=== PATIENT | male | born 1975 | race Caucasian/White ===

== ENCOUNTER → 2019-01-30 12:39 | Outpatient (CLI) | payer MEDICAID, SELFPAY ==
[2019-01-30 13:42] LABS: Add Manual Diff / Slide Review NO; Basophils Absolute Auto 100 /uL (0-100); Basophils Percent Auto 1.2 % (0-2); Eosinophils Absolute Auto 100 /uL (0-450); Eosinophils Percent Auto 1.9 % (2-4); Hematocrit 47.4 % (41-53); Hemoglobin 17.2 g/dL (13.5-17.5); Lymphocytes Absolute Auto 2000 /uL (1100-4500); Lymphocytes Percent Auto 41.3 % (25-40); Mean Corpuscular HGB Conc 36.4 % (30-36); Mean Corpuscular Hemoglobin 32.1 PG (26-34); Mean Corpuscular Volume 88.3 fL (80-100); Monocytes Absolute Auto 400 /uL (0-900); Monocytes Percent Auto 9.2 % (3-14); Neutrophils Absolute Auto 2300 /uL (1500-7000); Neutrophils Percent Auto 46.4 % (50-75); Platelet Count 233 X10^3/uL (150-400); Red Blood Cell Count 5.36 X10^6/uL (4.5-5.9); Red Cell Distribution Width 16.5 % (11.6-14.8); White Blood Cell Count 4.9 X10^3/uL (4.5-11.0)
[2019-01-30 13:43] LABS: Alanine Aminotransferase 10 IU/L (21-72); Albumin 4.7 g/dL (3.5-5.0); Albumin Globulin Ratio 1.5 (1.0-2.8); Alkaline Phosphatase 135 U/L (38-126); Aspartate Aminotransferase 16 IU/L (17-59); BUN Creatinine Ratio 21.4 (6-22); Bilirubin Total 1.4 mg/dL (0.2-1.3); Blood Urea Nitrogen 15 mg/dL (9-20); Calcium 9.3 mg/dL (8.4-10.2); Carbon Dioxide 11 mmol/L (22-32); Chloride 99 mmol/L (98-107); Estimated Glomerular Filt Rate > 60.0 mL/min (>60); Globulin 3.1 g/dL (1.7-4.1); Glucose 304 mg/dL (70-100); HDL Cholesterol 27 mg/dL (40-60); Potassium 4.8 mmol/L (3.4-5.1); Sodium 135 mmol/L (137-145); Total Protein 7.8 g/dL (6.3-8.2)
[2019-01-30 13:53] LABS: Hemoglobin A1C% w Est Avg Glu 13.2 % (4.0-6.0)
[2019-01-30 14:16] LABS: Cholesterol 502 mg/dL (140-199); HEMOLYSIS 185 (0-50); Triglycerides 3689 mg/dL (35-150)
== END ==
PROVIDERS: PCP Nurse Practitioner; Visit Provider Nurse Practitioner
DX: E11.9 Type 2 diabetes mellitus without complications (principal); E78.00 Pure hypercholesterolemia, unspecified; Z79.4 Long term (current) use of insulin; Z13.29 Encounter for screening for other suspected endocrine disorder
CPT/HCPCS: 36415; 80053; 80061; 83036; 84443; 85025

== ENCOUNTER 2019-09-04 12:24 | Inpatient (IN) | payer SELFPAY ==
[2019-09-04] VITALS (7 sets, daily range): BP systolic 95–128; BP diastolic 58–71; PULSE 89–112; RESP 14–24; TEMP 35.9–36.8; O2SAT 60–100; BMI 24.2
[2019-09-04] MEDS: MORPHINE 4 MG/ML INJ IV (12:43)
--- NOTE | 2019-09-04 12:43 | ED.ABDPAIN ---
HPI - Abdominal Pain <JEFFRY Hampton - Last Filed: 09/04/19 18:53> General Chief Complaint: Abdominal Pain Stated Complaint: LEFT SIDE LOWER PAIN NAUSEA Time Seen by Provider: 09/04/19 12:25 Source: patient Mode of arrival: Ambulatory Limitations: no limitations History of Present Illness HPI narrative: The patient is a 43-year-old male nonsmoker with history of type 2 diabetes and hypercholesterolemia who presents with a chief complaint of right lower quadrant pain for the past hour. He states it is getting worse. A few days ago on Tuesday he had some nausea and vomiting but states that he has improved since. States he felt completely better. States his last bowel movement was this morning. Denies any history of abdominal surgeries or kidney stones. Complains of nausea, no vomiting. Denies any chest pain. Complains of shortness of breath, but only associated with the pain. Has not taken anything to feel better. Denies any dysuria urgency or frequency. The patient does not recall the last time he checked his blood sugar, states he has been using only half of his insulin because he cannot afford more. States he has not checked his blood sugar in several days. No precipitating factors to the onset of abdominal pain 1 hour ago. Last solid food was midnight, last water intake approximately 12:15 p.m. Related Data Home Medications Medication Instructions Recorded Confirmed insulin aspart U-100 [Novolog 5 - 10 unit SUBCUT TID 09/04/19 09/04/19 U-100 Insulin aspart] Previous Rx's Medication Instructions Recorded metformin 500 mg tablet 500 mg PO BID #180 tab 01/30/19 simvastatin 10 mg tablet 10 mg PO BEDTIME #30 tab 02/13/19 insulin glargine 100 unit/mL (3 30 unit SUBCUT DAILY #15 ml 05/30/19 mL) subcutaneous pen Allergies Allergy/AdvReac Type Severity Reaction Status Date / Time No Known Drug Allergies Allergy Verified 09/04/19 12:46 Review of Systems <JEFFRY Hampton - Last Filed: 09/04/19 18:53> Review of Systems Narrative: GENERAL: Denies chills, fatigue, malaise, fever, sweats. HEENT: Denies sinus pain, ear pain, sore throat, difficulty swallowing, dizziness. RESPIRATORY: Denies dyspnea, cough, wheezing, hemoptysis, sputum. CARDIOVASCULAR: Denies chest pain, palpitations, orthopnea, edema, GASTROINTESTINAL: See HPI : Denies dysuria, frequency, incontinence, hematuria, urinary retention. MUSCULOSKELETAL: denies weakness, joint pain, or bony pain SKIN: Denies rash, skin lesions, or other NEUROLOGIC: Denies weakness, headache, numbness, change in speech, confusion, seizures, incoordination. PSYCHIATRIC: No concerning psychosocial issues. 12 point review of systems is negative except for those stated above Patient History <DARIANA HamptonMARY [facility] - Last Filed: 09/04/19 18:53> Medical History Diabetes insipidus (Chronic ~2000) Social History household members: family Smoking Status: Never smoker Smoking Status: Never smoker Exam <DARIANA Hampton- - Last Filed: 09/04/19 18:53> Narrative Exam Narrative: GENERAL: This is a well-nourished, well-developed patient, appears uncomfortable HEAD: Atraumatic. Normocephalic. No temporal or scalp tenderness. EYES: Pupils equal round and reactive. Extraocular motions intact. No scleral icterus. No injection or drainage. ENT: Nose without bleeding, purulent drainage or septal hematoma. Throat without erythema, tonsillar hypertrophy or exudate. Uvula midline. Airway patent. Dry mucous membranes. NECK: Trachea midline. No JVD or lymphadenopathy. Supple, nontender, no meningeal signs. CARDIOVASCULAR: Regular rate and rhythm without murmurs, gallops, or rubs. RESPIRATORY: Clear to auscultation. Breath sounds equal bilaterally. No wheezes, rales, or rhonchi. No cough. No increased respiratory effort. No accessory muscle use. GASTROINTESTINAL: Abdomen soft, tender to right lower quadrant palpation. Active bowel sounds all 4 quadrants. EXTREMITIES: No clubbing, cyanosis, or edema. No joint tenderness, effusion, or edema noted. BACK: Nontender without deformity or crepitance. No flank tenderness. NEURO: AOx3. SKIN: No rash or erythema on visible skin Initial Vital Signs Initial Vital Signs: Vital Signs Temperature 96.7 F L 09/04/19 12:25 Pulse Rate 112 H 09/04/19 12:25 Respiratory Rate 24 09/04/19 12:25 Blood Pressure 114/71 09/04/19 12:25 Pulse Oximetry 100 09/04/19 12:25 <Giulia Araujo DO - Last Filed: 09/04/19 19:33> Initial Vital Signs Initial Vital Signs: Vital Signs Temperature 96.7 F L 09/04/19 12:25 Pulse Rate 112 H 09/04/19 12:25 Respiratory Rate 24 09/04/19 12:25 Blood Pressure 114/71 09/04/19 12:25 Pulse Oximetry 100 09/04/19 12:25 Course <DARIANA Hampton- - Last Filed: 09/04/19 18:53> Orders Ordered: ED Orders 09/04/19 12:41 Venous Blood Gas Stat 09/04/19 12:56 Amylase Stat Complete Blood Count AUTO DIFF Stat Comprehensive Metabolic Panel Stat Ketones (Beta-Hydroxybutyrate) Stat Lactate (Lactic Acid) Stat Lipase Stat Procalcitonin Stat 09/04/19 13:26 CT abdomen pelvis w con Stat 09/04/19 14:41 Consult to [facility] [place] Stat 09/04/19 15:01 Basic Metabolic Panel Stat Lactate (Lactic Acid) Stat 09/04/19 15:14 Consult to General Surgery Stat Dextrose (D50w) 25 gm IV PRN PRN PRN Reason: Hypoglycemia Piperacillin/Tazobactam/Dextrose (Zosyn) 3.375 gm in 50 mls @ 100 mls/hr IV Q6H [facility] Sodium Chloride (Normal Saline 0.9%) 1,000 mls @ 100 mls/hr IV CONT [facility] Last Admin: 09/04/19 18:43 Dose: 100 mls/hr Documented by: NIC Insulin Aspart (Novolog Flexpen) 0 unit SUBCUT Q6H [facility]; Protocol Last Admin: 09/04/19 18:43 Dose: 5 unit Documented by: NIC Cosigned by: NOREEN Insulin Human NPH (Humulin N) 5 unit SUBCUT 0800 [facility] Insulin Human NPH (Humulin N) 10 unit SUBCUT 1600 [facility] Insulin Human NPH (Humulin N) 5 unit SUBCUT 0000 [facility] Morphine Sulfate (Morphine) 2 mg IV Q4HR PRN PRN Reason: Pain, Moderate (4-6) Ondansetron HCl (Zofran) 4 mg IV Q6HR PRN PRN Reason: Nausea And Vomiting Simvastatin (Zocor) 10 mg PO BEDTIME [facility] Discontinued Medications Hydromorphone HCl (Dilaudid) 1 mg IV NOW ONE Stop: 09/04/19 12:55 Last Admin: 09/04/19 12:59 Dose: 1 mg Documented by: LADI Sodium Chloride (Normal Saline 0.9%) 1,000 mls @ 1,000 mls/hr IV BOLUS ONE Stop: 09/04/19 13:32 Last Infusion: 09/04/19 13:45 Dose: 0 mls/hr Documented by: Admin: 09/04/19 12:44 Dose: 1,000 mls/hr Documented by: JUN Sodium Chloride (Normal Saline 0.9%) 1,000 mls @ 1,000 mls/hr IV BOLUS ONE Stop: 09/04/19 13:46 Last Infusion: 09/04/19 14:04 Dose: 0 mls/hr Documented by: Admin: 09/04/19 12:59 Dose: 1,000 mls/hr Documented by: LADI Piperacillin/Tazobactam/Dextrose (Zosyn) 3.375 gm in 50 mls @ 100 mls/hr IV NOW ONE Stop: 09/04/19 15:15 Last Infusion: 09/04/19 15:38 Dose: 0 mls/hr Documented by: Admin: 09/04/19 15:08 Dose: 100 mls/hr Documented by: LADI Piperacillin/Tazobactam/Dextrose (Zosyn) 3.375 gm in 50 mls @ 100 mls/hr IV Q6H [facility] Last Admin: 09/04/19 16:39 Dose: Not Given Documented by: SILVIA Insulin Human NPH (Humulin N) 10 unit SUBCUT NOW ONE Stop: 09/04/19 15:38 Last Admin: 09/04/19 15:45 Dose: 10 unit Documented by: LADI Cosigned by: BAKARI Insulin Human NPH (Humulin N) 10 unit SUBCUT 0000 [facility] Morphine Sulfate (Morphine) 4 mg IV NOW ONE Stop: 09/04/19 12:34 Last Admin: 09/04/19 12:43 Dose: 4 mg Documented by: JUN Morphine Sulfate (Morphine) 2 mg IV Q4HR PRN PRN Reason: Pain, Moderate (4-6) Ondansetron HCl (Zofran) 4 mg IV NOW ONE Stop: 09/04/19 12:34 Last Admin: 09/04/19 12:44 Dose: 4 mg Documented by: JUN Ondansetron HCl (Zofran) 4 mg IV Q6HR PRN PRN Reason: Nausea And Vomiting Reevaluation(s) Reevaluation #1: Patient's pain is much improved Time: 13:30 Reevaluation #2: Discussed CT results of acute appendicitis with patient. Patient's last solid intake was midnight. Last fluid intake just afternoon today. This was water. Discussed plan to speak with surgery. Time: 14:10 Consultations Consultation #1: Spoke with Dr. Mendiola from surgery, who states the patient will not get surgery today due to his uncontrolled blood sugars. Encourage medicine admit given patient's comorbidities as well as early DKA. Zosyn started per surgery. Time: 14:15 Consultation #2: Spoke with Dr. Peraza, hospitalist regarding patient's admission. At this point patient's lactate has normalized, his gap is closed from 22-16. Patient was likely in acidosis related to early DKA, however has normalized with 2 L of IV fluid. 10 units of NPH given per hospitalist. Dr. Peraza kindly admits the patient to inpatient status with surgery consult and plan for appendectomy tomorrow Time: 15:20 Vital Signs Vital signs: Vital Signs - 8 hr 09/04/19 12:25 09/04/19 13:02 09/04/19 13:08 Temperature 96.7 F L Pulse Rate 112 H Respiratory Rate 24 Blood Pressure 114/71 Blood Pressure [Right Arm] Pulse Oximetry 100 60 L 100 09/04/19 14:35 Temperature Pulse Rate 101 H Respiratory Rate 14 Blood Pressure Blood Pressure [Right Arm] 113/58 L Pulse Oximetry 93 <Giulia Araujo, DO - Last Filed: 09/04/19 19:33> Orders Ordered: ED Orders 09/04/19 12:41 Venous Blood Gas Stat 09/04/19 12:56 Amylase Stat Complete Blood Count AUTO DIFF Stat Comprehensive Metabolic Panel Stat Ketones (Beta-Hydroxybutyrate) Stat Lactate (Lactic Acid) Stat Lipase Stat Procalcitonin Stat 09/04/19 13:26 CT abdomen pelvis w con Stat 09/04/19 14:41 [place] to [facility] [place] [facility] Stat 09/04/19 15:01 Basic Metabolic Panel Stat Lactate (Lactic Acid) Stat 09/04/19 15:14 Consult to General Surgery Stat Dextrose (D50w) 25 gm IV PRN PRN PRN Reason: Hypoglycemia Piperacillin/Tazobactam/Dextrose (Zosyn) 3.375 gm in 50 mls @ 100 mls/hr IV Q6H [facility] Sodium Chloride (Normal Saline 0.9%) 1,000 mls @ 100 mls/hr IV CONT [facility] Last Admin: 09/04/19 18:43 Dose: 100 mls/hr Documented by: NIC Insulin Aspart (Novolog Flexpen) 0 unit SUBCUT Q6H [facility]; Protocol Last Admin: 09/04/19 18:43 Dose: 5 unit Documented by: NIC Cosigned by: NOREEN Insulin Human NPH (Humulin N) 5 unit SUBCUT 0800 [facility] Insulin Human NPH (Humulin N) 10 unit SUBCUT 1600 [facility] Insulin Human NPH (Humulin N) 5 unit SUBCUT 0000 [facility] Morphine Sulfate (Morphine) 2 mg IV Q4HR PRN PRN Reason: Pain, Moderate (4-6) Ondansetron HCl (Zofran) 4 mg IV Q6HR PRN PRN Reason: Nausea And Vomiting Simvastatin (Zocor) 10 mg PO BEDTIME [facility] Discontinued Medications Hydromorphone HCl (Dilaudid) 1 mg IV NOW ONE Stop: 09/04/19 12:55 Last Admin: 09/04/19 12:59 Dose: 1 mg Documented by: LADI Sodium Chloride (Normal Saline 0.9%) 1,000 mls @ 1,000 mls/hr IV BOLUS ONE Stop: 09/04/19 13:32 Last Infusion: 09/04/19 13:45 Dose: 0 mls/hr Documented by: Admin: 09/04/19 12:44 Dose: 1,000 mls/hr Documented by: JUN Sodium Chloride (Normal Saline 0.9%) 1,000 mls @ 1,000 mls/hr IV BOLUS ONE Stop: 09/04/19 13:46 Last Infusion: 09/04/19 14:04 Dose: 0 mls/hr Documented by: Admin: 09/04/19 12:59 Dose: 1,000 mls/hr Documented by: SCANAPO Piperacillin/Tazobactam/Dextrose (Zosyn) 3.375 gm in 50 mls @ 100 mls/hr IV NOW ONE Stop: 09/04/19 15:15 Last Infusion: 09/04/19 15:38 Dose: 0 mls/hr Documented by: Admin: 09/04/19 15:08 Dose: 100 mls/hr Documented by: LADI Piperacillin/Tazobactam/Dextrose (Zosyn) 3.375 gm in 50 mls @ 100 mls/hr IV Q6H [facility] Last Admin: 09/04/19 16:39 Dose: Not Given Documented by: SILVIA Insulin Human NPH (Humulin N) 10 unit SUBCUT NOW ONE Stop: 09/04/19 15:38 Last Admin: 09/04/19 15:45 Dose: 10 unit Documented by: LADI Cosigned by: BAKARI Insulin Human NPH (Humulin N) 10 unit SUBCUT 0000 [facility] Morphine Sulfate (Morphine) 4 mg IV NOW ONE Stop: 09/04/19 12:34 Last Admin: 09/04/19 12:43 Dose: 4 mg Documented by: JUN Morphine Sulfate (Morphine) 2 mg IV Q4HR PRN PRN Reason: Pain, Moderate (4-6) Ondansetron HCl (Zofran) 4 mg IV NOW ONE Stop: 09/04/19 12:34 Last Admin: 09/04/19 12:44 Dose: 4 mg Documented by: JUN Ondansetron HCl (Zofran) 4 mg IV Q6HR PRN PRN Reason: Nausea And Vomiting Vital Signs Vital signs: Vital Signs - 8 hr 09/04/19 12:25 09/04/19 13:02 09/04/19 13:08 Temperature 96.7 F L Pulse Rate 112 H Respiratory Rate 24 Blood Pressure 114/71 Blood Pressure [Right Arm] Pulse Oximetry 100 60 L 100 09/04/19 14:35 Temperature Pulse Rate 101 H Respiratory Rate 14 Blood Pressure Blood Pressure [Right Arm] 113/58 L Pulse Oximetry 93 MDM - Abdominal Pain <JEFFRY Hampton - Last Filed: 09/04/19 18:53> Lab Data Result diagrams: 09/04/19 12:56 09/04/19 18:25 Labs: Lab Results 09/04/19 09/04/19 09/04/19 Range/Units 12:41 12:56 12:56 WBC 4.6 (4.5-11.0) X10^3/uL RBC 5.25 (4.5-5.9) X10^6/uL Hgb 16.2 (13.5-17.5) g/dL Hct 46.2 (41-53) % MCV 88.0 (80-100) fL MCH 30.9 (26-34) PG MCHC 35.0 (30-36) % RDW 14.7 (11.6-14.8) % Plt Count 154 (150-400) X10^3/uL Neut % (Auto) 77.5 H (50-75) % Lymph % (Auto) 19.4 L (25-40) % [place] % (Auto) 1.8 L (3-14) % Eos % (Auto) 0.7 L (2-4) % Baso % (Auto) 0.6 (0-2) % Neut # (Auto) 3600 (7128-8884) /uL Lymph # (Auto) 900 L (5975-5952) /uL [place] # (Auto) 100 (0-900) /uL Eos # (Auto) 0 (0-450) /uL Baso # (Auto) 0 (0-100) /uL VBG pH 7.41 (7.33-7.43) VBG pCO2 27.7 L (45-50) mmHg VBG pO2 20 L (35-45) mmHg VBG HCO3 17 L (23-28) mmol/L VBG Total CO2 18 L (24-29) mmol/L VBG O2 Saturation 32 L (70-75) % VBG Base Excess -7.0 L (0-4) mmol/L Sodium (137-145) mmol/L Potassium (3.4-5.1) mmol/L Chloride (98-107) mmol/L Carbon Dioxide (22-32) mmol/L BUN (9-20) mg/dL Creatinine (0.66-1.25) mg/dL Estimated GFR (>60) mL/min BUN/Creatinine Ratio (6-22) Glucose (70-100) mg/dL Lactate (0.7-2.1) mmol/L Calcium (8.4-10.2) mg/dL Total Bilirubin (0.2-1.3) mg/dL AST (17-59) IU/L ALT (<50) IU/L Alkaline Phosphatase (38-126) U/L Total Protein (6.3-8.2) g/dL Albumin (3.5-5.0) g/dL Globulin (1.7-4.1) g/dL Albumin/Globulin Ratio (1.0-2.8) Amylase (30-110) U/L Lipase (23-300) U/L Procalcitonin < 0.05 (<0.5) ng/mL Ketones (<0.27) mmol/L 09/04/19 09/04/19 09/04/19 Range/Units 12:56 12:56 12:56 WBC (4.5-11.0) X10^3/uL RBC (4.5-5.9) X10^6/uL Hgb (13.5-17.5) g/dL Hct (41-53) % MCV (80-100) fL MCH (26-34) PG MCHC (30-36) % RDW (11.6-14.8) % Plt Count (150-400) X10^3/uL Neut % (Auto) (50-75) % Lymph % (Auto) (25-40) % [place] % (Auto) (3-14) % Eos % (Auto) (2-4) % Baso % (Auto) (0-2) % Neut # (Auto) (4219-9261) /uL Lymph # (Auto) (4100-9931) /uL [place] # (Auto) (0-900) /uL Eos # (Auto) (0-450) /uL Baso # (Auto) (0-100) /uL VBG pH (7.33-7.43) VBG pCO2 (45-50) mmHg VBG pO2 (35-45) mmHg VBG HCO3 (23-28) mmol/L VBG Total CO2 (24-29) mmol/L VBG O2 Saturation (70-75) % VBG Base Excess (0-4) mmol/L Sodium 136 L (137-145) mmol/L Potassium 3.7 (3.4-5.1) mmol/L Chloride 97 L (98-107) mmol/L Carbon Dioxide 17 L (22-32) mmol/L BUN 13 (9-20) mg/dL Creatinine 0.70 (0.66-1.25) mg/dL Estimated GFR > 60.0 (>60) mL/min BUN/Creatinine Ratio 18.6 (6-22) Glucose 414 H (70-100) mg/dL Lactate 4.3 H* (0.7-2.1) mmol/L Calcium 8.9 (8.4-10.2) mg/dL Total Bilirubin 1.3 (0.2-1.3) mg/dL AST 17 (17-59) IU/L ALT 11 (<50) IU/L Alkaline Phosphatase 79 (38-126) U/L Total Protein 6.7 (6.3-8.2) g/dL Albumin 4.4 (3.5-5.0) g/dL Globulin 2.3 (1.7-4.1) g/dL Albumin/Globulin Ratio 1.9 (1.0-2.8) Amylase 48 (30-110) U/L Lipase 64 (23-300) U/L Procalcitonin (<0.5) ng/mL Ketones 6.07 H (<0.27) mmol/L 09/04/19 09/04/19 Range/Units 15:01 15:01 WBC (4.5-11.0) X10^3/uL RBC (4.5-5.9) X10^6/uL Hgb (13.5-17.5) g/dL Hct (41-53) % MCV (80-100) fL MCH (26-34) PG MCHC (30-36) % RDW (11.6-14.8) % Plt Count (150-400) X10^3/uL Neut % (Auto) (50-75) % Lymph % (Auto) (25-40) % [place] % (Auto) (3-14) % Eos % (Auto) (2-4) % Baso % (Auto) (0-2) % Neut # (Auto) (4824-1395) /uL Lymph # (Auto) (1954-3034) /uL [place] # (Auto) (0-900) /uL Eos # (Auto) (0-450) /uL Baso # (Auto) (0-100) /uL VBG pH (7.33-7.43) VBG pCO2 (45-50) mmHg VBG pO2 (35-45) mmHg VBG HCO3 (23-28) mmol/L VBG Total CO2 (24-29) mmol/L VBG O2 Saturation (70-75) % VBG Base Excess (0-4) mmol/L Sodium 137 (137-145) mmol/L Potassium 4.3 (3.4-5.1) mmol/L Chloride 102 (98-107) mmol/L Carbon Dioxide 19 L (22-32) mmol/L BUN 12 (9-20) mg/dL Creatinine 0.60 L (0.66-1.25) mg/dL Estimated GFR > 60.0 (>60) mL/min BUN/Creatinine Ratio 20.0 (6-22) Glucose 333 H (70-100) mg/dL Lactate 1.0 (0.7-2.1) mmol/L Calcium 8.1 L (8.4-10.2) mg/dL Total Bilirubin (0.2-1.3) mg/dL AST (17-59) IU/L ALT (<50) IU/L Alkaline Phosphatase (38-126) U/L Total Protein (6.3-8.2) g/dL Albumin (3.5-5.0) g/dL Globulin (1.7-4.1) g/dL Albumin/Globulin Ratio (1.0-2.8) Amylase (30-110) U/L Lipase (23-300) U/L Procalcitonin (<0.5) ng/mL Ketones (<0.27) mmol/L Point of care testing: Point of Care Testing Glucose POC [address] scan - abdomen: Radiologist's impression: Sanjiv Torres 43 M [address] [address] [address] Scan Report Signed Patient: Sanjiv Torres [facility]#: [id number] : 1975Acct:[id number] Age/Sex: 43 / MDate of Service: 09/04/19 Loc: ED Accession Number: [id number] Procedure: CT abdomen pelvis w con Ordering Provider: Alessia,Rebekah RELAY MAN-BC PROCEDURE: CT ABDOMEN PELVIS W CON INDICATIONS: right flank pain x 24 hours with nausea TECHNIQUE: After the administration of intravenous contrast, 5 mm thick sections acquired from the diaphragm to the symphysis. 5 mm coronal and sagittal reformats were acquired. For radiation dose reduction, the following was used: automated exposure control, adjustment of mA and/or kV according to patient size. COMPARISON: None. FINDINGS: Image quality: Excellent. ABDOMEN: Lung bases: Lung bases are clear. Heart size is normal. Solid organs: Liver is normal in size and enhancement. Mild hepatic steatosis is seen. Gallbladder is within normal limits. Biliary system is non dilated. Pancreas enhances normally. Spleen is normal in size and enhancement. No adrenal nodules. Kidneys demonstrate normal size and enhancement, without hydronephrosis. Peritoneum and bowel: There is no evidence of bowel obstruction. Appendix is visualized in right lower quadrant and is enlarged with extensive appendiceal wall thickening and periappendiceal fat stranding. Small amount of free fluid in the right lower quadrant abdomen extending to right paracolic gutter is seen. No abscess collection. No peritoneal free air. No other area of abnormal bowel wall thickening. Nodes and vessels: No retroperitoneal or mesenteric adenopathy by size criteria. Aorta and inferior vena cava are normal in size. Miscellaneous: No ventral hernias. PELVIS: Genitourinary: Bladder wall thickness is normal. Miscellaneous: No inguinal hernias or adenopathy. Bones: No suspicious bony lesions. No vertebral body compression fractures. IMPRESSION: 1. Finding is consistent with acute appendicitis. No evidence of periappendiceal abscess. No signs of perforation. No peritoneal free air. 2. No renal stone or hydronephrosis. Dictated by: Joby Farrar M.D. on 09/04/2019 at 13:49 Approved by: Joby Farrar M.D. on 09/04/2019 at 13:53 [facility] Narrative Medical decision making narrative: The patient is a 43-year-old male who presents with a chief complaint of right lower quadrant pain. His pain was much improved with the above-stated medications and therapies. He is a type 2 diabetic, noncompliant due to insurance changes. He presents to the emergency department early DKA, acidotic with a lactate of 4. The initial anion gap was 22, but this normalized to 16 after 2 L of IV fluids. Given patient history an dpresentation, Dr Araujo consulted regarding patients labs and admission plan. His blood sugars improved from the 400s to the high 200s. Patient was found to have acute appendicitis on CT, I contacted the surgery for consult however the patient was admitted to Medicine given his medical complexity and uncontrolled diabetes. Plan is to have surgery in the morning. Patient was admitted to Dr. Peraza with Dr. Mendiola surgery consulting. Patient states understanding and has no questions or concerns. <Giulia Araujo, DO - Last Filed: 09/04/19 19:33> Lab Data Attestation: I reviewed the patient's lab results. Labs: Lab Results 09/04/19 09/04/19 09/04/19 Range/Units 12:41 12:56 12:56 WBC 4.6 (4.5-11.0) X10^3/uL RBC 5.25 (4.5-5.9) X10^6/uL Hgb 16.2 (13.5-17.5) g/dL Hct 46.2 (41-53) % MCV 88.0 (80-100) fL MCH 30.9 (26-34) PG MCHC 35.0 (30-36) % RDW 14.7 (11.6-14.8) % Plt Count 154 (150-400) X10^3/uL Neut % (Auto) 77.5 H (50-75) % Lymph % (Auto) 19.4 L (25-40) % [place] % (Auto) 1.8 L (3-14) % Eos % (Auto) 0.7 L (2-4) % Baso % (Auto) 0.6 (0-2) % Neut # (Auto) 3600 (3524-7518) /uL Lymph # (Auto) 900 L (8735-8327) /uL [place] # (Auto) 100 (0-900) /uL Eos # (Auto) 0 (0-450) /uL Baso # (Auto) 0 (0-100) /uL VBG pH 7.41 (7.33-7.43) VBG pCO2 27.7 L (45-50) mmHg VBG pO2 20 L (35-45) mmHg VBG HCO3 17 L (23-28) mmol/L VBG Total CO2 18 L (24-29) mmol/L VBG O2 Saturation 32 L (70-75) % VBG Base Excess -7.0 L (0-4) mmol/L Sodium (137-145) mmol/L Potassium (3.4-5.1) mmol/L Chloride (98-107) mmol/L Carbon Dioxide (22-32) mmol/L BUN (9-20) mg/dL Creatinine (0.66-1.25) mg/dL Estimated GFR (>60) mL/min BUN/Creatinine Ratio (6-22) Glucose (70-100) mg/dL Lactate (0.7-2.1) mmol/L Calcium (8.4-10.2) mg/dL Total Bilirubin (0.2-1.3) mg/dL AST (17-59) IU/L ALT (<50) IU/L Alkaline Phosphatase (38-126) U/L Total Protein (6.3-8.2) g/dL Albumin (3.5-5.0) g/dL Globulin (1.7-4.1) g/dL Albumin/Globulin Ratio (1.0-2.8) Amylase (30-110) U/L Lipase (23-300) U/L Procalcitonin < 0.05 (<0.5) ng/mL Ketones (<0.27) mmol/L 09/04/19 09/04/19 09/04/19 Range/Units 12:56 12:56 12:56 WBC (4.5-11.0) X10^3/uL RBC (4.5-5.9) X10^6/uL Hgb (13.5-17.5) g/dL Hct (41-53) % MCV (80-100) fL MCH (26-34) PG MCHC (30-36) % RDW (11.6-14.8) % Plt Count (150-400) X10^3/uL Neut % (Auto) (50-75) % Lymph % (Auto) (25-40) % [place] % (Auto) (3-14) % Eos % (Auto) (2-4) % Baso % (Auto) (0-2) % Neut # (Auto) (5646-9532) /uL Lymph # (Auto) (8992-5048) /uL [place] # (Auto) (0-900) /uL Eos # (Auto) (0-450) /uL Baso # (Auto) (0-100) /uL VBG pH (7.33-7.43) VBG pCO2 (45-50) mmHg VBG pO2 (35-45) mmHg VBG HCO3 (23-28) mmol/L VBG Total CO2 (24-29) mmol/L VBG O2 Saturation (70-75) % VBG Base Excess (0-4) mmol/L Sodium 136 L (137-145) mmol/L Potassium 3.7 (3.4-5.1) mmol/L Chloride 97 L (98-107) mmol/L Carbon Dioxide 17 L (22-32) mmol/L BUN 13 (9-20) mg/dL Creatinine 0.70 (0.66-1.25) mg/dL Estimated GFR > 60.0 (>60) mL/min BUN/Creatinine Ratio 18.6 (6-22) Glucose 414 H (70-100) mg/dL Lactate 4.3 H* (0.7-2.1) mmol/L Calcium 8.9 (8.4-10.2) mg/dL Total Bilirubin 1.3 (0.2-1.3) mg/dL AST 17 (17-59) IU/L ALT 11 (<50) IU/L Alkaline Phosphatase 79 (38-126) U/L Total Protein 6.7 (6.3-8.2) g/dL Albumin 4.4 (3.5-5.0) g/dL Globulin 2.3 (1.7-4.1) g/dL Albumin/Globulin Ratio 1.9 (1.0-2.8) Amylase 48 (30-110) U/L Lipase 64 (23-300) U/L Procalcitonin (<0.5) ng/mL Ketones 6.07 H (<0.27) mmol/L 09/04/19 09/04/19 Range/Units 15:01 15:01 WBC (4.5-11.0) X10^3/uL RBC (4.5-5.9) X10^6/uL Hgb (13.5-17.5) g/dL Hct (41-53) % MCV (80-100) fL MCH (26-34) PG MCHC (30-36) % RDW (11.6-14.8) % Plt Count (150-400) X10^3/uL Neut % (Auto) (50-75) % Lymph % (Auto) (25-40) % [place] % (Auto) (3-14) % Eos % (Auto) (2-4) % Baso % (Auto) (0-2) % Neut # (Auto) (6043-6484) /uL Lymph # (Auto) (3507-4848) /uL [place] # (Auto) (0-900) /uL Eos # (Auto) (0-450) /uL Baso # (Auto) (0-100) /uL VBG pH (7.33-7.43) VBG pCO2 (45-50) mmHg VBG pO2 (35-45) mmHg VBG HCO3 (23-28) mmol/L VBG Total CO2 (24-29) mmol/L VBG O2 Saturation (70-75) % VBG Base Excess (0-4) mmol/L Sodium 137 (137-145) mmol/L Potassium 4.3 (3.4-5.1) mmol/L Chloride 102 (98-107) mmol/L Carbon Dioxide 19 L (22-32) mmol/L BUN 12 (9-20) mg/dL Creatinine 0.60 L (0.66-1.25) mg/dL Estimated GFR > 60.0 (>60) mL/min BUN/Creatinine Ratio 20.0 (6-22) Glucose 333 H (70-100) mg/dL Lactate 1.0 (0.7-2.1) mmol/L Calcium 8.1 L (8.4-10.2) mg/dL Total Bilirubin (0.2-1.3) mg/dL AST (17-59) IU/L ALT (<50) IU/L Alkaline Phosphatase (38-126) U/L Total Protein (6.3-8.2) g/dL Albumin (3.5-5.0) g/dL Globulin (1.7-4.1) g/dL Albumin/Globulin Ratio (1.0-2.8) Amylase (30-110) U/L Lipase (23-300) U/L Procalcitonin (<0.5) ng/mL Ketones (<0.27) mmol/L Point of care testing: Point of Care Testing Glucose POC 261 MDM Narrative Medical decision making narrative: Initial anion gap 22 elevated lactate 4.3 Patient was dramatic and hyperventilating upon arrival. He received 2 L of IV fluids an I and a gap is now 16. Lactic acid has returned to normal. This time I don't see a necessity for insulin drip. Discharge Plan Departure Patient Disposition: Admitted As Inpatient Clinical Impression: Hyperglycemia Appendicitis Qualifiers: Appendicitis type: acute appendicitis Acute appendicitis type: unspecified acute appendicitis type Qualified Code(s): K35.80 - Unspecified acute appendicitis Discharge Date/Time: 09/04/19 16:03 Admit Date/Time: 09/04/19 16:03 Admit Provider: Gary Peraza
[2019-09-04] MEDS: ONDANSETRON 4 MG/2 ML INJ IV (12:44)
[2019-09-04] MEDS: SODIUM CHLORIDE 0.9% 1,000 ML 1000 ML IV ×2 (12:44→12:59)
[2019-09-04] MEDS: HYDROMORPHONE 1 MG INJ IV (12:59)
[2019-09-04 13:03] LABS: Add Manual Diff / Slide Review NO; Basophils Absolute Auto 0 /uL (0-100); Basophils Percent Auto 0.6 % (0-2); Eosinophils Absolute Auto 0 /uL (0-450); Eosinophils Percent Auto 0.7 % (2-4); Hematocrit 46.2 % (41-53); Hemoglobin 16.2 g/dL (13.5-17.5); Lymphocytes Absolute Auto 900 /uL (1100-4500); Lymphocytes Percent Auto 19.4 % (25-40); Mean Corpuscular Hemoglobin 30.9 PG (26-34); Monocytes Absolute Auto 100 /uL (0-900); Monocytes Percent Auto 1.8 % (3-14); Neutrophils Absolute Auto 3600 /uL (1500-7000); Neutrophils Percent Auto 77.5 % (50-75); Platelet Count 154 X10^3/uL (150-400); Red Blood Cell Count 5.25 X10^6/uL (4.5-5.9); Red Cell Distribution Width 14.7 % (11.6-14.8); White Blood Cell Count 4.6 X10^3/uL (4.5-11.0)
[2019-09-04 13:16] LABS: Alanine Aminotransferase 11 IU/L (<50); Albumin 4.4 g/dL (3.5-5.0); Albumin Globulin Ratio 1.9 (1.0-2.8); Alkaline Phosphatase 79 U/L (38-126); Amylase 48 U/L (30-110); Aspartate Aminotransferase 17 IU/L (17-59); BUN Creatinine Ratio 18.6 (6-22); Bilirubin Total 1.3 mg/dL (0.2-1.3); Blood Urea Nitrogen 13 mg/dL (9-20); Calcium 8.9 mg/dL (8.4-10.2); Carbon Dioxide 17 mmol/L (22-32); Chloride 97 mmol/L (98-107); Estimated Glomerular Filt Rate > 60.0 mL/min (>60); Globulin 2.3 g/dL (1.7-4.1); Glucose 414 mg/dL (70-100); HEMOLYSIS 37 (0-50); Lipase 64 U/L (23-300); Potassium 3.7 mmol/L (3.4-5.1); Sodium 136 mmol/L (137-145); Total Protein 6.7 g/dL (6.3-8.2)
[2019-09-04 13:17] LABS: Ketones (Beta-Hydroxybutyrate) 6.07 mmol/L (<0.27)
--- NOTE | 2019-09-04 13:21 | PC.NURSE ---
pt desated down to 60% after receiving 4mg morphine, and 1mg Dilaudid, oxygen placed on patient.
--- NOTE | 2019-09-04 13:26 | DI.CT.S_ITS ---
PROCEDURE: CT ABDOMEN PELVIS W CON INDICATIONS: right flank pain x 24 hours with nausea TECHNIQUE: After the administration of intravenous contrast, 5 mm thick sections acquired from the diaphragm to the symphysis. 5 mm coronal and sagittal reformats were acquired. For radiation dose reduction, the following was used: automated exposure control, adjustment of mA and/or kV according to patient size. COMPARISON: None. FINDINGS: Image quality: Excellent. ABDOMEN: Lung bases: Lung bases are clear. Heart size is normal. Solid organs: Liver is normal in size and enhancement. Mild hepatic steatosis is seen. Gallbladder is within normal limits. Biliary system is non dilated. Pancreas enhances normally. Spleen is normal in size and enhancement. No adrenal nodules. Kidneys demonstrate normal size and enhancement, without hydronephrosis. Peritoneum and bowel: There is no evidence of bowel obstruction. Appendix is visualized in right lower quadrant and is enlarged with extensive appendiceal wall thickening and periappendiceal fat stranding. Small amount of free fluid in the right lower quadrant abdomen extending to right paracolic gutter is seen. No abscess collection. No peritoneal free air. No other area of abnormal bowel wall thickening. Nodes and vessels: No retroperitoneal or mesenteric adenopathy by size criteria. Aorta and inferior vena cava are normal in size. Miscellaneous: No ventral hernias. PELVIS: Genitourinary: Bladder wall thickness is normal. Miscellaneous: No inguinal hernias or adenopathy. Bones: No suspicious bony lesions. No vertebral body compression fractures. IMPRESSION: 1. Finding is consistent with acute appendicitis. No evidence of periappendiceal abscess. No signs of perforation. No peritoneal free air. 2. No renal stone or hydronephrosis. Dictated by: Joby Farrar M.D. on 09/04/2019 at 13:49 Approved by: Joby Farrar M.D. on 09/04/2019 at 13:53
[2019-09-04 13:28] LABS: Lactate (Lactic Acid) 4.3 mmol/L (0.7-2.1)
[2019-09-04 13:35] LABS: Procalcitonin < 0.05 ng/mL (<0.5)
[2019-09-04 14:20] LABS: HCO3 VBG 17 mmol/L (23-28); Oxygen Saturation VBG 32 % (70-75); PCO2 VBG 27.7 mmHg (45-50); PO2 VBG 20 mmHg (35-45); Total CO2 VBG 18 mmol/L (24-29); pH VBG 7.41 (7.33-7.43)
[2019-09-04 14:59] LABS: Reflexed Lactate in 2 Hours Y
[2019-09-04] MEDS: PIPERACILLIN-TAZO 3.375 GM/50 ML FROZ.PIGGY IV ×2 (15:08→23:42)
[2019-09-04 15:21] LABS: Blood Urea Nitrogen 12 mg/dL (9-20); Calcium 8.1 mg/dL (8.4-10.2); Carbon Dioxide 19 mmol/L (22-32); Chloride 102 mmol/L (98-107); Estimated Glomerular Filt Rate > 60.0 mL/min (>60); Glucose 333 mg/dL (70-100); HEMOLYSIS 34 (0-50); Potassium 4.3 mmol/L (3.4-5.1); Sodium 137 mmol/L (137-145)
[2019-09-04] MEDS: INSULIN NPH 100 UNIT/ML VIAL 10 UNIT SUBCUT (15:45)
--- NOTE | 2019-09-04 15:55 | P.CONS_ITS ---
History of Present Illness Consult details Date Patient Seen: 09/04/19 Time Patient Seen: 15:56 Chief complaint: LEFT SIDE LOWER PAIN NAUSEA Reason for consult: Acute appendicitis with diabetic ketoacidosis Narrative: 43-year-old white male patient was and wakened this morning with right lower quadrant abdominal pain. He is an insulin-dependent diabetic for the past 20 years and is very poorly controlled. He comes in with a blood sugar nearly 400 a lactic acid of 4-1/2. He has had an abdominal CT scan which shows uncomplicated acute appendicitis. He has been admitted on the medical service for control of his DKA. IV antibiotics have been started. My plan is appendectomy tomorrow. [facility] Medical History Diabetes insipidus (Chronic ~2000) Social History Smoking Status: Never smoker Meds Home Medications and Allergies Home Medications Medication Instructions Recorded Confirmed Type metformin 500 mg tablet 500 mg PO BID #180 tab 01/30/19 09/04/19 Rx simvastatin 10 mg tablet 10 mg PO BEDTIME #30 tab 02/13/19 09/04/19 Rx insulin glargine 100 unit/mL (3 30 unit SUBCUT DAILY #15 ml 05/30/19 09/04/19 Rx mL) subcutaneous pen insulin aspart U-100 [Novolog 5 - 10 unit SUBCUT TID 09/04/19 09/04/19 History U-100 Insulin aspart] Allergies Allergy/AdvReac Type Severity Reaction Status Date / Time No Known Drug Allergies Allergy Verified 09/04/19 12:46 Exam Vital Signs (past 8 hours): - 09/04/19 12:25 09/04/19 13:02 09/04/19 13:08 Temperature 96.7 F L Pulse Rate 112 H Respiratory Rate 24 Blood Pressure 114/71 Blood Pressure [Right Arm] Pulse Oximetry 100 60 L 100 09/04/19 14:35 Temperature Pulse Rate 101 H Respiratory Rate 14 Blood Pressure Blood Pressure [Right Arm] 113/58 L Pulse Oximetry 93 Oxygen Delivery Method Room Air Oxygen Flow Rate 4 Narrative Exam Narrative: Patient is afebrile. Lungs clear with no rales or wheezes Heart regular rhythm no murmur Abdomen reveals exquisite right lower quadrant tenderness positive Rovsing sign. No masses are palpated. Objective Labs Result Diagrams: 09/04/19 12:56 09/04/19 15:01 Labs: Laboratory Results - last 24 hr 09/04/19 09/04/19 09/04/19 12:41 12:56 12:56 WBC 4.6 RBC 5.25 Hgb 16.2 Hct 46.2 MCV 88.0 MCH 30.9 MCHC 35.0 RDW 14.7 Plt Count 154 Neut % (Auto) 77.5 H Lymph % (Auto) 19.4 L [place] % (Auto) 1.8 L Eos % (Auto) 0.7 L Baso % (Auto) 0.6 Neut # (Auto) 3600 Lymph # (Auto) 900 L [place] # (Auto) 100 Eos # (Auto) 0 Baso # (Auto) 0 VBG pH 7.41 VBG pCO2 27.7 L VBG pO2 20 L VBG HCO3 17 L VBG Total CO2 18 L VBG O2 Saturation 32 L VBG Base Excess -7.0 L Sodium Potassium Chloride Carbon Dioxide BUN Creatinine Estimated GFR BUN/Creatinine Ratio Glucose Lactate Calcium Total Bilirubin AST ALT Alkaline Phosphatase Total Protein Albumin Globulin Albumin/Globulin Ratio Amylase Lipase Procalcitonin < 0.05 Ketones 09/04/19 09/04/19 09/04/19 12:56 12:56 12:56 WBC RBC Hgb Hct MCV MCH MCHC RDW Plt Count Neut % (Auto) Lymph % (Auto) [place] % (Auto) Eos % (Auto) Baso % (Auto) Neut # (Auto) Lymph # (Auto) [place] # (Auto) Eos # (Auto) Baso # (Auto) VBG pH VBG pCO2 VBG pO2 VBG HCO3 VBG Total CO2 VBG O2 Saturation VBG Base Excess Sodium 136 L Potassium 3.7 Chloride 97 L Carbon Dioxide 17 L BUN 13 Creatinine 0.70 Estimated GFR > 60.0 BUN/Creatinine Ratio 18.6 Glucose 414 H Lactate 4.3 H* Calcium 8.9 Total Bilirubin 1.3 AST 17 ALT 11 Alkaline Phosphatase 79 Total Protein 6.7 Albumin 4.4 Globulin 2.3 Albumin/Globulin Ratio 1.9 Amylase 48 Lipase 64 Procalcitonin Ketones 6.07 H 09/04/19 09/04/19 15:01 15:01 WBC RBC Hgb Hct MCV MCH MCHC RDW Plt Count Neut % (Auto) Lymph % (Auto) [place] % (Auto) Eos % (Auto) Baso % (Auto) Neut # (Auto) Lymph # (Auto) [place] # (Auto) Eos # (Auto) Baso # (Auto) VBG pH VBG pCO2 VBG pO2 VBG HCO3 VBG Total CO2 VBG O2 Saturation VBG Base Excess Sodium 137 Potassium 4.3 Chloride 102 Carbon Dioxide 19 L BUN 12 Creatinine 0.60 L Estimated GFR > 60.0 BUN/Creatinine Ratio 20.0 Glucose 333 H Lactate 1.0 Calcium 8.1 L Total Bilirubin AST ALT Alkaline Phosphatase Total Protein Albumin Globulin Albumin/Globulin Ratio Amylase Lipase Procalcitonin Ketones Assessment & Plan Assessment & Plan narrative: Patient in DKA. He also has acute appendicitis. He will be treated with intravenous Zosyn and have an appendectomy tomorrow when his blood sugars are under control. I have discussed this case with the hospitalist. The patient understands the plan and agrees.
--- NOTE | 2019-09-04 18:00 | PM.PN.1 ---
Subjective Subjective Date Patient Seen: 09/04/19 Time Patient Seen: 18:00 Interval history: Sanjiv Torres is a 43-year-old male with history of uncontrolled likely type 2 diabetes, insulin dependent, and hyperlipidemia who presented to the emergency room with right lower quadrant pain since 10:00 a.m. this morning. Patient states this morning he developed sudden, sharp, right lower quadrant abdominal pain which was nonradiating and constant that continued throughout today. His pain continued to become so severe that he could barely take a breath. He denies any nausea or vomiting today but does endorse an episode a few days ago. His nausea continued slightly but he did not vomit any further. His nausea would improve when he was able to take a short-acting insulin. He was without insurance after switching jobs, it is scheduled to restart at beginning of the year. Because of this, he ran out of his long-acting insulin and was sparingly taking his short-acting insulin with meals to control his blood sugars much as possible. He also takes metformin which he still has at home as well as simvastatin. In the ED patient was noted to have a mild tachycardia, but other vital signs were unremarkable. Initial lab results showed an anion gap metabolic acidosis with a blood glucose of 300. His initial gap was 22, he also had a lactate of 4. He was started on IV fluids and labs were repeated. His gap improved to 16, and his sugar came down slightly. His bicarb is only minimally low at 19. He did have ketones in his blood. Notably the patient had outpatient lab work which showed a more significant gap and more profound acidosis as an outpatient, the patient was asymptomatic at that time as well. CT abdomen pelvis which showed acute appendicitis. Discussed the case with general surgery and patient will be admitted to Medicine for diabetes control with laparoscopic cholecystectomy planned for tomorrow. Given the patient's well appearance, and rapid improvement with only fluids, at the very worse this is a mild case of DKA. His anion gap may be more indicative of lactic acidosis given his appendicitis. I recommended the ED give 10 units of NPH. He usually takes 30 units of long-acting insulin at home. We will continue this regimen tonight, and in the morning will he will get a half dose of NPH prior to going to the operating room. We will repeat his labs overnight to ensure that his gap is closed. Exam Vital Signs (past 8 hours): - 09/04/19 12:25 09/04/19 13:02 09/04/19 13:08 Temperature 96.7 F L Pulse Rate 112 H Respiratory Rate 24 Blood Pressure 114/71 Blood Pressure [Right Arm] Pulse Oximetry 100 60 L 100 09/04/19 14:35 09/04/19 16:16 Temperature 98.2 F Pulse Rate 101 H 98 H Respiratory Rate 14 20 Blood Pressure 128/70 Blood Pressure [Right Arm] 113/58 L Pulse Oximetry 93 97 Oxygen Delivery Method Room Air Oxygen Flow Rate 0 Narrative Exam Narrative: GENERAL APPEARANCE: Well developed, well nourished, in no acute distress. SKIN: Inspection of the skin reveals no rashes, ulcerations or petechiae. HEENT: The sclerae were anicteric and conjunctivae were pink and moist. Extraocular movements were intact and pupils were equal, round with normal accommodation. External inspection of the ears and nose showed no scars, lesions, or masses. Lips, teeth, and gums showed normal mucosa. The oral mucosa, hard and soft palate, tongue and posterior pharynx were unremarkable. NECK: Supple and symmetric. There was no thyroid enlargement, and no tenderness, or masses were felt. CHEST: Normal AP diameter and normal contour without any kyphoscoliosis. LUNGS: Auscultation of the lungs revealed no wheezes, rhonchi, or rales. CARDIOVASCULAR: There was a regular rate and rhythm without any murmurs, gallops, rubs. Peripheral pulses were 2+ and symmetric. ABDOMEN: Soft, tender with voluntary guarding in the right lower quadrant. Nondistended. MUSCULOSKELETAL: There was no tenderness or effusions noted. Muscle strength and tone were normal. EXTREMITIES: No cyanosis, clubbing or edema. NEUROLOGIC: Alert and oriented x 3. Normal affect. Gait was normal. Strength is +5/5 in the Upper Extremities and Lower Extremities Bilaterally. Sensation to touch was normal bilaterally. Objective Imaging CT scan - abdomen: Radiologist's impression: Acute appendicitis Labs Result Diagrams: 09/04/19 12:56 09/04/19 15:01 Labs: Laboratory Results - last 24 hr 09/04/19 09/04/19 09/04/19 12:41 12:56 12:56 WBC 4.6 RBC 5.25 Hgb 16.2 Hct 46.2 MCV 88.0 MCH 30.9 MCHC 35.0 RDW 14.7 Plt Count 154 Neut % (Auto) 77.5 H Lymph % (Auto) 19.4 L [place] % (Auto) 1.8 L Eos % (Auto) 0.7 L Baso % (Auto) 0.6 Neut # (Auto) 3600 Lymph # (Auto) 900 L [place] # (Auto) 100 Eos # (Auto) 0 Baso # (Auto) 0 VBG pH 7.41 VBG pCO2 27.7 L VBG pO2 20 L VBG HCO3 17 L VBG Total CO2 18 L VBG O2 Saturation 32 L VBG Base Excess -7.0 L Sodium Potassium Chloride Carbon Dioxide BUN Creatinine Estimated GFR BUN/Creatinine Ratio Glucose Lactate Calcium Total Bilirubin AST ALT Alkaline Phosphatase Total Protein Albumin Globulin Albumin/Globulin Ratio Amylase Lipase Procalcitonin < 0.05 Ketones 09/04/19 09/04/19 09/04/19 12:56 12:56 12:56 WBC RBC Hgb Hct MCV MCH MCHC RDW Plt Count Neut % (Auto) Lymph % (Auto) [place] % (Auto) Eos % (Auto) Baso % (Auto) Neut # (Auto) Lymph # (Auto) [place] # (Auto) Eos # (Auto) Baso # (Auto) VBG pH VBG pCO2 VBG pO2 VBG HCO3 VBG Total CO2 VBG O2 Saturation VBG Base Excess Sodium 136 L Potassium 3.7 Chloride 97 L Carbon Dioxide 17 L BUN 13 Creatinine 0.70 Estimated GFR > 60.0 BUN/Creatinine Ratio 18.6 Glucose 414 H Lactate 4.3 H* Calcium 8.9 Total Bilirubin 1.3 AST 17 ALT 11 Alkaline Phosphatase 79 Total Protein 6.7 Albumin 4.4 Globulin 2.3 Albumin/Globulin Ratio 1.9 Amylase 48 Lipase 64 Procalcitonin Ketones 6.07 H 09/04/19 09/04/19 15:01 15:01 WBC RBC Hgb Hct MCV MCH MCHC RDW Plt Count Neut % (Auto) Lymph % (Auto) [place] % (Auto) Eos % (Auto) Baso % (Auto) Neut # (Auto) Lymph # (Auto) [place] # (Auto) Eos # (Auto) Baso # (Auto) VBG pH VBG pCO2 VBG pO2 VBG HCO3 VBG Total CO2 VBG O2 Saturation VBG Base Excess Sodium 137 Potassium 4.3 Chloride 102 Carbon Dioxide 19 L BUN 12 Creatinine 0.60 L Estimated GFR > 60.0 BUN/Creatinine Ratio 20.0 Glucose 333 H Lactate 1.0 Calcium 8.1 L Total Bilirubin AST ALT Alkaline Phosphatase Total Protein Albumin Globulin Albumin/Globulin Ratio Amylase Lipase Procalcitonin Ketones Assessment & Plan Assessment & Plan narrative: Sanjiv Torres is a 43-year-old male with history of uncontrolled likely type 2 diabetes, insulin dependent, and hyperlipidemia who presented to the emergency room with right lower quadrant pain since 10:00 a.m. this morning. He is admitted to Medicine with acute appendicitis, and metabolic acidosis which is possibly secondary to mild DKA. 1. Acute appendicitis, present on admission -okay for clear liquid diet tonight, NPO at midnight with plan for lap choly tomorrow per general surgery -appreciate general surgery assistance - continue zosyn per general surgery recommendations. 2. Metabolic acidosis, acuity uncertain, present on admission -this may be technical sales representatives of DKA however the patient also had a lactate and at worst this is a very very mild case of DKA. His acidosis could also be from an elevated lactate with hypovolemia. He had worse labs drawn as an outpatient where he had a profound gap as well. He is certainly at risk for DKA given he has not been taking much insulin due to his lack of insurance and he has acute appendicitis. He appears relatively asymptomatic from DKA if this is the true etiology, and I believe this can be managed with subcutaneous insulin at this time. His blood pH was normal, his bicarb was only minimally decreased at 17. -management of diabetes as noted below -lactate has normalized -continue IV fluids -repeat BMP and Mg to see anion gap has now closed. 3. Diabetes, insulin dependent, uncontrolled, with mild DKA as noted above -patient is out of his long-acting insulin at home due to him changing jobs and not having insurance. His insurance will become active at the beginning of next year/month. -continue checking glucose q.6 hours while NPO, with correctional scale -given 10 units of NPH in the ED, continue at 5 units every 8 hours while NPO until surgery. -continue to monitor BMP to ensure gap is closed as noted above -consult to health and social care teacher -obtain A1c in the morning, previous was done in January and was uncontrolled with A1c of 13.2 %. -hold oral antihyperglycemics at this time 4. Hyperlipidemia, chronic -continue home simvastatin 10 mg Code: Lori Arguelloica, his sister he states is his surrogate decision maker if he is unable to make decisions. Dispo: Admit as inpatient as his stay is expected to see 2 midnights
--- NOTE | 2019-09-04 18:33 | PM.HP.1 ---
History of Present Illness History of Present Illness Date Patient Seen: 09/04/19 Time Patient Seen: 18:00 Chief complaint: LEFT SIDE LOWER PAIN NAUSEA Narrative: Sanjiv Torres is a 43-year-old male with history of uncontrolled likely type 2 diabetes, insulin dependent, and hyperlipidemia who presented to the emergency room with right lower quadrant pain since 10:00 a.m. this morning. Patient states this morning he developed sudden, sharp, right lower quadrant abdominal pain which was nonradiating and constant that continued throughout today. His pain continued to become so severe that he could barely take a breath. He denies any nausea or vomiting today but does endorse an episode a few days ago. His nausea continued slightly but he did not vomit any further. His nausea would improve when he was able to take a short-acting insulin. He was without insurance after switching jobs, it is scheduled to restart at beginning of the year. Because of this, he ran out of his long-acting insulin and was sparingly taking his short-acting insulin with meals to control his blood sugars much as possible. He also takes metformin which he still has at home as well as simvastatin. In the ED patient was noted to have a mild tachycardia, but other vital signs were unremarkable. Initial lab results showed an anion gap metabolic acidosis with a blood glucose of 300. His initial gap was 22, he also had a lactate of 4. He was started on IV fluids and labs were repeated. His gap improved to 16, and his sugar came down slightly. His bicarb is only minimally low at 19. He did have ketones in his blood. Notably the patient had outpatient lab work which showed a more significant gap and more profound acidosis as an outpatient, the patient was asymptomatic at that time as well. CT abdomen pelvis which showed acute appendicitis. Discussed the case with general surgery and patient will be admitted to Medicine for diabetes control with laparoscopic cholecystectomy planned for tomorrow. Given the patient's well appearance, and rapid improvement with only fluids, at the very worse this is a mild case of DKA. His anion gap may be more indicative of lactic acidosis given his appendicitis. I recommended the ED give 10 units of NPH. He usually takes 30 units of long-acting insulin at home. We will continue this regimen tonight, and in the morning will he will get a half dose of NPH prior to going to the operating room. We will repeat his labs overnight to ensure that his gap is closed. Patient History Medical History Diabetes insipidus (Chronic ~2000) Family & Social History Social History: household members family Prior Living Arrangements House Safety & Behavioral: Feels Safe in Current Yes Environment Been Physically Hurt or No Threatened By a Person Tobacco & Substance use: Smoking Status Never smoker alcohol intake frequency holiday/special occasion Substance Use Type does not use Meds Home Medications and Allergies Home Medications Medication Instructions Recorded Confirmed Type metformin 500 mg tablet 500 mg PO BID #180 tab 01/30/19 09/04/19 Rx simvastatin 10 mg tablet 10 mg PO BEDTIME #30 tab 02/13/19 09/04/19 Rx insulin glargine 100 unit/mL (3 30 unit SUBCUT DAILY #15 ml 05/30/19 09/04/19 Rx mL) subcutaneous pen insulin aspart U-100 [Novolog 5 - 10 unit SUBCUT TID 09/04/19 09/04/19 History U-100 Insulin aspart] Allergies Allergy/AdvReac Type Severity Reaction Status Date / Time No Known Drug Allergies Allergy Verified 09/04/19 12:46 Review of Systems Review of Systems Narrative: All other systems reviewed with the patient and are negative unless otherwise stated. Exam Vital Signs (past 8 hours): - 09/04/19 12:25 09/04/19 13:02 09/04/19 13:08 Temperature 96.7 F L Pulse Rate 112 H Respiratory Rate 24 Blood Pressure 114/71 Blood Pressure [Right Arm] Pulse Oximetry 100 60 L 100 09/04/19 14:35 09/04/19 16:16 Temperature 98.2 F Pulse Rate 101 H 98 H Respiratory Rate 14 20 Blood Pressure 128/70 Blood Pressure [Right Arm] 113/58 L Pulse Oximetry 93 97 Oxygen Delivery Method Room Air Oxygen Flow Rate 0 Narrative Exam Narrative: GENERAL APPEARANCE: Well developed, well nourished, in no acute distress. SKIN: Inspection of the skin reveals no rashes, ulcerations or petechiae. HEENT: The sclerae were anicteric and conjunctivae were pink and moist. Extraocular movements were intact and pupils were equal, round with normal accommodation. External inspection of the ears and nose showed no scars, lesions, or masses. Lips, teeth, and gums showed normal mucosa. The oral mucosa, hard and soft palate, tongue and posterior pharynx were unremarkable. NECK: Supple and symmetric. There was no thyroid enlargement, and no tenderness, or masses were felt. CHEST: Normal AP diameter and normal contour without any kyphoscoliosis. LUNGS: Auscultation of the lungs revealed no wheezes, rhonchi, or rales. CARDIOVASCULAR: There was a regular rate and rhythm without any murmurs, gallops, rubs. Peripheral pulses were 2+ and symmetric. ABDOMEN: Soft, tender with voluntary guarding in the right lower quadrant. Nondistended. MUSCULOSKELETAL: There was no tenderness or effusions noted. Muscle strength and tone were normal. EXTREMITIES: No cyanosis, clubbing or edema. NEUROLOGIC: Alert and oriented x 3. Normal affect. Gait was normal. Strength is +5/5 in the Upper Extremities and Lower Extremities Bilaterally. Sensation to touch was normal bilaterally. Objective ECG Impression: Sinus tachycardia with no evidence of ischemia. Imaging CT scan - abdomen: Radiologist's impression: Acute appendicitis Labs Result Diagrams: 09/04/19 12:56 09/04/19 15:01 Labs: Laboratory Results - last 24 hr 09/04/19 09/04/19 09/04/19 12:41 12:56 12:56 WBC 4.6 RBC 5.25 Hgb 16.2 Hct 46.2 MCV 88.0 MCH 30.9 MCHC 35.0 RDW 14.7 Plt Count 154 Neut % (Auto) 77.5 H Lymph % (Auto) 19.4 L [place] % (Auto) 1.8 L Eos % (Auto) 0.7 L Baso % (Auto) 0.6 Neut # (Auto) 3600 Lymph # (Auto) 900 L [place] # (Auto) 100 Eos # (Auto) 0 Baso # (Auto) 0 VBG pH 7.41 VBG pCO2 27.7 L VBG pO2 20 L VBG HCO3 17 L VBG Total CO2 18 L VBG O2 Saturation 32 L VBG Base Excess -7.0 L Sodium Potassium Chloride Carbon Dioxide BUN Creatinine Estimated GFR BUN/Creatinine Ratio Glucose Lactate Calcium Total Bilirubin AST ALT Alkaline Phosphatase Total Protein Albumin Globulin Albumin/Globulin Ratio Amylase Lipase Procalcitonin < 0.05 Ketones 09/04/19 09/04/19 09/04/19 12:56 12:56 12:56 WBC RBC Hgb Hct MCV MCH MCHC RDW Plt Count Neut % (Auto) Lymph % (Auto) [place] % (Auto) Eos % (Auto) Baso % (Auto) Neut # (Auto) Lymph # (Auto) [place] # (Auto) Eos # (Auto) Baso # (Auto) VBG pH VBG pCO2 VBG pO2 VBG HCO3 VBG Total CO2 VBG O2 Saturation VBG Base Excess Sodium 136 L Potassium 3.7 Chloride 97 L Carbon Dioxide 17 L BUN 13 Creatinine 0.70 Estimated GFR > 60.0 BUN/Creatinine Ratio 18.6 Glucose 414 H Lactate 4.3 H* Calcium 8.9 Total Bilirubin 1.3 AST 17 ALT 11 Alkaline Phosphatase 79 Total Protein 6.7 Albumin 4.4 Globulin 2.3 Albumin/Globulin Ratio 1.9 Amylase 48 Lipase 64 Procalcitonin Ketones 6.07 H 09/04/19 09/04/19 15:01 15:01 WBC RBC Hgb Hct MCV MCH MCHC RDW Plt Count Neut % (Auto) Lymph % (Auto) [place] % (Auto) Eos % (Auto) Baso % (Auto) Neut # (Auto) Lymph # (Auto) [place] # (Auto) Eos # (Auto) Baso # (Auto) VBG pH VBG pCO2 VBG pO2 VBG HCO3 VBG Total CO2 VBG O2 Saturation VBG Base Excess Sodium 137 Potassium 4.3 Chloride 102 Carbon Dioxide 19 L BUN 12 Creatinine 0.60 L Estimated GFR > 60.0 BUN/Creatinine Ratio 20.0 Glucose 333 H Lactate 1.0 Calcium 8.1 L Total Bilirubin AST ALT Alkaline Phosphatase Total Protein Albumin Globulin Albumin/Globulin Ratio Amylase Lipase Procalcitonin Ketones Assessment & Plan Assessment & Plan narrative: Sanjiv Torres is a 43-year-old male with history of uncontrolled likely type 2 diabetes, insulin dependent, and hyperlipidemia who presented to the emergency room with right lower quadrant pain since 10:00 a.m. this morning. He is admitted to Medicine with acute appendicitis, and metabolic acidosis which is possibly secondary to mild DKA. 1. Acute appendicitis, present on admission -okay for clear liquid diet tonight, NPO at midnight with plan for lap choly tomorrow per general surgery -appreciate general surgery assistance - continue zosyn per general surgery recommendations. -EKG is nonischemic, will optimize diabetes as well as possible before operation tomorrow. 2. Metabolic acidosis, acuity uncertain, present on admission -this may be customer response representative of DKA, the patient also had a lactate and at worst this is a very very mild case of DKA. His acidosis could also be from an elevated lactate with hypovolemia. He had worse labs drawn as an outpatient where he had a profound gap as well. He is certainly at risk for DKA given he has not been taking much insulin due to his lack of insurance and he has acute appendicitis. He appears relatively asymptomatic from DKA if this is the true etiology, and I believe this can be managed with subcutaneous insulin at this time. His blood pH was normal, his bicarb was only minimally decreased at 17. -management of diabetes as noted below -lactate has normalized -continue IV fluids -repeat BMP and Mg to see anion gap has now closed. 3. Diabetes, insulin dependent, uncontrolled, with mild DKA as noted above -patient is out of his long-acting insulin at home due to him changing jobs and not having insurance. His insurance will become active at the beginning of next year/month. -continue checking glucose q.6 hours while NPO, with correctional scale -given 10 units of NPH in the ED, continue at 5 units every 8 hours while NPO until surgery. -continue to monitor BMP to ensure gap is closed as noted above -consult to social worker assistant -obtain A1c in the morning, previous was done in January and was uncontrolled with A1c of 13.2 %. -hold oral antihyperglycemics at this time 4. Hyperlipidemia, chronic -continue home simvastatin 10 mg Code: Jos, Angela, his sister he states is his surrogate decision maker if he is unable to make decisions. Dispo: Admit as inpatient as his stay is expected to see 2 midnights
[2019-09-04 18:41] LABS: BUN Creatinine Ratio 14.3 (6-22); Blood Urea Nitrogen 10 mg/dL (9-20); Calcium 8.5 mg/dL (8.4-10.2); Carbon Dioxide 17 mmol/L (22-32); Chloride 102 mmol/L (98-107); Estimated Glomerular Filt Rate > 60.0 mL/min (>60); Glucose 302 mg/dL (70-100); HEMOLYSIS < 15 (0-50); Potassium 4.3 mmol/L (3.4-5.1); Sodium 139 mmol/L (137-145)
[2019-09-04 18:42] LABS: Magnesium 1.6 mg/dL (1.6-2.3)
[2019-09-04] MEDS: INSULIN ASPART 100 UNIT/ML INSULN PEN SUBCUT (18:43)
[2019-09-04] MEDS: SODIUM CHLORIDE 0.9% 1,000 ML 100 ML IV (18:43)
[2019-09-04] MEDS: SODIUM CHLORIDE 0.45% 1,000 ML 250 ML IV ×2 (23:07→23:40)
[2019-09-04] MEDS: INSULIN ASPART 100 UNIT/ML 10ML VIAL SUBCUT (23:41)
[2019-09-04] MEDS: MORPHINE 2 MG/ML INJ IV (23:45)
[2019-09-05] VITALS (15 sets, daily range): BP systolic 108–135; BP diastolic 54–74; PULSE 76–95; RESP 10–18; TEMP 36.2–37.6; O2SAT 93–99; BMI 24.2
--- NOTE | 2019-09-05 | PATH_ITS ---
[facility] Accession Number: [id number] . 01 Material submitted: . appendix - APPENDIX . 01 Clinical history: . LEFT SIDE LOWER PAIN NAUSEA . 02 Diagnosis: Designated Appendix, Biopsy: Mature adipose tissue with marked active inflammation, serositis and fibrinopurulent exudate. Please see comment. No appendiceal tissue identified (specimen entirely submitted). Negative for atypia, dysplasia and malignancy. MRV 09/07/2019 164 Local . 02 Comment: The entire specimen is submitted for evaluation. No appendiceal tissue is identified. There is inflamed fibroadipose tissue and separate fragments of fibrinopurulent exudate. Dr. Ramírez discussed these findings with Dr. Mendiola on 09/07/2019. The differential diagnosis includes torsed epiploic appendage. . As part of routine water quality specialist, Dr. Golden also reviewed this case and agrees with the interpretation. . . . . . 02 Electronically signed: . Chelita Ramírez MD, Pathologist NPI- [id number] . 01 Gross description: . Received in formalin, labeled appendix, is a piece of lopez-yellow partially exudate-covered adipose tissue (9.7 x 6.7 x 0.5 cm). A tubular structure/ possible appendix (length-0.9 cm, diameter-0.4 cm) is identified. The specimen is serially sectioned and entirely submitted in cassettes A1-A9. ([id number]) /MRV 09/07/[id number] Local . 02 Pathologist provided ICD-10: R10.9 . 02 CPT . 308386 Performed at: [address], [place], [place] [id number] MD Gavino Jenkins MD Phone: [phone] Performed at: 02 [facility] [address] [place] [id number] MD Chelita Ramírez MD Phone: [phone]
[2019-09-05] MEDS: INSULIN NPH 100 UNIT/ML VIAL SUBCUT ×2 (01:05→08:01)
[2019-09-05] MEDS: INSULIN ASPART 100 UNIT/ML INSULN PEN SUBCUT ×3 (01:23→21:35)
[2019-09-05] MEDS: PIPERACILLIN-TAZO 3.375 GM/50 ML FROZ.PIGGY IV ×4 (03:14→21:36)
[2019-09-05 05:33] LABS: Add Manual Diff / Slide Review NO; Basophils Absolute Auto 0 /uL (0-100); Basophils Percent Auto 0.5 % (0-2); Eosinophils Absolute Auto 0 /uL (0-450); Eosinophils Percent Auto 0.7 % (2-4); Hematocrit 38.4 % (41-53); Hemoglobin 13.3 g/dL (13.5-17.5); Lymphocytes Absolute Auto 1100 /uL (1100-4500); Lymphocytes Percent Auto 18.9 % (25-40); Mean Corpuscular HGB Conc 34.7 % (30-36); Mean Corpuscular Hemoglobin 30.5 PG (26-34); Mean Corpuscular Volume 87.9 fL (80-100); Monocytes Absolute Auto 400 /uL (0-900); Monocytes Percent Auto 6.7 % (3-14); Neutrophils Absolute Auto 4300 /uL (1500-7000); Neutrophils Percent Auto 73.2 % (50-75); Platelet Count 137 X10^3/uL (150-400); Red Blood Cell Count 4.38 X10^6/uL (4.5-5.9); Red Cell Distribution Width 14.6 % (11.6-14.8); White Blood Cell Count 5.9 X10^3/uL (4.5-11.0)
[2019-09-05 05:40] LABS: Blood Urea Nitrogen 7 mg/dL (9-20); Carbon Dioxide 25 mmol/L (22-32); Chloride 101 mmol/L (98-107); Estimated Glomerular Filt Rate > 60.0 mL/min (>60); Glucose 204 mg/dL (70-100); HEMOLYSIS 33 (0-50); Magnesium 1.7 mg/dL (1.6-2.3); Potassium 3.4 mmol/L (3.4-5.1); Sodium 133 mmol/L (137-145)
[2019-09-05 05:44] LABS: Cholesterol 187 mg/dL (140-199); HDL Cholesterol 33 mg/dL (40-60); LDL Cholesterol Calculated 119 mg/dL (<100); Triglycerides 175 mg/dL (35-150)
[2019-09-05 05:56] LABS: Hemoglobin A1C% w Est Avg Glu 13.4 % (4.0-6.0)
[2019-09-05 06:51] LABS: Appearance Urine UA CLEAR; Bilirubin Urine UA 1+ (NEGATIVE); Color Urine UA YELLOW; Glucose Urine UA 1+ g/dL (Negative); Ketones Urine UA 3+ (NEGATIVE); Leukocyte Esterase Urine UA NEGATIVE (NEGATIVE); Nitrite Urine UA NEGATIVE (Negative); Occult Blood Urine UA TRACE-LYSED (Negative); Protein Urine UA NEGATIVE (Negative); Specific Gravity Urine UA 1.015 (1.000-1.035); Urobilinogen Urine UA 0.2 E.U./dL (0.2)
[2019-09-05] MEDS: SODIUM CHLORIDE 0.9% 1,000 ML 150 ML IV ×2 (06:54→14:58)
[2019-09-05 07:15] LABS: Ictotest Urine Negative (Negative); RBC Urine 0-1/HPF (0-5/HPF); WBC Urine 0-1/HPF (0-5/HPF)
[2019-09-05 07:16] LABS: Bacteria Urine Occasional (0-1); Culture Indicated Urine Cult Not Indicated; Mucus Urine 1+ (Negative)
[2019-09-05] MEDS: MORPHINE 2 MG/ML INJ IV ×3 (08:04→21:37)
[2019-09-05] MEDS: LACTATED RINGERS 1,000 ML 42 ML IV ×2 (09:24→11:16)
--- NOTE | 2019-09-05 11:20 | SUR.HOLD ---
Dr. Cobb notified patient is diabetic and CBG is 196, no new orders.
--- NOTE | 2019-09-05 11:37 | PC.NURSE ---
Patient medicated with 2mg of iv morphine for pain of 6/10, he states that this was helpful. Down to surgery at 1100! Cell phone in room. Pts pain is to R.lower quadrant and he describes it as a dull ache.
[2019-09-05] MEDS: BACITRACIN 50,000 UNIT VIAL 50000 UNIT IRR (13:30)
[2019-09-05] MEDS: BUPIVACAINE 0.5% W/ EPI (PF) 30 ML VIAL INJ (13:30)
[2019-09-05] MEDS: NEOMYCIN/POLYMYXIN/BACITRA UD OINT 2 EACH TOP (13:31)
--- NOTE | 2019-09-05 13:56 | PM.OP.1 ---
Operative Date/Time/Diagnoses Date of procedure: 09/05/19 Time of procedure: 13:57 Pre-op diagnosis: Acute appendicitis uncomplicated Post-op diagnosis: same Procedure & Clinicians Procedure: Appendectomy Same procedure as scheduled: Yes Surgeon: Fadi Mendiola Click Yes if Unassisted: Yes Anesthesia Type: General Operative Notes Findings: Acute uncomplicated appendicitis tip of the appendix coated with fibrin the remaining part of the appendix is fibrotic Closure Type: primary Specimen(s): other (Jodie appendiceal cultures and very fibrotic stranded appendix with fibrin coating the tip) Estimated Blood Loss (mL): 50 Blood products transfused: none Procedure in detail: The patient was properly identified during surgical pause prepped and draped in sterile fashion exposure of the right lower quadrant of the abdomen. the standard Issac-Clint incision was made over McBurney's point. Oblique muscle split and the grid iron fashion exposing the peritoneum which was elevated and entered so as to avoid injury to the underlying structures. the cecum was rotated into the wound and there was some cloudy turbid fluid there which was cultured. There was no abscess. I rotated the cecum into the wound and identified what appears to be a very fibrotic appendix with the tip coated in fibrin with some inflammatory changes in the surrounding fat I removed the appendix dividing the mesentery between clamps ligated the vessels with 2 0 Vicryl for excellent hemostasis the base the appendix was closed with a TA 30? staple line. the cecum was rotated back into its anatomic position. the right lower quadrant and pelvis irrigated with a L of bacitracin saline aspirated dry there was no bleeding and no further purulence. Peritoneum closed with running 2 0 Vicryl. The oblique fascia closed with 1. PDS. Subcu irrigated with bacitracin saline and the skin stapled sterile dressings applied the procedure well tolerated. Complications: none Post-operative Condition: stable Disposition: PACU
--- NOTE | 2019-09-05 14:05 | PM.PN.1 ---
Subjective Subjective Date Patient Seen: 09/05/19 Time Patient Seen: 10:30 Interval history: Sanjiv Torres is a 43-year-old male with history of uncontrolled likely type 2 diabetes, insulin dependent, and hyperlipidemia who presented to the emergency room with right lower quadrant pain. He was diagnosed with acute appendicitis and underwent appendectomy this afternoon. Yesterday his labs had improved and his DKA had resolved with subcutaneous insulin management. He still complained of right lower quadrant abdominal pain this morning, but denies any nausea or vomiting and tolerated some clear liquids last night okay. Exam Vital Signs (past 8 hours): - 09/05/19 08:00 09/05/19 10:59 Temperature 99.7 F H 97.2 F L Pulse Rate 86 82 Respiratory Rate 18 16 Blood Pressure 111/63 113/63 Pulse Oximetry 96 96 Oxygen Delivery Method Room Air Oxygen Flow Rate 0 Narrative Exam Narrative: GENERAL APPEARANCE: Well developed, well nourished, in no acute distress. SKIN: Inspection of the skin reveals no rashes, ulcerations or petechiae. HEENT: The sclerae were anicteric and conjunctivae were pink and moist. Extraocular movements were intact and pupils were equal, round with normal accommodation. External inspection of the ears and nose showed no scars, lesions, or masses. Lips, teeth, and gums showed normal mucosa. The oral mucosa, hard and soft palate, tongue and posterior pharynx were unremarkable. NECK: Supple and symmetric. There was no thyroid enlargement, and no tenderness, or masses were felt. CHEST: Normal AP diameter and normal contour without any kyphoscoliosis. LUNGS: Auscultation of the lungs revealed no wheezes, rhonchi, or rales. CARDIOVASCULAR: There was a regular rate and rhythm without any murmurs, gallops, rubs. Peripheral pulses were 2+ and symmetric. ABDOMEN: Soft, tender with voluntary guarding in the right lower quadrant. Nondistended. MUSCULOSKELETAL: There was no tenderness or effusions noted. Muscle strength and tone were normal. EXTREMITIES: No cyanosis, clubbing or edema. NEUROLOGIC: Alert and oriented x 3. Normal affect. Gait was normal. Strength is +5/5 in the Upper Extremities and Lower Extremities Bilaterally. Sensation to touch was normal bilaterally. Objective Labs Result Diagrams: 09/05/19 05:00 09/05/19 05:00 Labs: Laboratory Results - last 24 hr 09/04/19 09/04/19 09/04/19 12:41 15:01 15:01 WBC RBC Hgb Hct MCV MCH MCHC RDW Plt Count Neut % (Auto) Lymph % (Auto) [place] % (Auto) Eos % (Auto) Baso % (Auto) Neut # (Auto) Lymph # (Auto) [place] # (Auto) Eos # (Auto) Baso # (Auto) VBG pH 7.41 VBG pCO2 27.7 L VBG pO2 20 L VBG HCO3 17 L VBG Total CO2 18 L VBG O2 Saturation 32 L VBG Base Excess -7.0 L Sodium 137 Potassium 4.3 Chloride 102 Carbon Dioxide 19 L BUN 12 Creatinine 0.60 L Estimated GFR > 60.0 BUN/Creatinine Ratio 20.0 Glucose 333 H Hemoglobin A1c Lactate 1.0 Calcium 8.1 L Magnesium Triglycerides Cholesterol LDL Cholesterol, Calc HDL Cholesterol Urine Color Urine Appearance Urine pH Ur Specific [place] Urine Protein Urine Glucose (UA) Urine Ketones Urine Occult Blood Urine Nitrate Urine Bilirubin Urine Ictotest Urine Urobilinogen Ur Leukocyte Esterase Urine RBC Urine WBC Urine Bacteria Urine Mucus Ur Culture Indicated? 09/04/19 09/04/19 09/05/19 18:25 18:25 05:00 WBC RBC Hgb Hct MCV MCH MCHC RDW Plt Count Neut % (Auto) Lymph % (Auto) [place] % (Auto) Eos % (Auto) Baso % (Auto) Neut # (Auto) Lymph # (Auto) [place] # (Auto) Eos # (Auto) Baso # (Auto) VBG pH VBG pCO2 VBG pO2 VBG HCO3 VBG Total CO2 VBG O2 Saturation VBG Base Excess Sodium 139 Potassium 4.3 Chloride 102 Carbon Dioxide 17 L BUN 10 Creatinine 0.70 Estimated GFR > 60.0 BUN/Creatinine Ratio 14.3 Glucose 302 H Hemoglobin A1c Lactate Calcium 8.5 Magnesium 1.6 Triglycerides 175 H Cholesterol 187 LDL Cholesterol, Calc 119 H HDL Cholesterol 33 L Urine Color Urine Appearance Urine pH Ur Specific [place] Urine Protein Urine Glucose (UA) Urine Ketones Urine Occult Blood Urine Nitrate Urine Bilirubin Urine Ictotest Urine Urobilinogen Ur Leukocyte Esterase Urine RBC Urine WBC Urine Bacteria Urine Mucus Ur Culture Indicated? 09/05/19 09/05/19 09/05/19 05:00 05:00 05:00 WBC 5.9 RBC 4.38 L Hgb 13.3 L Hct 38.4 L MCV 87.9 MCH 30.5 MCHC 34.7 RDW 14.6 Plt Count 137 L Neut % (Auto) 73.2 Lymph % (Auto) 18.9 L [place] % (Auto) 6.7 Eos % (Auto) 0.7 L Baso % (Auto) 0.5 Neut # (Auto) 4300 Lymph # (Auto) 1100 [place] # (Auto) 400 Eos # (Auto) 0 Baso # (Auto) 0 VBG pH VBG pCO2 VBG pO2 VBG HCO3 VBG Total CO2 VBG O2 Saturation VBG Base Excess Sodium 133 L Potassium 3.4 Chloride 101 Carbon Dioxide 25 BUN 7 L Creatinine 0.50 L Estimated GFR > 60.0 BUN/Creatinine Ratio 14.0 Glucose 204 H Hemoglobin A1c 13.4 H Lactate Calcium 8.0 L Magnesium 1.7 Triglycerides Cholesterol LDL Cholesterol, Calc HDL Cholesterol Urine Color Urine Appearance Urine pH Ur Specific [place] Urine Protein Urine Glucose (UA) Urine Ketones Urine Occult Blood Urine Nitrate Urine Bilirubin Urine Ictotest Urine Urobilinogen Ur Leukocyte Esterase Urine RBC Urine WBC Urine Bacteria Urine Mucus Ur Culture Indicated? 09/05/19 06:30 WBC RBC Hgb Hct MCV MCH MCHC RDW Plt Count Neut % (Auto) Lymph % (Auto) [place] % (Auto) Eos % (Auto) Baso % (Auto) Neut # (Auto) Lymph # (Auto) [place] # (Auto) Eos # (Auto) Baso # (Auto) VBG pH VBG pCO2 VBG pO2 VBG HCO3 VBG Total CO2 VBG O2 Saturation VBG Base Excess Sodium Potassium Chloride Carbon Dioxide BUN Creatinine Estimated GFR BUN/Creatinine Ratio Glucose Hemoglobin A1c Lactate Calcium Magnesium Triglycerides Cholesterol LDL Cholesterol, Calc HDL Cholesterol Urine Color Yellow Urine Appearance Clear Urine pH 5.0 Ur Specific [place] 1.015 Urine Protein Negative Urine Glucose (UA) 1+ H Urine Ketones 3+ H Urine Occult Blood Trace-lysed Urine Nitrate Negative Urine Bilirubin 1+ H Urine Ictotest Negative Urine Urobilinogen 0.2 Ur Leukocyte Esterase Negative Urine RBC 0-1/hpf Urine WBC 0-1/hpf Urine Bacteria Occasional (0-1) Urine Mucus 1+ H Ur Culture Indicated? Cult not indicated Assessment & Plan Assessment & Plan narrative: Sanjiv Torres is a 43-year-old male with history of uncontrolled likely type 2 diabetes, insulin dependent, and hyperlipidemia who presented to the emergency room with right lower quadrant pain. He is admitted to Medicine with acute appendicitis, and metabolic acidosis which is secondary to mild DKA. His DKA has resolved and the patient underwent appendectomy this afternoon. 1. Acute appendicitis, present on admission -s/p appendectomy this afternoon. -appreciate general surgery assistance -f/u surgery recommendations re: antibiotics after surgery. 2. Metabolic acidosis, acuity uncertain, present on admission, resolved -this may be sales representative of DKA, the patient also had a lactate and at worst this is a very very mild case of DKA. His acidosis could also be from an elevated lactate with hypovolemia. He had worse labs drawn as an outpatient where he had a profound gap as well. He is certainly at risk for DKA given he has not been taking much insulin due to his lack of insurance and he has acute appendicitis. He appears relatively asymptomatic from DKA if this is the true etiology, and I believe this can be managed with subcutaneous insulin at this time. His blood pH was normal, his bicarb was only minimally decreased at 17. He improved with subcutaneous insulin and acidosis and gap has resolve.d -management of diabetes as noted below -lactate has normalized 3. Diabetes, insulin dependent, uncontrolled, with mild DKA as noted above -patient is out of his long-acting insulin at home due to him changing jobs and not having insurance. His insurance will become active at the beginning of next year/month. A1c is again 13%. -continue checking glucose q.6 hours while NPO, with correctional scale -continue NPH until lantus this evening. Consider discharge on NPH given cost considerations until patient's insurance can become active. -continue to monitor BMP to ensure gap is closed as noted above -consult to manager social media -obtain A1c in the morning, previous was done in January and was uncontrolled with A1c of 13.2 %. -hold oral antihyperglycemics at this time 4. Hyperlipidemia, chronic -continue home simvastatin 10 mg Code: Full, Angela, his sister he states is his surrogate decision maker if he is unable to make decisions. Dispo: Admit as inpatient as his stay is expected to see 2 midnights
[2019-09-05] MEDS: HYDROMORPHONE 2 MG INJ IV ×2 (14:15→14:20)
[2019-09-05] MEDS: INSULIN NPH 100 UNIT/ML VIAL 10 UNIT SUBCUT (16:52)
[2019-09-05] MEDS: SIMVASTATIN 10 MG TABLET PO (21:35)
[2019-09-06] MEDS: INSULIN NPH 100 UNIT/ML VIAL SUBCUT ×2 (00:37→08:18)
[2019-09-06] MEDS: PIPERACILLIN-TAZO 3.375 GM/50 ML FROZ.PIGGY IV ×2 (02:37→10:34)
[2019-09-06] MEDS: SODIUM CHLORIDE 0.9% 1,000 ML 150 ML IV ×2 (02:39→16:41)
[2019-09-06] MEDS: MORPHINE 2 MG/ML INJ IV (04:38)
[2019-09-06 04:47] VITALS: BP 132/73; PULSE 95; RESP 18; TEMP 37.8; O2SAT 95
--- NOTE | 2019-09-06 05:45 | PC.NURSE ---
Pt POD 1 s/p open appendectomy. DSG to RLQ saturated at 0000. DSG changed using 2 4x4s and tegaderm. No s/s infection, redness. Eleazar intact. No further drainage/oozing at site. Pt reported pain controlled until ~0400 and requested pain medication at that time for surgical site pain, rates 6/10. No further c/o pain. Pt with individualized insulin regimen. BG 183 at 0030 and 181 at 0200. Pt verbalized symptoms of hyper/hypo glycemia to this RN. Stated, I usually have high BG..Tmaz 100.0, IS at bedside, will need reinforcement on use of IS. IVF on NS at 150cc/hr. Diet order full liquid/carb consistent. Adequate UOP with SBA to BR.
[2019-09-06 05:51] LABS: Add Manual Diff / Slide Review NO; Basophils Absolute Auto 0 /uL (0-100); Basophils Percent Auto 0.5 % (0-2); Eosinophils Absolute Auto 100 /uL (0-450); Eosinophils Percent Auto 1.2 % (2-4); Hemoglobin 12.6 g/dL (13.5-17.5); Lymphocytes Absolute Auto 800 /uL (1100-4500); Lymphocytes Percent Auto 15.1 % (25-40); Mean Corpuscular HGB Conc 34.9 % (30-36); Mean Corpuscular Hemoglobin 30.6 PG (26-34); Mean Corpuscular Volume 87.8 fL (80-100); Monocytes Absolute Auto 400 /uL (0-900); Monocytes Percent Auto 7.8 % (3-14); Neutrophils Absolute Auto 4000 /uL (1500-7000); Neutrophils Percent Auto 75.4 % (50-75); Platelet Count 121 X10^3/uL (150-400); Red Cell Distribution Width 15.1 % (11.6-14.8); White Blood Cell Count 5.3 X10^3/uL (4.5-11.0)
[2019-09-06 06:05] LABS: Blood Urea Nitrogen 5 mg/dL (9-20); Calcium 7.7 mg/dL (8.4-10.2); Carbon Dioxide 24 mmol/L (22-32); Chloride 99 mmol/L (98-107); Estimated Glomerular Filt Rate > 60.0 mL/min (>60); Glucose 169 mg/dL (70-100); HEMOLYSIS < 15 (0-50); Magnesium 1.6 mg/dL (1.6-2.3); Sodium 134 mmol/L (137-145)
[2019-09-06] MEDS: POTASSIUM CHLORIDE 40 MEQ in SODIUM CHLORIDE 0.9% 500 ML 130 ML IV (06:54)
[2019-09-06 07:45] VITALS: BP 123/72; PULSE 95; RESP 15; TEMP 37.4; O2SAT 92
[2019-09-06] MEDS: INSULIN ASPART 100 UNIT/ML INSULN PEN SUBCUT ×3 (08:16→20:47)
--- NOTE | 2019-09-06 09:03 | P.PN_ITS ---
Subjective Subjective Date Patient Seen: 09/06/19 Time Patient Seen: 09:03 Interval history: Patient is almost 24 hours post appendectomy. Patient states he has much less abdominal pain than before surgery and only has modest incisional tenderness and pain. He has no nausea and vomiting. Exam Vital Signs (past 8 hours): - 09/06/19 04:47 09/06/19 07:45 Temperature 100.0 F H 99.3 F Pulse Rate 95 H 95 H Respiratory Rate 18 15 Blood Pressure 132/73 123/72 Pulse Oximetry 95 92 Oxygen Delivery Method Room Air Oxygen Flow Rate 0 Narrative Exam Narrative: Patient is febrile with temperature of a 100?. Abdomen is soft. Minimal tenderness. Normal incisional discomfort. Dressing is dry and intact. Objective Labs Result Diagrams: 09/06/19 05:25 09/06/19 05:25 Labs: Laboratory Results - last 24 hr 09/06/19 09/06/19 05:25 05:25 WBC 5.3 RBC 4.10 L Hgb 12.6 L Hct 36.0 L MCV 87.8 MCH 30.6 MCHC 34.9 RDW 15.1 H Plt Count 121 L Neut % (Auto) 75.4 H Lymph % (Auto) 15.1 L [place] % (Auto) 7.8 Eos % (Auto) 1.2 L Baso % (Auto) 0.5 Neut # (Auto) 4000 Lymph # (Auto) 800 L [place] # (Auto) 400 Eos # (Auto) 100 Baso # (Auto) 0 Sodium 134 L Potassium 3.0 L Chloride 99 Carbon Dioxide 24 BUN 5 L Creatinine 0.50 L Estimated GFR > 60.0 BUN/Creatinine Ratio 10.0 Glucose 169 H Calcium 7.7 L Magnesium 1.6 Assessment & Plan Assessment & Plan narrative: Patient is recovering well his blood sugars are improved. He has minimal discomfort. My plan is to discharge him on Cipro so I started that drug intravenously today and will transition away from the Zosyn that he is on now. G stains from surgery show no organisms. Cultures are pending. Most of his inflammatory changes were in the surrounding fat. I did remove that. There was no abscess. Because he is such a brittle diabetic my plan is to continue oral Cipro for a week after discharge. The patient will stay in the hospital least another 24 hours because of his diabetes which is not yet fully controlled.
[2019-09-06] MEDS: CIPROFLOXACIN 400 MG/200 ML PIGGYBACK 200 MG IV ×2 (09:11→19:28)
[2019-09-06 11:49] VITALS: BP 116/67; PULSE 96; RESP 17; TEMP 37.3; O2SAT 95
--- NOTE | 2019-09-06 12:16 | PC.NURSE ---
Pt has verbalized tollerable pain level of 3/10 and has required no additional pain meds this morning. He has been assisted to shower. RLQ surgical dressing has been changed after shower as it had become damp with a coversite. Pt has been up and walked around the [facility] nurses station with SBA assist.
--- NOTE | 2019-09-06 14:35 | CM.IDA ---
Initial DCP Assessment Note: Pt is a 43 yo male, resident of [place]. Pt now POD#1 from lap appy. Reviewed chart, pt is up ambulating room and hallway inpd. According to Dr Mendiola's prog note, since pt is a brittle diabetic, pt is expected to remain here an additional 24-48 hours for his blood sugars to regulate post operatively. Per review of admission counselor notes, pt qualified for [facility] exchange coverage that will be back dated to 07/27/2019 and will cover until 09/25/19. In 2019 pt's plan will be [employer]. P: DC home when medically stable, no barriers identified at this time. Pt has insurance for medication needs. SANJUANA Lanier Discharge Planning/Care Management CM Discharge Assessment Start: 09/05/19 16:13 Freq: Status: Active Protocol: Document 09/05/19 16:14 KJS (Rec: 09/05/19 16:17 KJS [id number]) Discharge Planning Assessment Assigned Inspector Scales SANJUANA Kolb Contact Information Angela Torres (sister) Advance Directives? No History Provided By Medical Record Prior Living Arrangements House Household Members family Independent with ADL's Yes Is patient alert and oriented? Yes Discharge Plan Home Whiteboard Updated in Patient Room with No name and ext. # of Inspector Scales Comment Briefly reviewed chart. Patient is a 43yr old male admitted under OBS status with abdominal pain. Patient undergoing lap appy today. Attempted to meet with patient but off floor. Received referral for insurance inquiry. Emailed admit counselors to check on whether or not patient qualifies for [employer]. Recieved response from Katharine ext# [phone] that she would check into it today. CM team to continue to follow closely for d/c planning needs . Patient most likely will need medication(s) at time of d/c for diabetes and ? Review Status In Process Next Review Type Continued Stay Review
[2019-09-06 15:56] VITALS: BP 127/74; PULSE 103; RESP 15; TEMP 36.8; O2SAT 95
[2019-09-06] MEDS: INSULIN NPH 100 UNIT/ML VIAL 10 UNIT SUBCUT (16:41)
--- NOTE | 2019-09-06 18:24 | P.PN_ITS ---
Subjective Subjective Date Patient Seen: 09/06/19 Time Patient Seen: 09:15 Interval history: Sanjiv Torres is a 43-year-old male with history of uncontrolled likely type 2 diabetes, insulin dependent, and hyperlipidemia who presented to the emergency room with right lower quadrant pain. He was diagnosed with acute appendicitis and underwent appendectomy yesterday. His pain is adequately controlled after surgery, however he still has some abdominal pain that is a ctually improved when he gets up and walks around. He feels his pain regimen is adequate at this time. He denies any fevers or chills, he has had no nausea vomiting, and feels better overall. After discussion with Dr. Mendiola of surgery today he recommended keeping the patient based on intraoperative findings, and plan to convert the patient to ciprofloxacin, which he should continue for a week afterwards. He also wanted better control of his diabetes. Exam Vital Signs (past 8 hours): - 09/06/19 11:49 09/06/19 15:56 Temperature 99.2 F 98.2 F Pulse Rate 96 H 103 H Respiratory Rate 17 15 Blood Pressure 116/67 127/74 Pulse Oximetry 95 95 Oxygen Delivery Method Room Air Oxygen Flow Rate 0 Narrative Exam Narrative: GENERAL APPEARANCE: Well developed, well nourished, in no acute distress. SKIN: Inspection of the skin reveals no rashes, ulcerations or petechiae. HEENT: The sclerae were anicteric and conjunctivae were pink and moist. Extraocular movements were intact and pupils were equal, round with normal accommodation. External inspection of the ears and nose showed no scars, lesions, or masses. Lips, teeth, and gums showed normal mucosa. The oral mucosa, hard and soft palate, tongue and posterior pharynx were unremarkable. NECK: Supple and symmetric. There was no thyroid enlargement, and no tenderness, or masses were felt. CHEST: Normal AP diameter and normal contour without any kyphoscoliosis. LUNGS: Auscultation of the lungs revealed no wheezes, rhonchi, or rales. CARDIOVASCULAR: There was a regular rate and rhythm without any murmurs, gallops, rubs. Peripheral pulses were 2+ and symmetric. ABDOMEN: Soft and appropriately tender, surgical incisions clear dry and intact. MUSCULOSKELETAL: There was no tenderness or effusions noted. Muscle strength and tone were normal. EXTREMITIES: No cyanosis, clubbing or edema. NEUROLOGIC: Alert and oriented x 3. Normal affect. Gait was normal. Strength is +5/5 in the Upper Extremities and Lower Extremities Bilaterally. Sensation to touch was normal. Objective Labs Result Diagrams: 09/06/19 05:25 09/06/19 05:25 Labs: Laboratory Results - last 24 hr 09/06/19 09/06/19 05:25 05:25 WBC 5.3 RBC 4.10 L Hgb 12.6 L Hct 36.0 L MCV 87.8 MCH 30.6 MCHC 34.9 RDW 15.1 H Plt Count 121 L Neut % (Auto) 75.4 H Lymph % (Auto) 15.1 L [place] % (Auto) 7.8 Eos % (Auto) 1.2 L Baso % (Auto) 0.5 Neut # (Auto) 4000 Lymph # (Auto) 800 L [place] # (Auto) 400 Eos # (Auto) 100 Baso # (Auto) 0 Sodium 134 L Potassium 3.0 L Chloride 99 Carbon Dioxide 24 BUN 5 L Creatinine 0.50 L Estimated GFR > 60.0 BUN/Creatinine Ratio 10.0 Glucose 169 H Calcium 7.7 L Magnesium 1.6 Assessment & Plan Assessment & Plan narrative: Sanjiv Torres is a 43-year-old male with history of uncontrolled likely type 2 diabetes, insulin dependent, and hyperlipidemia who presented to the emergency room with right lower quadrant pain. He is admitted to Medicine with acute appendicitis, and metabolic acidosis which is secondary to mild DKA. His DKA has resolved and the patient underwent appendectomy this afternoon. 1. Acute appendicitis, present on admission -currently postoperative day 1 from appendectomy. -appreciate general surgery assistance -continue ciprofloxacin per surgery, patient will need a one-week course after discharge, likely tomorrow. 2. Metabolic acidosis, acuity uncertain, present on admission, resolved -this may be medical center representative of DKA, the patient also had a lactate and at worst this is a very very mild case of DKA. His acidosis could also be from an elevated lactate with hypovolemia. He had worse labs drawn as an outpatient where he had a profound gap as well. He is certainly at risk for DKA given he has not been taking much insulin due to his lack of insurance and he has acute appendicitis. He appears relatively asymptomatic from DKA if this is the true etiology, and I believe this can be managed with subcutaneous insulin at this time. His blood pH was normal, his bicarb was only minimally decreased at 17. He improved with subcutaneous insulin and acidosis and gap has resolve.d -management of diabetes as noted below -lactate has normalized 3. Diabetes, insulin dependent, uncontrolled, with mild DKA as noted above - patient is out of his long-acting insulin at home due to him changing jobs and not having insurance. His insurance will become active at the beginning of next year/month. A1c is again 13%. -continue checking glucose q.6 hours while NPO, with correctional scale -will discharge on NPH so will attempt to control with this regimen given the patient's insurance. He was still on half dosing of NPH after the OR, which was increased today to 10 units t.i.d. to approximate his 30 units of normal Lantus dosing. -continue to monitor BMP -consult to director social welfare -A1c as noted above -continue insulin sliding scale -hold oral antihyperglycemics at this time 4. Hyperlipidemia, chronic -continue home simvastatin 10 mg Code: Jos, Angela, his sister he states is his surrogate decision maker if he is unable to make decisions. Dispo: Admit as inpatient as his stay is expected to see 2 midnights
[2019-09-06 20:31] VITALS: BP 127/76; PULSE 79; RESP 16; TEMP 37; O2SAT 95
[2019-09-06] MEDS: SIMVASTATIN 10 MG TABLET PO (20:46)
[2019-09-06 23:55] VITALS: BP 130/78; PULSE 85; RESP 18; TEMP 37.3; O2SAT 95
[2019-09-07] MEDS: SODIUM CHLORIDE 0.9% 1,000 ML 150 ML IV ×2 (00:27→06:01)
[2019-09-07] MEDS: OXYCODONE/ACETAMINOPHEN 5/325 TABLET 1 TAB PO (00:41)
[2019-09-07] MEDS: INSULIN NPH 100 UNIT/ML VIAL 10 UNIT SUBCUT ×2 (00:42→08:26)
[2019-09-07 04:30] VITALS: BP 139/72; PULSE 78; RESP 18; TEMP 36.6; O2SAT 94
[2019-09-07 06:11] LABS: Add Manual Diff / Slide Review NO; Basophils Absolute Auto 0 /uL (0-100); Basophils Percent Auto 0.5 % (0-2); Carbon Dioxide 30 mmol/L (22-32); Chloride 102 mmol/L (98-107); Eosinophils Absolute Auto 200 /uL (0-450); Eosinophils Percent Auto 3.1 % (2-4); Estimated Glomerular Filt Rate > 60.0 mL/min (>60); Glucose 113 mg/dL (70-100); HEMOLYSIS < 15 (0-50); Hematocrit 35.8 % (41-53); Hemoglobin 12.6 g/dL (13.5-17.5); Lymphocytes Absolute Auto 1000 /uL (1100-4500); Lymphocytes Percent Auto 20.8 % (25-40); Magnesium 1.7 mg/dL (1.6-2.3); Mean Corpuscular HGB Conc 35.2 % (30-36); Mean Corpuscular Hemoglobin 31.1 PG (26-34); Mean Corpuscular Volume 88.1 fL (80-100); Monocytes Absolute Auto 400 /uL (0-900); Monocytes Percent Auto 8.3 % (3-14); Neutrophils Absolute Auto 3300 /uL (1500-7000); Neutrophils Percent Auto 67.3 % (50-75); Platelet Count 128 X10^3/uL (150-400); Potassium 3.2 mmol/L (3.4-5.1); Red Blood Cell Count 4.06 X10^6/uL (4.5-5.9); Red Cell Distribution Width 14.4 % (11.6-14.8); Sodium 140 mmol/L (137-145); White Blood Cell Count 4.9 X10^3/uL (4.5-11.0)
[2019-09-07 06:12] LABS: Blood Urea Nitrogen 2 mg/dL (9-20)
[2019-09-07 08:05] VITALS: BP 135/72; PULSE 84; RESP 16; TEMP 36.8; O2SAT 96
[2019-09-07] MEDS: POTASSIUM CHLORIDE 20 MEQ TAB 40 MEQ PO (08:22)
[2019-09-07] MEDS: CIPROFLOXACIN 400 MG/200 ML PIGGYBACK 200 MG IV (08:24)
--- NOTE | 2019-09-07 09:42 | PM.PN.1 ---
Subjective Subjective Date Patient Seen: 09/07/19 Time Patient Seen: 09:42 Interval history: Patient is resting comfortably in bed asymptomatic. He has no nausea vomiting. He has absolutely no abdominal pain. Exam Vital Signs (past 8 hours): - 09/07/19 04:30 Temperature 97.8 F Pulse Rate 78 Respiratory Rate 18 Blood Pressure 139/72 Pulse Oximetry 94 Oxygen Delivery Method Room Air Oxygen Flow Rate 0 Narrative Exam Narrative: Patient is afebrile he is eating a regular diet with no nausea or pain. Abdomen is soft with absolutely no tenderness. Incision is healing beautifully with no erythema. There is no drainage. Objective Labs Result Diagrams: 09/07/19 05:25 09/07/19 05:25 Labs: Laboratory Results - last 24 hr 09/07/19 09/07/19 05:25 05:25 WBC 4.9 RBC 4.06 L Hgb 12.6 L Hct 35.8 L MCV 88.1 MCH 31.1 MCHC 35.2 RDW 14.4 Plt Count 128 L Neut % (Auto) 67.3 Lymph % (Auto) 20.8 L [place] % (Auto) 8.3 Eos % (Auto) 3.1 Baso % (Auto) 0.5 Neut # (Auto) 3300 Lymph # (Auto) 1000 L [place] # (Auto) 400 Eos # (Auto) 200 Baso # (Auto) 0 Sodium 140 Potassium 3.2 L Chloride 102 Carbon Dioxide 30 BUN 2 L Creatinine 0.50 L Estimated GFR > 60.0 BUN/Creatinine Ratio 4.0 L Glucose 113 H Calcium 8.0 L Magnesium 1.7 Assessment & Plan Assessment & Plan narrative: Patient is doing very well and is ready for discharge. His blood sugar is 113 this morning his white count is normal. He is afebrile. I have discussed the histopathology with the pathologist and the tissue that I removed was actually a phlegmon of infarcted tenia epiploica. The appendix was not included in the specimen. Therefore the patient still has his appendix. He obviously does not have appendicitis at this time. I have explained this to the patient so he understands. The patient will complete a course of 1 week course of Cipro given that he is a severe diabetic. His wound is healing beautifully. He will have his khai removed by his primary care physician. He has been encouraged to monitor his blood sugars in much more stable fashion. Patient understands the importance of avoiding severe hyperglycemia again. We will see the patient in the surgery clinic as needed. He will be discharged by the hospitalist today.
--- NOTE | 2019-09-07 11:01 | PM.DS.1 ---
History of Present Illness History of Present Illness Date Patient Seen: 09/07/19 Time Patient Seen: 11:01 Chief complaint: LEFT SIDE LOWER PAIN NAUSEA Narrative: Sanjiv Torres is a 43-year-old male with history of uncontrolled likely type 2 diabetes, insulin dependent, and hyperlipidemia who presented to the emergency room with right lower quadrant pain since 10:00 a.m. this morning. Patient states this morning he developed sudden, sharp, right lower quadrant abdominal pain which was nonradiating and constant that continued throughout today. His pain continued to become so severe that he could barely take a breath. He denies any nausea or vomiting today but does endorse an episode a few days ago. His nausea continued slightly but he did not vomit any further. His nausea would improve when he was able to take a short-acting insulin. He was without insurance after switching jobs, it is scheduled to restart at beginning of the year. Because of this, he ran out of his long-acting insulin and was sparingly taking his short-acting insulin with meals to control his blood sugars much as possible. He also takes metformin which he still has at home as well as simvastatin. In the ED patient was noted to have a mild tachycardia, but other vital signs were unremarkable. Initial lab results showed an anion gap metabolic acidosis with a blood glucose of 300. His initial gap was 22, he also had a lactate of 4. He was started on IV fluids and labs were repeated. His gap improved to 16, and his sugar came down slightly. His bicarb is only minimally low at 19. He did have ketones in his blood. Notably the patient had outpatient lab work which showed a more significant gap and more profound acidosis as an outpatient, the patient was asymptomatic at that time as well. CT abdomen pelvis which showed acute appendicitis. Discussed the case with general surgery and patient will be admitted to Medicine for diabetes control with laparoscopic cholecystectomy planned for tomorrow. Given the patient's well appearance, and rapid improvement with only fluids, at the very worse this is a mild case of DKA. His anion gap may be more indicative of lactic acidosis given his appendicitis. I recommended the ED give 10 units of NPH. He usually takes 30 units of long-acting insulin at home. We will continue this regimen tonight, and in the morning will he will get a half dose of NPH prior to going to the operating room. We will repeat his labs overnight to ensure that his gap is closed. Discharge Providers Provider Date of admission: 09/04/19 16:03 Discharge Date: 09/07/19 Primary care physician: ZULEYKA Jorgensen Consults: 09/04/19 14:41 Consult to WOMEN'S STUDIES LECTURER - Account Support Analyst Stat Comment: Pt insurance lapsed one month ago 09/04/19 15:14 Consult to General Surgery Stat Comment: Consulting Provider: Fadi Mendiola Reason for consultation: appendicitis Has provider been notified: Yes Discharge provider: Gary Peraza DO Summary Hospital Course Discharge Diagnosis: 1. Acute appendicitis, present on admission 2. Metabolic acidosis, acuity uncertain, present on admission, resolved 3. Diabetes, insulin dependent, uncontrolled, with mild DKA 4. Hyperlipidemia, chronic Hospital Course: Sanjiv Torres is a 43-year-old male with history of uncontrolled likely type 2 diabetes, insulin dependent, and hyperlipidemia who presented to the emergency room with right lower quadrant pain. He was admitted to Medicine with acute appendicitis, and metabolic acidosis which is secondary to mild DKA. His DKA resolved and the patient underwent appendectomy. He was discharged home the following day. His appendix was not removed per pathology, rather an epiploic appendage. He was discharged home to complete one week of antibiotics per surgery. 1. Acute appendicitis, present on admission -appreciate general surgery assistance -continue ciprofloxacin per surgery, patient was discharged on this regimen. 2. Metabolic acidosis, acuity uncertain, present on admission, resolved -this may be indirect sales representative of DKA, the patient also had a lactate and at worst this is a very very mild case of DKA. His acidosis could also be from an elevated lactate with hypovolemia. He had worse labs drawn as an outpatient where he had a profound gap as well. He is certainly at risk for DKA given he has not been taking much insulin due to his lack of insurance and he has acute appendicitis. He appears relatively asymptomatic from DKA if this is the true etiology, and I believe this can be managed with subcutaneous insulin at this time. His blood pH was normal, his bicarb was only minimally decreased at 17. He improved with subcutaneous insulin and acidosis and gap has resolved. -management of diabetes as noted below -lactate has normalized 3. Diabetes, insulin dependent, uncontrolled, with mild DKA as noted above -patient is out of his long-acting insulin at home due to him changing jobs and not having insurance. His insurance will become active at the beginning of next year/month. A1c is again 13%. -patient stated he had plenty of meal time insulin. I discharged him with a prescription for both Lantus and NPH so that he may have some long acting insulin depending on his insurance status. -patient to follow up with his [facility] melter, or new primary care provider once insurance is active. 4. Hyperlipidemia, chronic -continue home simvastatin 10 mg Time Spent with Patient Time spent: Greater than 30 minutes Exam Vital Signs (past 8 hours): - 09/07/19 04:30 09/07/19 08:05 Temperature 97.8 F 98.3 F Pulse Rate 78 84 Respiratory Rate 18 16 Blood Pressure 139/72 135/72 Pulse Oximetry 94 96 Oxygen Delivery Method Room Air Oxygen Flow Rate 0 Narrative Exam Narrative: GENERAL APPEARANCE: Well developed, well nourished, in no acute distress. SKIN: Inspection of the skin reveals no rashes, ulcerations or petechiae. HEENT: The sclerae were anicteric and conjunctivae were pink and moist. Extraocular movements were intact and pupils were equal, round with normal accommodation. External inspection of the ears and nose showed no scars, lesions, or masses. Lips, teeth, and gums showed normal mucosa. The oral mucosa, hard and soft palate, tongue and posterior pharynx were unremarkable. NECK: Supple and symmetric. There was no thyroid enlargement, and no tenderness, or masses were felt. CHEST: Normal AP diameter and normal contour without any kyphoscoliosis. LUNGS: Auscultation of the lungs revealed no wheezes, rhonchi, or rales. CARDIOVASCULAR: There was a regular rate and rhythm without any murmurs, gallops, rubs. Peripheral pulses were 2+ and symmetric. ABDOMEN: Soft and appropriately tender, surgical incisions clear dry and intact. MUSCULOSKELETAL: There was no tenderness or effusions noted. Muscle strength and tone were normal. EXTREMITIES: No cyanosis, clubbing or edema. NEUROLOGIC: Alert and oriented x 3. Normal affect. Gait was normal. Strength is +5/5 in the Upper Extremities and Lower Extremities Bilaterally. Sensation to touch was normal. Objective Labs Result Diagrams: 09/07/19 05:25 09/07/19 05:25 Labs: Laboratory Results - last 24 hr 09/07/19 09/07/19 05:25 05:25 WBC 4.9 RBC 4.06 L Hgb 12.6 L Hct 35.8 L MCV 88.1 MCH 31.1 MCHC 35.2 RDW 14.4 Plt Count 128 L Neut % (Auto) 67.3 Lymph % (Auto) 20.8 L [place] % (Auto) 8.3 Eos % (Auto) 3.1 Baso % (Auto) 0.5 Neut # (Auto) 3300 Lymph # (Auto) 1000 L [place] # (Auto) 400 Eos # (Auto) 200 Baso # (Auto) 0 Sodium 140 Potassium 3.2 L Chloride 102 Carbon Dioxide 30 BUN 2 L Creatinine 0.50 L Estimated GFR > 60.0 BUN/Creatinine Ratio 4.0 L Glucose 113 H Calcium 8.0 L Magnesium 1.7 Discharge Plan Discharge Plan Patient Disposition: Home Discharge comment: You were admitted to the hospital with appendicits and mild DKA. Your surgery actually revealed an infarcted tenia epiploica and you still have your appendix. You are being discharged to complete antibiotics at home. You can follow up with your primary care provider to check on your khai. You will be discharged with lantus, if you are unable to obtain this with your insurance I have prescibed NPH to [facility] for you, as this can sometimes be cheaper. Discharge orders & Medications Prescriptions: New Humulin N NPH Insulin KwikPen 100 unit/mL (3 mL) insulin pen 10 unit SUBCUT TID 30 Days Qty: 9 RF: 0 ciprofloxacin HCl 500 mg tablet 500 mg PO BID 7 Days Qty: 14 RF: 0 Continued simvastatin 10 mg tablet 10 mg PO BEDTIME Qty: 30 RF: 3 metformin 500 mg tablet 500 mg PO BID Qty: 180 RF: 3 Novolog U-100 Insulin aspart 100 unit/mL solution 5 - 10 unit SUBCUT TID RF: 0 Lantus Solostar U-100 Insulin 100 unit/mL (3 mL) insulin pen 30 unit SUBCUT DAILY 90 Days Qty: 27 RF: 0 Follow up/Referrals: Aubrie Greene ARNP [Primary Care Provider] - (please call to schedule your follow up appointment) Discharge Health Status Health Concerns: Diabetes Diet/Activity/Treatments Diet: Diet as Tolerated and Carb-consistent/Diabetic Activity: As tolerated, no heavy lifting (more than 10-15 lbs) for 2-4 weeks until follow up appointment. Visit Report/Discharge Packet Instructions: DI for an Appendectomy, Diabetic Ketoacidosis Stand Alone Forms: Surgery Discharge Discharge Data Primary Care Provider: Aubrie Greene Discharges patient from system. Discharge Date/Time: 09/07/19 12:30
== END 2019-09-07 12:30 | disposition home or self-care (01) | DRG 329 ==
LOC: ED 15:38 → AC 16:23
PROVIDERS: Nurse Practitioner Adult Health; Surgery; Admitting Provider Internal Medicine; Emergency Provider Nurse Practitioner Family; PCP Nurse Practitioner; Visit Provider Internal Medicine
PROC: (CPT 44950; principal; 2019-09-05 13:00)
DX: K55.049 Acute infarction of large intestine, extent unspecified (principal); E11.10 Type 2 diabetes mellitus with ketoacidosis without coma; T38.3X6A Underdosing of insulin and oral hypoglycemic [antidiabetic] drugs, initial encounter; Z91.120 Patient's intentional underdosing of medication regimen due to financial hardship; E78.5 Hyperlipidemia, unspecified
CPT/HCPCS: 36415; 44950; 74177; 80048; 80053; 80061; 81001; 82009; 82150; 82805; 82962; 83036; 83605; 83690; 83735; 84145; 85025; 87070; 87075; 87077; 87186; 87205; 93005; 93010; 96361; 96365; 96372; 96375; 99222; 99282; 99284; J0744; J1170; J2270; J2405; J2543; J3480; J7050; Q9967

== ENCOUNTER 2019-11-05 15:47 | Emergency (ER) | payer MEDICAID, SELFPAY ==
[2019-09-04 16:30] VITALS: BMI 24.2
[2019-11-05 15:52] VITALS: BP 129/89; PULSE 105; RESP 14; TEMP 36.8; O2SAT 100
[2019-11-05] MEDS: PROPARACAINE 0.5% OPHTH SOL 2 DROPS EYE-LEFT (16:42)
[2019-11-05] MEDS: ACETAMINOPHEN 325 MG TABLET 975 MG PO (16:42)
[2019-11-05] MEDS: IBUPROFEN 400 MG TABLET PO (16:42)
[2019-11-05] MEDS: FLUORESCEIN 1 MG STRIP EYE-RIGHT (16:42)
[2019-11-05] MEDS: POLYMYXIN B SULF/TRIMETH OPHTH 10 ML 2 DROPS EYE-RIGHT (17:25)
[2019-11-05 17:31] VITALS: PULSE 89; RESP 16; TEMP 36.9; O2SAT 99
--- NOTE | 2019-11-05 18:47 | ED_ITS ---
HPI - Eye Problem <Real Moon [facility] - Last Filed: 11/05/19 18:58> General Chief complaint: Eye Problems Stated complaint: States Really Bad Right Eye Infection Time Seen by Provider: 11/05/19 16:28 Source: patient Mode of arrival: Ambulatory Limitations: no limitations History of Present Illness HPI Narrative: This is a 44-year-old male, nonsmoker, who presents to ED with right eye discomfort without vision changes or difficulty. Patient reports onset of irritated sensation on right eye 5 days ago which has been progressively worsening. Patient reports discomfort, photosensitivity and increasing redness. Patient reports watery eyes and yellow discharge from affected eye. Patient occasionally wears contact lenses but has not been using it since the symptoms started. Patient has been taking as needed Tylenol for his discomfort. Patient denies recent cold symptoms. Related Data Home Medications Medication Instructions Recorded Confirmed insulin aspart U-100 [Novolog 5 - 10 unit SUBCUT TID 09/04/19 11/05/19 U-100 Insulin aspart] Previous Rx's Medication Instructions Recorded metformin 500 mg tablet 500 mg PO BID #180 tab 01/30/19 simvastatin 10 mg tablet 10 mg PO BEDTIME #30 tab 02/13/19 Lantus Solostar U-100 Insulin 30 unit SUBCUT DAILY 90 Days #27 ml 09/07/19 Allergies Allergy/AdvReac Type Severity Reaction Status Date / Time No Known Drug Allergies Allergy Verified 09/04/19 12:46 Review of Systems <Real Moon [facility] - Last Filed: 11/05/19 18:58> Review of Systems Narrative: General: Denies fever, chills, fatigue, malaise, sweats. HEENT: See HPI Respiratory: Denies dyspnea, cough, wheezing, hemoptysis, sputum. Cardiovascular: Denies chest pain, palpitations, orthopnea, edema. Gastrointestinal: Denies nausea, vomiting, abdominal pain, diarrhea, constipation, melena. : Denies dysuria, frequency, incontinence, hematuria, urinary retention. Musculoskeletal: Denies weakness, joint pain or bony pain. Skin: Denies rash, skin lesions, or other. Neurologic: Denies weakness, headache, numbness, change in speech, confusion, seizures, incoordination. Psychiatric: No concerning psychosocial issues. 12-point review of systems is negative except for those stated above. Patient History <ZULEYKA Mondragon - Last Filed: 11/05/19 18:58> Medical History Diabetes insipidus (Chronic ~2000) Surgical History History of appendectomy (Acute) Social History household members: family Smoking Status: Never smoker Smoking Status: Never smoker alcohol intake frequency: holidays/special occasions only Substance Use Type: does not use Exam <ZULEYKA Mondragon - Last Filed: 11/05/19 18:58> Narrative Exam Narrative: General appearance: well developed, well nourished, in mild distress. Head: normocephalic, atraumatic, no scalp lesions, non-tender. ENT: Bilateral auditory canals and tympanic membranes clear. Hearing grossly intact. Nose without bleeding, purulent discharge or deviation. Facial sinuses nontender to palpate. Mucous membrane moist, no mucosal lesion. Throat without erythema, tonsillar hypertrophy or exudate. Uvula in midline, airway patent. Neck/Thyroid: neck supple, full range of motion, no visible masses or meningeal signs. No JVD, non-tender without lymphadenopathy. Skin: no suspicious rashes, lesions over visible areas. Warm and dry and appropriate color for ethnicity. Heart: no clubbing, no cyanosis, no edema. S1 and S2 normal. RRR w/o murmurs, clicks, or bruits. Lungs: Breathing even and unlabored. No stridor. No accessory muscles used. Able to speak in full sentences. Chest: normal shape and expansion. Abdomen: non-obese, non-distended. Neurologic: alert and oriented. Cognitive exam, SURGERY ATTENDANT and PNS grossly intact on informal exam. Psych: good eye contact, normal affect. Initial Vital Signs Initial Vital Signs: Vital Signs Temperature 98.3 F 11/05/19 15:52 Pulse Rate 105 H 11/05/19 15:52 Respiratory Rate 14 11/05/19 15:52 Blood Pressure 129/89 11/05/19 15:52 Pulse Oximetry 100 11/05/19 15:52 Eyes Visual Read: normal visual read by confrontation Alignment and Position: alignment normal Periorbital: periorbital findings normal Eyelids: eyelids normal Conjunctivae: other (Grossly injected on right eye) Sclera: sclerae normal Cornea: corneas normal and fluorescein used (No uptake noted) Pupils: PERRL and pupil size bilaterally 3 EOM: EOM intact bilaterally Direct ophthalmoscopy: normal light reflex Other: IOP 11 <Asael Kuhn DO - Last Filed: 11/05/19 19:15> Initial Vital Signs Initial Vital Signs: Vital Signs Temperature 98.3 F 11/05/19 15:52 Pulse Rate 105 H 11/05/19 15:52 Respiratory Rate 14 11/05/19 15:52 Blood Pressure 129/89 11/05/19 15:52 Pulse Oximetry 100 11/05/19 15:52 Scores <ZULEYKA Mondragon - Last Filed: 11/05/19 18:58> GCS [place] coma scale eye opening: Spontaneous [place] coma scale verbal response: Orientated Nadia coma scale motor response: Obey commands [place] coma scale total score: 15 Course <ZULEYKA Mondragon - Last Filed: 11/05/19 18:58> Orders Ordered: Discontinued Medications Acetaminophen (Tylenol) 975 mg PO NOW ONE Stop: 11/05/19 16:36 Last Admin: 11/05/19 16:42 Dose: 975 mg Documented by: LADI Fluorescein Sodium (Ful-Felicitas) 1 mg EYE-RIGHT NOW ONE Stop: 11/05/19 16:36 Last Admin: 11/05/19 16:42 Dose: 1 mg Documented by: LADI Ibuprofen (Advil) 400 mg PO NOW ONE Stop: 11/05/19 16:36 Last Admin: 11/05/19 16:42 Dose: 400 mg Documented by: LADI Polymyxin/Trimethoprim Sulfate (Polytrim) 2 drops EYE-RIGHT NOW ONE Stop: 11/05/19 16:47 Last Admin: 11/05/19 17:25 Dose: 2 drops Documented by: LB Proparacaine HCl (Parcaine 0.5% Ophth Jennifer) 2 drops EYE-LEFT NOW ONE Stop: 11/05/19 16:36 Last Admin: 11/05/19 16:42 Dose: 4 drop Documented by: LADI Vital Signs Vital signs: Vital Signs - 8 hr 11/05/19 15:52 11/05/19 17:31 Temperature 98.3 F 98.4 F Pulse Rate 105 H 89 Respiratory Rate 14 16 Blood Pressure 129/89 Pulse Oximetry 100 99 <Asael Kuhn DO - Last Filed: 11/05/19 19:15> Orders Ordered: Discontinued Medications Acetaminophen (Tylenol) 975 mg PO NOW ONE Stop: 11/05/19 16:36 Last Admin: 11/05/19 16:42 Dose: 975 mg Documented by: LADI Fluorescein Sodium (Ful-Felicitas) 1 mg EYE-RIGHT NOW ONE Stop: 11/05/19 16:36 Last Admin: 11/05/19 16:42 Dose: 1 mg Documented by: LADI Ibuprofen (Advil) 400 mg PO NOW ONE Stop: 11/05/19 16:36 Last Admin: 11/05/19 16:42 Dose: 400 mg Documented by: LADI Polymyxin/Trimethoprim Sulfate (Polytrim) 2 drops EYE-RIGHT NOW ONE Stop: 11/05/19 16:47 Last Admin: 11/05/19 17:25 Dose: 2 drops Documented by: LB Proparacaine HCl (Parcaine 0.5% Ophth Jennifer) 2 drops EYE-LEFT NOW ONE Stop: 11/05/19 16:36 Last Admin: 11/05/19 16:42 Dose: 4 drop Documented by: LADI Vital Signs Vital signs: Vital Signs - 8 hr 11/05/19 15:52 11/05/19 17:31 Temperature 98.3 F 98.4 F Pulse Rate 105 H 89 Respiratory Rate 14 16 Blood Pressure 129/89 Pulse Oximetry 100 99 MDM - Eye Problem <ZULEYKA Mondragon - Last Filed: 11/05/19 18:58> Differential Diagnosis Differential diagnosis: Likely corneal abrasion, conjunctivitis and glaucoma Medical Records Attestation: I reviewed the patient's medical records. MDM Narrative Medical decision making narrative: Physical exam is consistent with bacterial conjunctivitis. Severely injected right eye conjunctiva with photosensitivity. Visual acuity was done. OD and OS as 20/50 and OU as 20/40. IOP 11 which is normal. No fluorescein uptake appreciated in right eye. Patient was medicated with Tylenol and Motrin for discomfort. Patient provided with 1st dose of Polytrim on affected eye and discharged to home with remaining dose. Patient advised to follow-up with PCP and medical record consultant next couple of days and return precautions were discussed with patient and patient verbalized understanding and agrees with the treatment plan. Discharge Plan Departure Patient Disposition: Home Clinical Impression: Bacterial conjunctivitis Discharge Date/Time: 11/05/19 17:31 Instructions: DI for Conjunctivitis Activity Restrictions/Additional Instructions: You have been diagnosed with [conjunctivitis in right eye. There was no uptake in her conjunctiva/cornea when your eye was exam with fluorescein and IOP was normal as 11]. What to do: *Take your medications as directed. Please use eye medication (Polymyxin B/Trimethoprim 1 drop on R eye every 3 hours while your awake for next 7-10 days. *Follow up with your primary care provider and medical record consultant in 2-3 days, call for an appointment. Let them know you were seen in the ED and that we asked you to be seen in follow up. *Return to ED if you have any new, worsening, or concerning symptoms, such as [decreased vision, worsening pain, redness/swelling spreading to eyelids and face, fever, chest pain, breathing difficulty or any acute concerns]. Prescriptions: No Action simvastatin 10 mg tablet 10 mg PO BEDTIME Qty: 30 RF: 3 metformin 500 mg tablet 500 mg PO BID Qty: 180 RF: 3 insulin aspart U-100 [Novolog U-100 Insulin aspart] 100 unit/mL solution 5 - 10 unit SUBCUT TID RF: 0 Lantus Solostar U-100 Insulin 100 unit/mL (3 mL) insulin pen 30 unit SUBCUT DAILY 90 Days Qty: 27 RF: 0 Referrals: Alberto Ibarra MD [Physician] - Aubrie Greene ARNP [Primary Care Provider] - <Asael Kuhn, DO - Last Filed: 11/05/19 19:15> Sign Out Provider Sign Out Attestation: Dr Kuhn Co-Sign Statement: I was available for consultation during this patient's emergency department visit. This chart is signed by myself for administrative purposes only. I did not have direct contact with this patient during this visit. They were seen independently by the APC.
== END 2019-11-05 17:31 | disposition home or self-care (01) ==
PROVIDERS: Emergency Provider Nurse Practitioner Family; PCP Nurse Practitioner
DX: H10.89 Other conjunctivitis (principal)
CPT/HCPCS: 99283

== ENCOUNTER 2020-04-24 11:19 | Inpatient (IN) | payer OTHER, MEDICAID, SELFPAY ==
[2019-09-04 16:30] VITALS: BMI 24.2
[2020-04-24] VITALS (25 sets, daily range): BP systolic 119–150; BP diastolic 70–88; PULSE 74–116; RESP 11–20; TEMP 36.2–37.6; O2SAT 92–98; BMI 24.3
[2020-04-24 12:27] LABS: PTT Partial Thromboplastin Tim 33 SECONDS (26.4-36.2)
[2020-04-24 12:30] LABS: Alanine Aminotransferase 7 IU/L (<50); Albumin Globulin Ratio 1.4 (1.0-2.8); Alkaline Phosphatase 74 U/L (38-126); Aspartate Aminotransferase 12 IU/L (17-59); BUN Creatinine Ratio 15.1 (6-22); Bilirubin Total 1.1 mg/dL (0.2-1.3); Blood Urea Nitrogen 11 mg/dL (9-20); Calcium 9.6 mg/dL (8.4-10.2); Carbon Dioxide 20 mmol/L (22-32); Chloride 99 mmol/L (98-107); Estimated Glomerular Filt Rate > 60.0 mL/min (>60); Globulin 2.9 g/dL (1.7-4.1); Glucose 297 mg/dL (70-100); HEMOLYSIS < 15 (0-50); Potassium 4.1 mmol/L (3.4-5.1); Sodium 137 mmol/L (137-145); Total Protein 6.9 g/dL (6.3-8.2)
[2020-04-24 12:31] LABS: Add Manual Diff / Slide Review NO; Basophils Absolute Auto 0 /uL (0-100); Basophils Percent Auto 0.4 % (0-2); Eosinophils Absolute Auto 300 /uL (0-450); Eosinophils Percent Auto 3.9 % (2-4); Hematocrit 44.7 % (41-53); Lymphocytes Absolute Auto 800 /uL (1100-4500); Lymphocytes Percent Auto 10.8 % (25-40); Mean Corpuscular HGB Conc 33.6 % (30-36); Mean Corpuscular Volume 92.1 fL (80-100); Monocytes Absolute Auto 600 /uL (0-900); Monocytes Percent Auto 8.4 % (3-14); Neutrophils Absolute Auto 5600 /uL (1500-7000); Neutrophils Percent Auto 76.5 % (50-75); Platelet Count 163 X10^3/uL (150-400); Red Blood Cell Count 4.85 X10^6/uL (4.5-5.9); Red Cell Distribution Width 14.1 % (11.6-14.8); White Blood Cell Count 7.4 X10^3/uL (4.5-11.0)
[2020-04-24 12:32] LABS: Lipase < 10 U/L (23-300)
--- NOTE | 2020-04-24 12:44 | ED.ABDPAIN ---
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 Patient complains of right lower quadrant pain starting 4 days ago worsening today. Nighttime chills. Watery diarrhea. No nausea or vomiting. Pain does not radiate. No urinary complaints. Patient had appendectomy surgery August 2018 however no appendix was included in the specimen. So patient essentially does still have his appendix. Related Data Previous Rx's Medication Instructions Recorded insulin aspart U-100 100 unit/mL 5 - 10 unit SUBCUT TID 90 Days #30 12/21/19 subcutaneous solution ml insulin glargine 100 unit/mL (3 30 unit SUBCUT DAILY 90 Days #27 ml 12/21/19 mL) subcutaneous pen metformin 500 mg tablet 500 mg PO BID #180 tab 12/21/19 simvastatin 10 mg tablet 10 mg PO BEDTIME #90 tab 12/21/19 Allergies Allergy/AdvReac Type Severity Reaction Status Date / Time No Known Drug Allergies Allergy Verified 04/24/20 11:45 Review of Systems Review of Systems Narrative: GENERAL: Denies fever but complains of chills HEENT: Denies sinus pain, ear pain, sore throat, difficulty swallowing, dizziness. RESPIRATORY: Denies dyspnea, cough, wheezing, hemoptysis, sputum. CARDIOVASCULAR: Denies chest pain, palpitations, orthopnea, edema, GASTROINTESTINAL: Denies nausea, vomiting, complains of abdominal pain and watery diarrhea : Denies dysuria, frequency, incontinence, hematuria, urinary retention. MUSCULOSKELETAL: denies weakness, joint pain, or bony pain SKIN: Denies rash, skin lesions, or other NEUROLOGIC: Denies weakness, headache, numbness, change in speech, confusion, seizures, incoordination. PSYCHIATRIC: No concerning psychosocial issues. ROS Unobtainable: All systems reviewed & are unremarkable except as noted in HPI and below Patient History Medical History Diabetes insipidus (Chronic ~2000) Surgical History History of appendectomy (Acute) Social History household members: family Smoking Status: Never smoker Smoking Status: Never smoker alcohol intake frequency: holidays/special occasions only Substance Use Type: does not use Exam Narrative Exam Narrative: GENERAL: patient appears stated age. Well-nourished, well-developed patient, in no distress, not toxic HEAD: Atraumatic. Normocephalic. EYES: Pupils equal round and reactive. Extraocular motions intact. No scleral icterus. No injection or drainage. ENT: Nose without bleeding, purulent drainage. Throat without erythema, tonsillar hypertrophy or exudate. Airway patent. NECK: Trachea midline. Non tender CARDIOVASCULAR: Regular rate and rhythm without murmurs, gallops, or rubs. RESPIRATORY: Clear to auscultation. Breath sounds equal bilaterally. No wheezes, rales, or rhonchi. GASTROINTESTINAL: Abdomen tender to touch right lower quadrant positive McBurney point tenderness. No peritoneal signs. Bowel sounds present. EXTREMITIES: No edema or joint tenderness. BACK: Nontender without deformity or crepitance. No flank tenderness. NEURO: AOx3. SKIN: No rash or erythema of visible areas PSYCH: Not anxious, is cooperative Initial Vital Signs Initial Vital Signs: Vital Signs Temperature 97.4 F L 04/24/20 11:35 Pulse Rate 102 H 04/24/20 11:35 Respiratory Rate 14 04/24/20 11:35 Blood Pressure 140/87 04/24/20 11:35 Pulse Oximetry 97 04/24/20 11:35 Course Course Course Narrative: CT scan report returned. Spoke with general surgery for admission Decision to Admit Date: 04/24/20 Decision to Admit time: 14:15 Orders Ordered: ED Orders 04/24/20 11:44 EKG-12 Lead Stat 04/24/20 12:04 Complete Blood Count AUTO DIFF Stat Comprehensive Metabolic Panel Stat Lactate (Lactic Acid) Stat Lipase Stat Partial Thromboplastin Time Stat Procalcitonin Stat Prothrombin Time INR Stat 04/24/20 13:00 CT abdomen pelvis w con Stat 04/24/20 13:43 Blood Culture Stat Dextrose (D50w) 25 gm IV PRN PRN; Protocol PRN Reason: Hypoglycemia Hydromorphone HCl (Dilaudid) 0 mg IV Q5M PRN PRN Reason: Pain, Severe (7-10) Hydromorphone HCl (Dilaudid) 0 mg IV Q5M PRN PRN Reason: Pain, Moderate (4-6) Hydromorphone HCl (Dilaudid) 0 mg IV Q5MIN PRN PRN Reason: Pain, Mild (1-3) Hydromorphone HCl (Dilaudid) 0.5 mg IV Q2HR PRN PRN Reason: Pain, Moderate (4-6) Hydroxyzine HCl (Vistaril) 25 mg IM NOW PRN PRN Reason: Pain, Mild (1-3) Sodium Chloride (Normal Saline 0.9%) 1,000 mls @ 150 mls/hr IV CONT [facility] Last Admin: 04/24/20 15:03 Dose: 100 mls/hr Documented by: DOUG Lactated Ringer's (Lactated Ringers) 1,000 mls @ 42 mls/hr IV CONT [facility] Last Admin: 04/24/20 18:03 Dose: 42 mls/hr Documented by: Infusion: 04/24/20 18:03 Dose: 42 mls/hr Documented by: Admin: 04/24/20 16:39 Dose: 42 mls/hr Documented by: YU Insulin Aspart (Novolog Flexpen) 0 unit SUBCUT Q6H [facility]; Protocol Last Admin: 04/24/20 16:17 Dose: Not Given Documented by: NIC Naloxone HCl (Narcan) 0.2 mg IV Q2MIN PRN PRN Reason: Opiate Reversal Ondansetron HCl (Zofran) 4 mg IV Q8HR PRN PRN Reason: Nausea And Vomiting Pantoprazole Sodium (Protonix) 20 mg IV DAILY [facility] Last Admin: 04/24/20 17:26 Dose: 20 mg Documented by: Admin: 04/24/20 17:26 Dose: 40 mg Documented by: Admin: 04/24/20 16:17 Dose: Not Given Documented by: NIC Discontinued Medications Hydromorphone HCl (Dilaudid) 0.5 mg IV Q6HR PRN PRN Reason: Pain, Moderate (4-6) Sodium Chloride (Normal Saline 0.9%) 1,000 mls @ 1,000 mls/hr IV BOLUS ONE Stop: 04/24/20 13:41 Last Infusion: 04/24/20 14:18 Dose: 0 mls/hr Documented by: Admin: 04/24/20 12:57 Dose: 1,000 mls/hr Documented by: XIANG Piperacillin/Tazobactam/Dextrose (Zosyn) 3.375 gm in 50 mls @ 100 mls/hr IV NOW ONE Stop: 04/24/20 17:10 Last Infusion: 04/24/20 17:01 Dose: 0 mls/hr Documented by: Admin: 04/24/20 16:50 Dose: 100 mls/hr Documented by: RADHA Meperidine HCl (Demerol) 12.5 mg IV NOW ONE Stop: 04/24/20 18:44 Last Admin: 04/24/20 18:50 Dose: 12.5 mg Documented by: VERONIQUE Morphine Sulfate (Morphine) 4 mg IV NOW ONE Stop: 04/24/20 12:40 Last Admin: 04/24/20 12:47 Dose: 4 mg Documented by: XIANG Ondansetron HCl (Zofran) 4 mg IV NOW ONE Stop: 04/24/20 12:40 Last Admin: 04/24/20 12:47 Dose: 4 mg Documented by: XIANG Reevaluation(s) Reevaluation #1: Spoke with patient regarding CT scan results. NG tube to be ordered Time: 14:15 Consultations Consultation #1: Spoke with general surgery Dr. Marques, will admit Time: 14:15 Vital Signs Vital signs: Vital Signs - 8 hr 04/24/20 11:35 04/24/20 13:01 04/24/20 13:30 Temperature 97.4 F L Pulse Rate 102 H 86 91 H Respiratory Rate 14 14 19 Blood Pressure 140/87 Pulse Oximetry 97 94 95 04/24/20 13:32 04/24/20 14:00 Temperature Pulse Rate 90 86 Respiratory Rate 17 20 Blood Pressure 124/78 119/72 Pulse Oximetry 97 96 MDM - Abdominal Pain Differential Diagnosis Differential diagnosis: Likely abdominal pain, acute appendicitis, calculus of kidney, diverticulitis and small bowel obstruction Lab Data Result diagrams: 04/24/20 12:04 04/24/20 12:04 Labs: Lab Results 04/24/20 04/24/20 04/24/20 Range/Units 12:04 12:04 12:04 WBC 7.4 (4.5-11.0) X10^3/uL RBC 4.85 (4.5-5.9) X10^6/uL Hgb 15.0 (13.5-17.5) g/dL Hct 44.7 (41-53) % MCV 92.1 (80-100) fL MCH 31.0 (26-34) PG MCHC 33.6 (30-36) % RDW 14.1 (11.6-14.8) % Plt Count 163 (150-400) X10^3/uL Neut % (Auto) 76.5 H (50-75) % Lymph % (Auto) 10.8 L (25-40) % [place] % (Auto) 8.4 (3-14) % Eos % (Auto) 3.9 (2-4) % Baso % (Auto) 0.4 (0-2) % Neut # (Auto) 5600 (7657-8601) /uL Lymph # (Auto) 800 L (8576-9887) /uL [place] # (Auto) 600 (0-900) /uL Eos # (Auto) 300 (0-450) /uL Baso # (Auto) 0 (0-100) /uL PT 12.0 (10.1-12.7) SECONDS INR 1.0 (0.9-1.3) APTT 33 (26.4-36.2) SECONDS Sodium 137 (137-145) mmol/L Potassium 4.1 (3.4-5.1) mmol/L Chloride 99 (98-107) mmol/L Carbon Dioxide 20 L (22-32) mmol/L BUN 11 (9-20) mg/dL Creatinine 0.73 (0.66-1.25) mg/dL Estimated GFR > 60.0 (>60) mL/min BUN/Creatinine Ratio 15.1 (6-22) Glucose 297 H (70-100) mg/dL Lactate (0.7-2.1) mmol/L Calcium 9.6 (8.4-10.2) mg/dL Total Bilirubin 1.1 (0.2-1.3) mg/dL AST 12 L (17-59) IU/L ALT 7 (<50) IU/L Alkaline Phosphatase 74 (38-126) U/L Total Protein 6.9 (6.3-8.2) g/dL Albumin 4.0 (3.5-5.0) g/dL Globulin 2.9 (1.7-4.1) g/dL Albumin/Globulin Ratio 1.4 (1.0-2.8) Lipase < 10 L (23-300) U/L Procalcitonin (<0.5) ng/mL 04/24/20 04/24/20 Range/Units 12:04 12:04 WBC (4.5-11.0) X10^3/uL RBC (4.5-5.9) X10^6/uL Hgb (13.5-17.5) g/dL Hct (41-53) % MCV (80-100) fL MCH (26-34) PG MCHC (30-36) % RDW (11.6-14.8) % Plt Count (150-400) X10^3/uL Neut % (Auto) (50-75) % Lymph % (Auto) (25-40) % [place] % (Auto) (3-14) % Eos % (Auto) (2-4) % Baso % (Auto) (0-2) % Neut # (Auto) (3753-3514) /uL Lymph # (Auto) (0265-6465) /uL [place] # (Auto) (0-900) /uL Eos # (Auto) (0-450) /uL Baso # (Auto) (0-100) /uL PT (10.1-12.7) SECONDS INR (0.9-1.3) APTT (26.4-36.2) SECONDS Sodium (137-145) mmol/L Potassium (3.4-5.1) mmol/L Chloride (98-107) mmol/L Carbon Dioxide (22-32) mmol/L BUN (9-20) mg/dL Creatinine (0.66-1.25) mg/dL Estimated GFR (>60) mL/min BUN/Creatinine Ratio (6-22) Glucose (70-100) mg/dL Lactate 0.9 (0.7-2.1) mmol/L Calcium (8.4-10.2) mg/dL Total Bilirubin (0.2-1.3) mg/dL AST (17-59) IU/L ALT (<50) IU/L Alkaline Phosphatase (38-126) U/L Total Protein (6.3-8.2) g/dL Albumin (3.5-5.0) g/dL Globulin (1.7-4.1) g/dL Albumin/Globulin Ratio (1.0-2.8) Lipase (23-300) U/L Procalcitonin 0.86 H (<0.5) ng/mL Imaging Data CT scan - abdomen/pelvis: Radiologist's Impression: [address] [address] [address] Scan Report Signed Patient: Sanjiv Torres [facility]#: [id number] : 1975Acct:[id number] Age/Sex: 44 / MDate of Service: 04/24/20 Loc: ED Accession Number: [id number] Procedure: CT abdomen pelvis w con Ordering Provider: Vadim Sarabia MD PROCEDURE: CT ABDOMEN PELVIS W CON INDICATIONS: IV contrast only/right lower quadrant pain TECHNIQUE: After the administration of intravenous contrast, 5 mm thick sections acquired from the diaphragm to the symphysis. 5 mm coronal and sagittal reformats were acquired. For radiation dose reduction, the following was used: automated exposure control, adjustment of mA and/or kV according to patient size. COMPARISON: [facility], CT, CT ABDOMEN PELVIS W CON, 09/04/2019, 13:21. FINDINGS: Image quality: Excellent. ABDOMEN: Lung bases: Lung bases are clear. Heart size is normal. Solid organs: Liver is normal in size . Hepatic steatosis is seen, no discrete [place] lesion. Gallbladder is within normal limits. Biliary system is non dilated. Pancreas enhances normally. Spleen is normal in size and enhancement. No adrenal nodules. Kidneys demonstrate normal size and enhancement, without hydronephrosis. Peritoneum and bowel: Stomach and small bowel loops are markedly distended with multiple air-fluid levels. Small bowel loop measures up to 4.9 cm in diameter abrupt caliber change in distal ileal loops within left lower quadrant abdomen best seen on axial image 74 through 76 and coronal images 24 through 26. Colon is decompressed. No gross peritoneal free air. There is suggestion of prior appendectomy with surgical clips seen in right lower quadrant abdomen. Nodes and vessels: No retroperitoneal or mesenteric adenopathy by size criteria. Aorta and inferior vena cava are normal in size. Miscellaneous: No ventral hernias. PELVIS: Genitourinary: Bladder wall thickness is normal. Miscellaneous: No inguinal hernias or adenopathy. Bones: No suspicious bony lesions. No vertebral body compression fractures. IMPRESSION: 1. Finding is suggestive of high-grade distal small bowel obstruction with transition point involving distal ileum in left lower quadrant as above. 2. No peritoneal free fluid or free air. Prior appendectomy. Dictated by: Joby Farrar M.D. on 04/24/2020 at 13:02 Approved by: oJby Farrar M.D. on 04/24/2020 at 13:10 Chest x-ray: Radiologist's Impression: [address] [address] XRay Report Signed Patient: Sanjiv Torres [facility]#: [id number] : 1975Acct:[id number] Age/Sex: 44 / MDate of Service: 04/24/20 Loc: PG29N-1 Accession Number: [id number] Procedure: XR chest 1V Ordering Provider: Christiano Marques MD PROCEDURE: XR CHEST 1V INDICATIONS: ng tube placed TECHNIQUE: One view of the chest was acquired. COMPARISON: None. FINDINGS: Surgical changes and devices: NG tube tip is below the left hemidiaphragm and is in the expected location of stomach lumen.. Lungs and pleura: Lungs are clear. No pleural effusions or pneumothorax. Mediastinum: Mediastinal contours appear normal. Heart size is normal. Bones and chest wall: Prominent air distended small bowel loops are seen suggestive of small bowel obstruction. No suspicious bony lesions. Overlying soft tissues appear unremarkable. IMPRESSION: NG tube tip is in the region of stomach lumen below the left hemidiaphragm. Dictated by: Joby Farrar M.D. on 04/24/2020 at 14:41 Approved by: Joby Farrar M.D. on 04/24/2020 at 14:41 ECG Data Attestation: I personally reviewed and interpreted this ECG as follows: Interpretation: Sinus rhythm no ST elevation or depression ventricular rate 87 Discharge Plan Departure Patient Disposition: Admitted As Inpatient Clinical Impression: Small bowel obstruction Discharge Date/Time: 04/24/20 14:10 Referrals: Aubrie Greene ARNP [Primary Care Provider] - Admit Date/Time: 04/24/20 14:08 Admit Provider: Christiano Marques
[2020-04-24] MEDS: MORPHINE 4 MG/ML INJ IV (12:47)
[2020-04-24] MEDS: ONDANSETRON 4 MG/2 ML INJ IV ×2 (12:47→19:02)
[2020-04-24 12:54] LABS: Lactate (Lactic Acid) 0.9 mmol/L (0.7-2.1)
[2020-04-24] MEDS: SODIUM CHLORIDE 0.9% 1,000 ML 1000 ML IV (12:57)
--- NOTE | 2020-04-24 13:00 | DI.CT.S_ITS ---
PROCEDURE: CT ABDOMEN PELVIS W CON INDICATIONS: IV contrast only/right lower quadrant pain TECHNIQUE: After the administration of intravenous contrast, 5 mm thick sections acquired from the diaphragm to the symphysis. 5 mm coronal and sagittal reformats were acquired. For radiation dose reduction, the following was used: automated exposure control, adjustment of mA and/or kV according to patient size. COMPARISON: [facility], CT, CT ABDOMEN PELVIS W CON, 09/04/2019, 13:21. FINDINGS: Image quality: Excellent. ABDOMEN: Lung bases: Lung bases are clear. Heart size is normal. Solid organs: Liver is normal in size . Hepatic steatosis is seen, no discrete Paddock lesion. Gallbladder is within normal limits. Biliary system is non dilated. Pancreas enhances normally. Spleen is normal in size and enhancement. No adrenal nodules. Kidneys demonstrate normal size and enhancement, without hydronephrosis. Peritoneum and bowel: Stomach and small bowel loops are markedly distended with multiple air-fluid levels. Small bowel loop measures up to 4.9 cm in diameter abrupt caliber change in distal ileal loops within left lower quadrant abdomen best seen on axial image 74 through 76 and coronal images 24 through 26. Colon is decompressed. No gross peritoneal free air. There is suggestion of prior appendectomy with surgical clips seen in right lower quadrant abdomen. Nodes and vessels: No retroperitoneal or mesenteric adenopathy by size criteria. Aorta and inferior vena cava are normal in size. Miscellaneous: No ventral hernias. PELVIS: Genitourinary: Bladder wall thickness is normal. Miscellaneous: No inguinal hernias or adenopathy. Bones: No suspicious bony lesions. No vertebral body compression fractures. IMPRESSION: 1. Finding is suggestive of high-grade distal small bowel obstruction with transition point involving distal ileum in left lower quadrant as above. 2. No peritoneal free fluid or free air. Prior appendectomy. Dictated by: Joby Farrar M.D. on 04/24/2020 at 13:02 Approved by: Joby Farrar M.D. on 04/24/2020 at 13:10
[2020-04-24 13:18] LABS: Procalcitonin 0.86 ng/mL (<0.5)
--- NOTE | 2020-04-24 14:12 | DI.RAD.S_ITS ---
PROCEDURE: XR CHEST 1V INDICATIONS: ng tube placed TECHNIQUE: One view of the chest was acquired. COMPARISON: None. FINDINGS: Surgical changes and devices: NG tube tip is below the left hemidiaphragm and is in the expected location of stomach lumen.. Lungs and pleura: Lungs are clear. No pleural effusions or pneumothorax. Mediastinum: Mediastinal contours appear normal. Heart size is normal. Bones and chest wall: Prominent air distended small bowel loops are seen suggestive of small bowel obstruction. No suspicious bony lesions. Overlying soft tissues appear unremarkable. IMPRESSION: NG tube tip is in the region of stomach lumen below the left hemidiaphragm. Dictated by: Joby Farrar M.D. on 04/24/2020 at 14:41 Approved by: Joby Farrar M.D. on 04/24/2020 at 14:41
--- NOTE | 2020-04-24 14:34 | DI.RAD.S_ITS ---
PROCEDURE: FL SMALL BOWEL FOLLOW THROUGH INDICATIONS: small bowel obstruction. Perform with gastrografin COMPARISON: [facility], CR, XR CHEST 1V, 04/24/2020, 14:15. [facility], CT, CT ABDOMEN PELVIS W CON, 04/24/2020, 12:42. FINDINGS: KUB: Multiple dilated small bowel loops are identified within the upper abdomen. There is relative paucity of stool within the colon. No organomegaly or suspicious calcifications are evident. A nasogastric tube is evident. Contrast is seen within the urinary bladder. Age-appropriate degenerative changes of the imaged spine are present. Small bowel: The immediate image obtained directly following the injection of the contrast material through the nasogastric tube into the stomach demonstrates the contrast to be contained within the fundus of the stomach. 1 hour following this initial injection, the contrast has only passed into the 2/3 portion of the duodenum and is not evident passing beyond this region. No extraluminal contrast is evident. IMPRESSION: Small-bowel obstruction. Contrast material is not seen passing beyond the duodenum after 1 hour following the injection of contrast into the stomach. Dictated by: Jeffy Huerta M.D. on 04/24/2020 at 16:17 Approved by: Jeffy Huerta M.D. on 04/24/2020 at 16:20
--- NOTE | 2020-04-24 14:45 | PC.NURSE ---
Day shift: Pt on AC unit at approx 1445 from ED. Covid test pending and precautions in place per protocal. Pt c/o RUQ pain of 4/10 after getting IV morphine in ED. Was 7/10 prior to that. NG tube patent and on low intermittent. Oriented to room and call light. Call light in reach and Pt is high fall risk due to NG tube and the morphine. Pt reports no recent falls. Pt agrees to not get OOB w/o help from staff.
[2020-04-24] MEDS: SODIUM CHLORIDE 0.9% 1,000 ML 100 ML IV (15:03)
--- NOTE | 2020-04-24 15:16 | P.HP_ITS ---
History of Present Illness History of Present Illness Date Patient Seen: 04/24/20 Time Patient Seen: 15:16 Chief complaint: lower right abd pain 6/10 x4 days Narrative: This is a 44-year-old male seen in evaluation for for small-bowel obstruction. 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 He recovered from the operation uneventfully and then to over the course of the last 2 days he developed nausea vomiting abdominal bloating. He present to the emergency room today afebrile vital signs within normal limits white blood cell count 7, normal lactate, procalcitonin 0.9. CT of the abdomen pelvis was performed that demonstrates a small-bowel obstruction with a transition point in the left lower quadrant no free air or free fluid. Medical history is significant for insulin dependent diabetes. Patient History Medical History Diabetes insipidus (Chronic ~2000) Surgical History History of appendectomy (Acute) Family & Social History Social History: household members family Safety & Behavioral: Feels Safe in Current Yes Environment Been Physically Hurt or No Threatened By a Person Tobacco & Substance use: Smoking Status Never smoker alcohol intake frequency holiday/special occasion Substance Use Type does not use Meds Home Medications and Allergies Home Medications Medication Instructions Recorded Confirmed Type insulin aspart U-100 100 unit/mL 5 - 10 unit SUBCUT TID 90 Days #30 12/21/19 Rx subcutaneous solution ml insulin glargine 100 unit/mL (3 30 unit SUBCUT DAILY 90 Days #27 ml 12/21/19 Rx mL) subcutaneous pen metformin 500 mg tablet 500 mg PO BID #180 tab 12/21/19 Rx simvastatin 10 mg tablet 10 mg PO BEDTIME #90 tab 12/21/19 Rx Allergies Allergy/AdvReac Type Severity Reaction Status Date / Time No Known Drug Allergies Allergy Verified 04/24/20 11:45 Review of Systems Review of Systems Narrative: A 10 point review of systems is negative except as noted in the HPI Exam Vital Signs (past 8 hours): - 04/24/20 11:35 04/24/20 13:01 04/24/20 13:30 Temperature 97.4 F L Pulse Rate 102 H 86 91 H Respiratory Rate 14 14 19 Blood Pressure 140/87 Pulse Oximetry 97 94 95 04/24/20 13:32 04/24/20 14:00 04/24/20 14:33 Temperature 97.5 F L Pulse Rate 90 86 93 H Respiratory Rate 17 20 16 Blood Pressure 124/78 119/72 123/80 Pulse Oximetry 97 96 95 Oxygen Delivery Method Room Air Oxygen Flow Rate 0 Narrative Exam Narrative: General-no acute distress, well nourished adult male HEENT-moist mucous membranes, no scleral icterus Neck-supple, no lymphadenopathy Chest- non labored respirations, clear to auscultation bilaterally Cardiac-regular rate no peripheral edema Abdomen-distended, RLQ peritonitis Extremities-warm, well perfused Neurological-alert and oriented, no focal deficits Objective Labs Result Diagrams: 04/24/20 12:04 04/24/20 12:04 Labs: Laboratory Results - last 24 hr 04/24/20 04/24/20 04/24/20 12:04 12:04 12:04 WBC 7.4 RBC 4.85 Hgb 15.0 Hct 44.7 MCV 92.1 MCH 31.0 MCHC 33.6 RDW 14.1 Plt Count 163 Neut % (Auto) 76.5 H Lymph % (Auto) 10.8 L Graves % (Auto) 8.4 Eos % (Auto) 3.9 Baso % (Auto) 0.4 Neut # (Auto) 5600 Lymph # (Auto) 800 L Graves # (Auto) 600 Eos # (Auto) 300 Baso # (Auto) 0 PT 12.0 INR 1.0 APTT 33 Sodium 137 Potassium 4.1 Chloride 99 Carbon Dioxide 20 L BUN 11 Creatinine 0.73 Estimated GFR > 60.0 BUN/Creatinine Ratio 15.1 Glucose 297 H Lactate Calcium 9.6 Total Bilirubin 1.1 AST 12 L ALT 7 Alkaline Phosphatase 74 Total Protein 6.9 Albumin 4.0 Globulin 2.9 Albumin/Globulin Ratio 1.4 Lipase < 10 L Procalcitonin 04/24/20 04/24/20 12:04 12:04 WBC RBC Hgb Hct MCV MCH MCHC RDW Plt Count Neut % (Auto) Lymph % (Auto) Graves % (Auto) Eos % (Auto) Baso % (Auto) Neut # (Auto) Lymph # (Auto) Graves # (Auto) Eos # (Auto) Baso # (Auto) PT INR APTT Sodium Potassium Chloride Carbon Dioxide BUN Creatinine Estimated GFR BUN/Creatinine Ratio Glucose Lactate 0.9 Calcium Total Bilirubin AST ALT Alkaline Phosphatase Total Protein Albumin Globulin Albumin/Globulin Ratio Lipase Procalcitonin 0.86 H Assessment & Plan Assessment and plan (1) Small bowel obstruction: Status: Acute Assessment & Plan narrative: 44-year-old man with insulin-dependent diabetes and prior abdominal surgery presents with an acute small bowel obstruction. His CT shows a high grade obsturction with transition point, laboratory studies are unremarkable but he has RLQ peritonitis which is concerning for possible comprom ise of his bowel. He requires an exploratory laparotomy, possible bowel resection. I discussed this with the patient and we discussed the operative risks including bleeding, infection, anastomic leak damage to surrounding structures. His questions have been answered and he is in agreement with this plan.
[2020-04-24 15:37] LABS: COVID19 -Nasal RAPID Negative (Negative)
[2020-04-24] MEDS: LACTATED RINGERS 1,000 ML 42 ML IV ×2 (16:39→18:03)
[2020-04-24] MEDS: PIPERACILLIN-TAZO 3.375 GM/50 ML FROZ.PIGGY IV (16:50)
--- NOTE | 2020-04-24 17:19 | SUR.OPER ---
Supine on padded OR bed, head on pillow, arms secured on padded arm boards at <90 degrees abduction, legs uncrossed, safety belt at thigh, tape over blanket over lower legs.
[2020-04-24] MEDS: PANTOPRAZOLE 40 MG VIAL 20 MG IV ×2 (17:26)
--- NOTE | 2020-04-24 18:36 | PM.OP.1 ---
Operative Date/Time/Diagnoses Date of procedure: 04/24/20 Time of procedure: 18:37 Pre-op diagnosis: Small-bowel obstruction Post-op diagnosis: same Procedure & Clinicians Procedure: Exploratory laparotomy, lysis of adhesions Same procedure as scheduled: Yes Indications: 44-year-old male with a previous open appendectomy presents with a small-bowel obstruction and focal peritonitis in the right lower quadrant. Surgeon: Christiano Marques Click Yes if Unassisted: Yes Anesthesia Type: General Operative Notes Findings: Viable small bowel, multiple adhesive bands within the pelvis and right lower quadrant murky intra-abdominal fluid Specimen(s): none sent Estimated Blood Loss (mL): 20 Procedure in detail: Patient was brought to the operating room placed supine on the table. Bilateral lower extremity compression devices were applied. 3.375 g of Zosyn was infused. General anesthesia was induced he was intubated with an endotracheal tube. He was prepped draped in sterile fashion. Time-out was performed. Made a midline laparotomy incision and subcutaneous tissues were divided fascia was grasped elevated sharply incised the abdomen was entered atraumatically. Upon entering the abdomen there was an extremely dilated small bowel as well as murky fluid within the pelvis. Small bowel was eviscerated. The small bowel was then run proximal to distal. Within the pelvis and the right lower quadrant there were multiple adhesions involving the small bowel and the cecum that were sharply lysed and this was the cause of his small-bowel obstruction. The small bowel was then run in its entirety from the terminal ileum to the ligament of Treitz. The contents of the small bowel were milked proximally and emptied via the nasogastric tube which was palpable within the stomach. Inspection of the small bowel demonstrated viability there were spots of fibrinous debris as well as serosal abrasions but no colby serosal tears. The bowel was returned to the abdomen which was copiously irrigated with saline. The fascia was then closed in a running fashion from above and below using 1. PDS the subcutaneous tissue reapproximated using 3 0 Vicryl and the skin closed with khai. Patient emerged from anesthesia was extubated transferred to recovery room in stable condition. Complications: none Post-operative Condition: stable Disposition: Acute Care
[2020-04-24] MEDS: MEPERIDINE 50 MG/ML INJ 12.5 MG IV (18:50)
[2020-04-24] MEDS: HYDROMORPHONE 1 MG INJ 0.5 MG IV ×2 (20:05→21:46)
[2020-04-24] MEDS: INSULIN ASPART 100 UNIT/ML INSULN PEN SUBCUT (21:38)
[2020-04-25] VITALS (13 sets, daily range): BP systolic 129–165; BP diastolic 81–95; PULSE 98–109; RESP 14–20; TEMP 36.2–36.9; O2SAT 92–97
[2020-04-25] MEDS: HYDROMORPHONE 0.5 MG INJ IV ×5 (00:07→21:35)
[2020-04-25] MEDS: SODIUM CHLORIDE 0.9% 1,000 ML 100 ML IV (01:25)
[2020-04-25 05:20] LABS: Add Manual Diff / Slide Review NO; Basophils Absolute Auto 0 /uL (0-100); Basophils Percent Auto 0.4 % (0-2); Eosinophils Absolute Auto 0 /uL (0-450); Eosinophils Percent Auto 0.5 % (2-4); Hematocrit 46.7 % (41-53); Hemoglobin 15.5 g/dL (13.5-17.5); Lymphocytes Absolute Auto 600 /uL (1100-4500); Lymphocytes Percent Auto 10.2 % (25-40); Mean Corpuscular HGB Conc 33.1 % (30-36); Mean Corpuscular Hemoglobin 30.9 PG (26-34); Mean Corpuscular Volume 93.3 fL (80-100); Monocytes Absolute Auto 800 /uL (0-900); Monocytes Percent Auto 12.6 % (3-14); Neutrophils Absolute Auto 4700 /uL (1500-7000); Neutrophils Percent Auto 76.3 % (50-75); Platelet Count 183 X10^3/uL (150-400); Red Blood Cell Count 5.01 X10^6/uL (4.5-5.9); Red Cell Distribution Width 14.5 % (11.6-14.8); White Blood Cell Count 6.1 X10^3/uL (4.5-11.0)
[2020-04-25 05:26] LABS: BUN Creatinine Ratio 14.3 (6-22); Blood Urea Nitrogen 12 mg/dL (9-20); Calcium 8.6 mg/dL (8.4-10.2); Carbon Dioxide 21 mmol/L (22-32); Chloride 107 mmol/L (98-107); Estimated Glomerular Filt Rate > 60.0 mL/min (>60); Glucose 228 mg/dL (70-100); HEMOLYSIS < 15 (0-50); Magnesium 1.7 mg/dL (1.6-2.3); Phosphorous 4.6 mg/dL (2.5-4.5); Potassium 4.6 mmol/L (3.4-5.1); Sodium 140 mmol/L (137-145)
[2020-04-25] MEDS: ONDANSETRON 4 MG/2 ML INJ IV (05:51)
--- NOTE | 2020-04-25 07:40 | PC.NURSE ---
Day shift: Refused SCD's. Told Pt the help keep blood clots away. He is doing foot waves. He still refused them. Call light in reach. Agrees to not get OOB w/o help from staff.
--- NOTE | 2020-04-25 07:54 | PC.NURSE ---
Day shift: Per Dr Shelli latif for Pt to have sips of water and ice chips. Sugarfree popsicle salomon as well.
--- NOTE | 2020-04-25 08:02 | PM.PNPO.1 ---
Subjective Subjective Date Patient Seen: 04/25/20 Time Patient Seen: 08:02 Interval history: No acute overnight events. Right lower quadrant pain significantly less now postoperatively that was preop. Drained approximately 3 L of bilious output in the operating room last night. Exam Vital Signs (past 8 hours): - 04/25/20 03:52 04/25/20 04:31 04/25/20 07:36 Temperature 97.7 F Pulse Rate 109 H Respiratory Rate 16 Blood Pressure 129/82 Pulse Oximetry 95 97 96 04/25/20 07:58 Temperature 97.2 F L Pulse Rate 108 H Respiratory Rate 20 Blood Pressure 165/95 H Pulse Oximetry 96 Oxygen Delivery Method Room Air Oxygen Flow Rate 1 Narrative Exam Narrative: General adult male alert oriented no acute distress Abdomen moderately distended minimally tender right lower quadrant now dressing clean dry intact to midline Objective Labs Result Diagrams: 04/25/20 04:55 04/25/20 04:55 Labs: Laboratory Results - last 24 hr 04/24/20 04/24/20 04/24/20 12:04 12:04 12:04 WBC 7.4 RBC 4.85 Hgb 15.0 Hct 44.7 MCV 92.1 MCH 31.0 MCHC 33.6 RDW 14.1 Plt Count 163 Neut % (Auto) 76.5 H Lymph % (Auto) 10.8 L Victoria % (Auto) 8.4 Eos % (Auto) 3.9 Baso % (Auto) 0.4 Neut # (Auto) 5600 Lymph # (Auto) 800 L Victoria # (Auto) 600 Eos # (Auto) 300 Baso # (Auto) 0 PT 12.0 INR 1.0 APTT 33 Sodium 137 Potassium 4.1 Chloride 99 Carbon Dioxide 20 L BUN 11 Creatinine 0.73 Estimated GFR > 60.0 BUN/Creatinine Ratio 15.1 Glucose 297 H Lactate Calcium 9.6 Phosphorus Magnesium Total Bilirubin 1.1 AST 12 L ALT 7 Alkaline Phosphatase 74 Total Protein 6.9 Albumin 4.0 Globulin 2.9 Albumin/Globulin Ratio 1.4 Lipase < 10 L Procalcitonin COVID-19 PCR 04/24/20 04/24/20 04/24/20 12:04 12:04 14:33 WBC RBC Hgb Hct MCV MCH MCHC RDW Plt Count Neut % (Auto) Lymph % (Auto) Victoria % (Auto) Eos % (Auto) Baso % (Auto) Neut # (Auto) Lymph # (Auto) Victoria # (Auto) Eos # (Auto) Baso # (Auto) PT INR APTT Sodium Potassium Chloride Carbon Dioxide BUN Creatinine Estimated GFR BUN/Creatinine Ratio Glucose Lactate 0.9 Calcium Phosphorus Magnesium Total Bilirubin AST ALT Alkaline Phosphatase Total Protein Albumin Globulin Albumin/Globulin Ratio Lipase Procalcitonin 0.86 H COVID-19 PCR Negative 04/25/20 04/25/20 04:55 04:55 WBC 6.1 RBC 5.01 Hgb 15.5 Hct 46.7 MCV 93.3 MCH 30.9 MCHC 33.1 RDW 14.5 Plt Count 183 Neut % (Auto) 76.3 H Lymph % (Auto) 10.2 L Victoria % (Auto) 12.6 Eos % (Auto) 0.5 L Baso % (Auto) 0.4 Neut # (Auto) 4700 Lymph # (Auto) 600 L Victoria # (Auto) 800 Eos # (Auto) 0 Baso # (Auto) 0 PT INR APTT Sodium 140 Potassium 4.6 Chloride 107 Carbon Dioxide 21 L BUN 12 Creatinine 0.84 Estimated GFR > 60.0 BUN/Creatinine Ratio 14.3 Glucose 228 H Lactate Calcium 8.6 Phosphorus 4.6 H Magnesium 1.7 Total Bilirubin AST ALT Alkaline Phosphatase Total Protein Albumin Globulin Albumin/Globulin Ratio Lipase Procalcitonin COVID-19 PCR Assessment & Plan Post-op Postoperative Procedures: Procedures Operation Date: 04/24/20 17:00 Actual Procedures Side Surgeon p Exploratory Laparotomy GEN, LYSIS OF ADHESIONS Not Applicable Christiano Marques MD Postoperative plan narrative: 44-year-old man with diabetes and prior abdominal surgery postoperative day 1 status post exploratory laparotomy and lysis of adhesions for small-bowel obstruction, small bowel was viable. He is making an appropriate recovery # small-bowel obstruction-continue nasogastric tube to intermittent low wall suction. Okay for ice chips and sips of water as long as tube is functioning. Await return of bowel function # SCDs and Lovenox for VT prophylaxis # out of bed ambulate PT ordered # insulin dependent diabetes-continue insulin sliding scale as ordered Time Spent With Patient Time with patient: 25 - 35 minutes Quality VTE Deep Vein Thrombosis/Pulmonary Embolism Present on Admission: No
[2020-04-25] MEDS: SODIUM CHLORIDE 0.9% 1,000 ML 150 ML IV ×3 (08:33→21:40)
[2020-04-25] MEDS: ENOXAPARIN 40 MG/0.4 ML SYRINGE SUBCUT (08:35)
[2020-04-25] MEDS: INSULIN ASPART 100 UNIT/ML INSULN PEN SUBCUT ×3 (08:55→21:34)
--- NOTE | 2020-04-25 12:48 | PT.IIE ---
Current Diagnoses Unspecified intestinal obstruction, unspecified as to partial versus complete obstruction (04/24/20) Surgery Performed Operation Date: 04/24/20 17:00 Actual Procedures p Exploratory Laparotomy GEN, LYSIS OF ADHESIONS(Not Applicable) - Christiano Marques MD Surgical History (Last Reviewed 04/24/20 @ 15:22 by Christiano Marques MD) History of appendectomy (Acute) Medical History (Last Reviewed 04/24/20 @ 15:22 by Christiano Marques MD) Diabetes insipidus (Chronic ~2000) Physical Therapy Inpatient Evaluation/Re-Eval M1 PT/OT-IP Prior Functional Status Start: 04/25/20 09:51 Freq: NEEDED Status: Active Protocol: Document 04/25/20 11:25 HH (Rec: 04/25/20 12:48 [id number]) Medical Review Prior Functional Status Medical History Reviewed Yes Diet/Fluid Consistency NPO Communication no deficits noted. able to make needs known Mobility and Gait independent for all mobility without AD. Pt workout twice a week. Activities of Daily Living and IADL's independent for all ADLs and IADLs without AD. Prior Functional Level (Other details) pt is diabetic and insulin dependent. He stated he is very well managed and only hospitalized once for his diabetes for the past 21 years . Social History Household Members family Living Arrangements Apartment/Condo Number of Floors (Floors) One Floor Number of Stairs To Enter/Railing? apt on 2nd level with 15 steps to go up, L railing and a landing in between Home Environment Standard Height Toilet,Tub/ Shower Employment Status Hired Hand Temporary Additional Social History Comment Pt lives with his sister and niece in an apt. He has 3 other sisters who live out of state. Pt had a epiploica removal 8 months ago. 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 M2 PT-IP Current Condition Start: 04/25/20 09:51 Freq: NEEDED Status: Active Protocol: Document 04/25/20 11:25 HH (Rec: 04/25/20 12:48 [id number]) Physical Therapy Current Condition Current Condition Evaluation Date 04/25/20 Treatment Diagnosis Small bowel obstruction, s/p Exploratory laparotomy, weakness Onset Date 04/24/20 Precautions Abdominal Surgery Precautions Log Roll,Lifting Restrictions, Gait Belt above Incisional Area Weight Bearing Status Weight Bearing Status Full Weight Bearing M3 PT-IP Subjective Start: 04/25/20 09:51 Freq: NEEDED Status: Active Protocol: Document 04/25/20 11:25 (Rec: 04/25/20 12:48 [id number]) Subjective Physical Therapy Visit Type Type Initial Evaluation Visit Start Time 10:50 Visit Stop Time 11:25 Total Visit Minutes 35 Notes NG tube and IV in place. Number of IRON CARRIER Visits 0 Physical Therapy Visit Comments Patient Comments I feel better today Patient Goals to return home once he is medically stable. Therapy Pain Assessment Pain When Pain Assessed During Mobility Pain Present Pain Present Pain Reported Location Right Lower Abdomen Intensity 3 Scale Used Numeric (0 - 10) Description Aching Pain Management Techniques Timing of Activity with Medications M4 PT-IP Mobility and Gait Start: 04/25/20 09:51 Freq: NEEDED Status: Active Protocol: Document 04/25/20 11:25 HH (Rec: 04/25/20 12:48 [id number]) PT-Bed Mobility Assessment Rolling Type of Rolling Roll to Left Level of Assist Standby Assistance Supine to Sit Supine to Sit Standby Assistance Scooting Scooting to Edge of Bed Standby Assistance PT-Transfer Assessment Sit to and From Stand Sit to and from Stand Standby Assistance Equipment Transfer Assistive Device None Orthotic/Prosthetic Devices or Brace: No Transfers Transfer Destination Bed,Chair Transfer Technique Stand Step Pivot Transfer Ability Level of Assist Standby Assistance Comments Mobility Comments Pt was in bed upon PT arrival. RN clamped his NG tube for mobility. Pt stated pain 3/10 but feeling better today. He agreed to mobilize with PT. Educated pt to use log roll for OOB and pillow for pain management during mobility. BP at 129/84 HR 94 in supine. Pt initially completed log roll to left and SL to sit with SBA without railings. He then stood up without using UEs and able to amb immediately by holding onto IV pole. Pt then amb the entire AC unit floor with SBA. He appeared to be very steady with good safety awareness. He denied any increased discomfort and pain stayed at 3/10. Pt returned to bedside chair safely after. BP 146/88 HR 111 Call light placed within reach. Gait Assessment Gait Gait Assistance Required: Standby Assistance Distance (Feet) 420 Able to Maintain Weight Bearing Status Yes During Gait Assistive Devices Assistive Device None Orthotic/Prosthetic Devices or Brace: No Factors Limiting Gait Function Factors Limiting Gait Function Decreased Activity Tolerance, Decreased Strength Comments Gait Comments see mobility comments. Stair Climbing Assessment Comments Stair Climbing Comments did not assess. PT-Balance Assessment Sitting Balance and Reactions Static Sitting Balance Ability Normal Dynamic Sitting Balance Ability Normal Standing Balance and Reactions Static Standing Balance Ability Normal Dynamic Standing Balance Ability Normal Device Used none M5 PT-IP Objective Assessments Start: 04/25/20 09:51 Freq: NEEDED Status: Active Protocol: Document 04/25/20 11:25 (Rec: 04/25/20 12:48 [id number]) Orientation Orientation/Cognition Level of Alertness Alert Orientation Name,Age,Birthday,Month,Date, Year,Day of Week,Place, Situation Language Function Ability No Deficits Noted Safety Awareness Understands Safety Issues Memory Description No Deficits Noted Gross Range of Motion Upper Extremity ROM Assessment Within Functional Limits Lower Extremity ROM Assessment Within Functional Limits Strength Upper Extremity Strength Assessment Within Functional Limits Lower Extremity Strength Assessment Within Functional Limits Coordination Assessment Gross Coordination Gross Coordination WNL Sensation Assessment Sensation Gross Sensation WNL Muscle Tone Muscle Tone WNL Yes M6 PT-IP Treatment Start: 04/25/20 09:51 Freq: NEEDED Status: Active Protocol: Document 04/25/20 11:25 (Rec: 04/25/20 12:48 [id number]) Physical Therapy Treatment Education Education Provided Precautions,Safety M7 PT-IP Assessment and Plan Start: 04/25/20 09:51 Freq: NEEDED Status: Active Protocol: Document 04/25/20 11:25 (Rec: 04/25/20 12:48 [id number]) PT Summary Assessment and Plan Potential Rehabilitation Potential Excellent Status of Condition at Evaluation Evolving Summary Impairments Activity Tolerance Assessment Summary This is a low complexity evaluation for this 44 yo male admitted to for small bowel obstruction. Pt had a exploratory laparotomy last night and has NG tube in place upon PT arrival. Pt's PLOF is very active and completely independent for mobility. He was SBA for all mobility for this assessment as well. He was able to amb the entire AC unit with a steady gait. His BP and HR considerably elevated after amb and will cont monitor. Pt should be able to return home once he is medically stable. Goals Bed Mobility Goal Independent Transfer Goal Independent Gait Goal Independent Gait Distance 500 Other Goals climb 15 steps with L rail I Days to Meet Goals 2 Frequency of Treatment Frequency Of Treatment Once a Day Treatment Plan Physical Therapy Treatment Plan Bed Mobility Training,Transfer Training,Gait Training, Therapeutic Exercise,Post Op Education Other Recommendations and Next Treatment maria l cutler Focus review post op precautions stair climbing Recommendations To Nursing Amount of Assist Needed Standby Assistance Discharge Recommendations PT Discharge Recommendations Home Transportation Needs at Discharge Private Vehicle
--- NOTE | 2020-04-25 16:25 | CM.DANOTE ---
DCP: assessment: Note. Case received and discussed in Team Rounds: 46 year old male was admitted yesterday afternoon to care of [facility]: Dr. Marques took him for surgery last evening: small bowel obstruction with peritonitis: exploratory laparotomy with EZEQUIEL. Payer: [employer] PCP: Aubrie Greene Caseload triage dictates need to defer rest of assessment and d/c planning process to DCP team on tomorrow.
[2020-04-26] VITALS (11 sets, daily range): BP systolic 127–142; BP diastolic 71–88; PULSE 93–118; RESP 16–18; TEMP 36.7–37.3; O2SAT 95–98
[2020-04-26] MEDS: INSULIN ASPART 100 UNIT/ML INSULN PEN SUBCUT ×4 (02:40→22:05)
[2020-04-26] MEDS: HYDROMORPHONE 0.5 MG INJ IV (03:57)
[2020-04-26] MEDS: SODIUM CHLORIDE 0.9% 1,000 ML 150 ML IV ×3 (04:35→19:01)
[2020-04-26 05:23] LABS: Add Manual Diff / Slide Review NO; Basophils Absolute Auto 0 /uL (0-100); Basophils Percent Auto 0.6 % (0-2); Eosinophils Absolute Auto 300 /uL (0-450); Eosinophils Percent Auto 4.3 % (2-4); Hematocrit 40.8 % (41-53); Hemoglobin 13.5 g/dL (13.5-17.5); Lymphocytes Absolute Auto 900 /uL (1100-4500); Lymphocytes Percent Auto 12.1 % (25-40); Mean Corpuscular Volume 94.1 fL (80-100); Monocytes Absolute Auto 900 /uL (0-900); Monocytes Percent Auto 11.8 % (3-14); Neutrophils Absolute Auto 5100 /uL (1500-7000); Neutrophils Percent Auto 71.2 % (50-75); Platelet Count 197 X10^3/uL (150-400); Red Blood Cell Count 4.34 X10^6/uL (4.5-5.9); Red Cell Distribution Width 14.9 % (11.6-14.8); White Blood Cell Count 7.2 X10^3/uL (4.5-11.0)
[2020-04-26 05:39] LABS: BUN Creatinine Ratio 16.4 (6-22); Blood Urea Nitrogen 11 mg/dL (9-20); Calcium 8.7 mg/dL (8.4-10.2); Carbon Dioxide 18 mmol/L (22-32); Chloride 112 mmol/L (98-107); Estimated Glomerular Filt Rate > 60.0 mL/min (>60); Glucose 256 mg/dL (70-100); HEMOLYSIS < 15 (0-50); Magnesium 1.9 mg/dL (1.6-2.3); Phosphorous 2.8 mg/dL (2.5-4.5); Potassium 4.3 mmol/L (3.4-5.1); Sodium 142 mmol/L (137-145)
[2020-04-26] MEDS: PANTOPRAZOLE 40 MG VIAL 20 MG IV (08:29)
[2020-04-26] MEDS: ENOXAPARIN 40 MG/0.4 ML SYRINGE SUBCUT (08:30)
--- NOTE | 2020-04-26 09:11 | CM.DANOTE ---
DCP: Case received, EMR reviewed and met with patient. Introduced self and role. Was able to obtain some information from patient regarding his baseline activity level, health information and living situation. DCP assessment completed with information currently available. Patient is a 44 year old male who admitted on 04/24 to the care of the surgical team. PCP: Aubrie GARDINER. Payer: confirmed: [facility]. Patient came to the hospital via family vehicle secondary to abdominal discomfort in his right quadrant. Patient was diagnosed with small bowel obstruction. Patient had exploratory laparotomy yesterday, and currently has NG tube. Patient also had appendectomy approximately 8 months ago. Met with patient in his room. He was laying in bed. Confirmed that patient is independent at baseline, and resides here in [place]. He mentioned that he is currently living with his sister, Angela Torres. He stated that she will be able to assist him when he goes home for any needs. P: DCP to continue to follow and will be available for any resources needed. Plan is for home when he is medically stable. Merari Black RN/[employer]
--- NOTE | 2020-04-26 11:05 | PT.IPTN ---
Current Diagnoses Unspecified intestinal obstruction, unspecified as to partial versus complete obstruction (04/24/20) Surgery Performed Operation Date: 04/24/20 17:00 Actual Procedures p Exploratory Laparotomy GEN, LYSIS OF ADHESIONS(Not Applicable) - Christiano Marques MD Physical Therapy Treatment Note M2 PT-IP Current Condition Start: 04/25/20 09:51 Freq: NEEDED Status: Active Protocol: Document 04/25/20 11:25 HH (Rec: 04/25/20 12:48 HH [id number]) Physical Therapy Current Condition Current Condition Evaluation Date 04/25/20 Treatment Diagnosis Small bowel obstruction, s/p Exploratory laparotomy, weakness Onset Date 04/24/20 Precautions Abdominal Surgery Precautions Log Roll,Lifting Restrictions, Gait Belt above Incisional Area Weight Bearing Status Weight Bearing Status Full Weight Bearing M3 PT-IP Subjective Start: 04/25/20 09:51 Freq: NEEDED Status: Active Protocol: Document 04/26/20 11:05 AB (Rec: 04/26/20 12:16 AB [email or web address]) Subjective Physical Therapy Visit Type Type Treatment Note Visit Start Time 11:05 Visit Stop Time 11:22 Total Visit Minutes 17 Number of PANTOGRAPH OPERATOR Visits 0 Physical Therapy Visit Comments Patient Comments agreeable to do PT Therapy Pain Assessment Pain When Pain Assessed At Rest Pain Present Pain Present Pain Reported Location Right Lower Abdomen Intensity 2 Scale Used Numeric (0 - 10) Pain Management Techniques Re-positioning,Timing of Activity with Medications M4 PT-IP Mobility and Gait Start: 04/25/20 09:51 Freq: NEEDED Status: Active Protocol: Document 04/26/20 11:05 AB (Rec: 04/26/20 12:16 AB [id number]) PT-Bed Mobility Assessment Rolling Type of Rolling Log Rolling Level of Assist Independent Supine to Sit Supine to Sit Independent Scooting Scooting to Edge of Bed Independent PT-Transfer Assessment Sit to and From Stand Sit to and from Stand Independent,1 Person Assistance,Use of Upper Extremities Equipment Transfer Assistive Device Gait Belt Orthotic/Prosthetic Devices or Brace: No Transfers Transfer Destination Chair Transfer Technique ambulated without AD Transfer Ability Level of Assist Standby Assistance Comments Mobility Comments completed log roll bed mobility independent. ambulated towards the stairs ~ 250 ft without AD SBA for safety. pt with occasionally c/o nausea and stated that it is due to NG tube gaging his throat. pt completed up/down steps using L rail ascending SBA. ambulated back to his room. agreed to sit up on chair. positioned in chair. call light and table placed within reach. Gait Assessment Gait Gait Assistance Required: Standby Assistance Distance (Feet) 250 Able to Maintain Weight Bearing Status Yes During Gait Assistive Devices Assistive Device None,Gait Belt Factors Limiting Gait Function Factors Limiting Gait Function Pain Stair Climbing Assessment Evaluation Level of Assist On Stairs Standby Assistance Devices Stair Climbing Assistive Devices Left Railing Technique/Endurance Stair Climbing Direction Ascend and Descend Stair Climbing Technique Step to Step Number of Steps Climbed 3 Stair Climbing Set # Repetitions (reps) 5 M5 PT-IP Objective Assessments Start: 04/25/20 09:51 Freq: NEEDED Status: Active Protocol: Document 04/25/20 11:25 HH (Rec: 04/25/20 12:48 HH [id number]) Orientation Orientation/Cognition Level of Alertness Alert Orientation Name,Age,Birthday,Month,Date, Year,Day of Week,Place, Situation Language Function Ability No Deficits Noted Safety Awareness Understands Safety Issues Memory Description No Deficits Noted Gross Range of Motion Upper Extremity ROM Assessment Within Functional Limits Lower Extremity ROM Assessment Within Functional Limits Strength Upper Extremity Strength Assessment Within Functional Limits Lower Extremity Strength Assessment Within Functional Limits Coordination Assessment Gross Coordination Gross Coordination WNL Sensation Assessment Sensation Gross Sensation WNL Muscle Tone Muscle Tone WNL Yes M6 PT-IP Treatment Start: 04/25/20 09:51 Freq: NEEDED Status: Active Protocol: Document 04/26/20 11:05 AB (Rec: 04/26/20 12:16 AB [email or web address]) Physical Therapy Treatment Education Education Provided Precautions,Safety M7 PT-IP Assessment and Plan Start: 04/25/20 09:51 Freq: NEEDED Status: Active Protocol: Document 04/26/20 11:05 AB (Rec: 04/26/20 12:16 AB [email or web address]) PT Summary Assessment and Plan Potential Rehabilitation Potential Excellent Summary Impairments Pain,Gait,Activity Tolerance Progress Towards Goals Progressing Toward Goals Assessment Summary pt is doing well with mobility and able to ambulate without AD SBA for safety due to occasionally c/o nausea. pt is able to do bed mobility independently and transfers and has no LOB during ambulation and also able to complete stairs using one rail . informed pt regarding level of mobility and that no PT intervention is indicated at this time and pt agreed. pt agreed to ambulate with nurses as much as possible. pt will have family at home to assist him if needed. Goals Bed Mobility Goal Independent Transfer Goal Independent Gait Goal Independent Gait Distance 500 Other Goals climb 15 steps with L rail I Days to Meet Goals 2 Frequency of Treatment Frequency Of Treatment Discharge Treatment Plan Physical Therapy Treatment Plan Bed Mobility Training,Transfer Training,Gait Training, Therapeutic Exercise,Post Op Education Other Recommendations and Next Treatment [facility] vitals Focus review post op precautions stair climbing Recommendations To Nursing Amount of Assist Needed Standby Assistance Discharge Recommendations PT Discharge Recommendations Home Transportation Needs at Discharge Private Vehicle
--- NOTE | 2020-04-26 11:52 | PM.PNPO.1 ---
Subjective Subjective Date Patient Seen: 04/26/20 Time Patient Seen: 11:53 Interval history: the patient feels better. NG is causing him to gag and cough. When he does that his abdomen hurts. Otherwise it is not very painful. He is passing some flatus. Exam Vital Signs (past 8 hours): - 04/26/20 04:00 04/26/20 05:00 04/26/20 08:00 Temperature 98.6 F 99.1 F Pulse Rate 103 H 101 H Respiratory Rate 17 16 Blood Pressure 137/72 136/88 Pulse Oximetry 95 98 96 Oxygen Delivery Method Room Air Oxygen Flow Rate 0 Narrative Exam Narrative: Cooperative in no apparent distress. Lungs are clear to auscultation. Heart regular rate and rhythm without murmur gallop. Abdomen is mildly protuberant soft. The incision is intact without cellulitis. Objective Labs Result Diagrams: 04/26/20 04:55 04/26/20 04:55 Labs: Laboratory Results - last 24 hr 04/26/20 04/26/20 04:55 04:55 WBC 7.2 RBC 4.34 L Hgb 13.5 Hct 40.8 L MCV 94.1 MCH 31.0 MCHC 33.0 RDW 14.9 H Plt Count 197 Neut % (Auto) 71.2 Lymph % (Auto) 12.1 L Childress % (Auto) 11.8 Eos % (Auto) 4.3 H Baso % (Auto) 0.6 Neut # (Auto) 5100 Lymph # (Auto) 900 L Childress # (Auto) 900 Eos # (Auto) 300 Baso # (Auto) 0 Sodium 142 Potassium 4.3 Chloride 112 H Carbon Dioxide 18 L BUN 11 Creatinine 0.67 Estimated GFR > 60.0 BUN/Creatinine Ratio 16.4 Glucose 256 H Calcium 8.7 Phosphorus 2.8 D Magnesium 1.9 Assessment & Plan Post-op Postoperative Procedures: Procedures Operation Date: 04/24/20 17:00 Actual Procedures Side Surgeon p Exploratory Laparotomy GEN, LYSIS OF ADHESIONS Not Applicable Christiano Marques MD Postoperative status: doing well Postoperative status narrative: Sugars have been elevated and he says that his sugars to get out of whack when he is sick. Postoperative plan narrative: I have adjusted his insulin sliding scale as and started him on a long-acting insulin as well. Will keep him NPO. May be able start him back on a diet tomorrow. Quality VTE Deep Vein Thrombosis/Pulmonary Embolism Present on Admission: No
[2020-04-26] MEDS: ONDANSETRON 4 MG/2 ML INJ IV (14:47)
[2020-04-26] MEDS: INSULIN GLARGINE 100 UNIT/ML 3ML PEN 10 UNIT SUBCUT (22:06)
[2020-04-27] VITALS (11 sets, daily range): BP systolic 130–147; BP diastolic 74–82; PULSE 78–89; RESP 16–20; TEMP 36.6–36.8; O2SAT 96–99
[2020-04-27] MEDS: SODIUM CHLORIDE 0.9% 1,000 ML 150 ML IV ×4 (00:23→20:18)
[2020-04-27] MEDS: INSULIN ASPART 100 UNIT/ML INSULN PEN SUBCUT ×6 (03:00→21:36)
[2020-04-27 05:05] LABS: Add Manual Diff / Slide Review NO; Basophils Absolute Auto 0 /uL (0-100); Basophils Percent Auto 0.6 % (0-2); Eosinophils Absolute Auto 100 /uL (0-450); Eosinophils Percent Auto 2.3 % (2-4); Hemoglobin 12.4 g/dL (13.5-17.5); Lymphocytes Absolute Auto 800 /uL (1100-4500); Mean Corpuscular HGB Conc 32.7 % (30-36); Mean Corpuscular Hemoglobin 30.8 PG (26-34); Mean Corpuscular Volume 94.1 fL (80-100); Monocytes Absolute Auto 600 /uL (0-900); Monocytes Percent Auto 9.1 % (3-14); Neutrophils Absolute Auto 4900 /uL (1500-7000); Platelet Count 210 X10^3/uL (150-400); Red Blood Cell Count 4.04 X10^6/uL (4.5-5.9); Red Cell Distribution Width 14.8 % (11.6-14.8); White Blood Cell Count 6.4 X10^3/uL (4.5-11.0)
[2020-04-27 05:18] LABS: BUN Creatinine Ratio 17.4 (6-22); Blood Urea Nitrogen 12 mg/dL (9-20); Calcium 9.1 mg/dL (8.4-10.2); Carbon Dioxide 15 mmol/L (22-32); Chloride 116 mmol/L (98-107); Estimated Glomerular Filt Rate > 60.0 mL/min (>60); Glucose 256 mg/dL (70-100); HEMOLYSIS < 15 (0-50); Magnesium 1.9 mg/dL (1.6-2.3); Phosphorous 2.7 mg/dL (2.5-4.5); Potassium 4.1 mmol/L (3.4-5.1); Sodium 143 mmol/L (137-145)
[2020-04-27] MEDS: PANTOPRAZOLE 40 MG VIAL 20 MG IV (08:22)
[2020-04-27] MEDS: ONDANSETRON 4 MG/2 ML INJ IV (08:23)
[2020-04-27] MEDS: ENOXAPARIN 40 MG/0.4 ML SYRINGE SUBCUT (08:23)
[2020-04-27] MEDS: BISACODYL 10 MG SUPP PR (12:11)
[2020-04-27] MEDS: METFORMIN HCL 500 MG TABLET PO ×2 (12:12→17:09)
--- NOTE | 2020-04-27 14:43 | PM.PNPO.1 ---
Subjective Subjective Date Patient Seen: 04/27/20 Time Patient Seen: 14:43 Interval history: Patient feels a little bloated. Has been taking p.o. liquids. Still passing flatus but has had not had a bowel movement. He was just given a suppository however. Exam Vital Signs (past 8 hours): - 04/27/20 08:00 04/27/20 12:00 Temperature 98.3 F 98.3 F Pulse Rate 87 78 Respiratory Rate 17 18 Blood Pressure 141/76 H 147/77 H Pulse Oximetry 97 97 Oxygen Delivery Method Room Air Oxygen Flow Rate 0 Narrative Exam Narrative: Lungs are clear. Good effort. Heart regular rate and rhythm without murmur gallop. Abdomen is soft and nontender without guarding. Incision is intact without cellulitis. It is a little distended. He was just given a suppository and it has not worked yet. Objective Labs Result Diagrams: 04/27/20 04:40 04/27/20 04:40 Labs: Laboratory Results - last 24 hr 04/27/20 04/27/20 04:40 04:40 WBC 6.4 RBC 4.04 L Hgb 12.4 L Hct 38.0 L MCV 94.1 MCH 30.8 MCHC 32.7 RDW 14.8 Plt Count 210 Neut % (Auto) 76.0 H Lymph % (Auto) 12.0 L Robertson % (Auto) 9.1 Eos % (Auto) 2.3 Baso % (Auto) 0.6 Neut # (Auto) 4900 Lymph # (Auto) 800 L Robertson # (Auto) 600 Eos # (Auto) 100 Baso # (Auto) 0 Sodium 143 Potassium 4.1 Chloride 116 H Carbon Dioxide 15 L BUN 12 Creatinine 0.69 Estimated GFR > 60.0 BUN/Creatinine Ratio 17.4 Glucose 256 H Calcium 9.1 Phosphorus 2.7 Magnesium 1.9 Assessment & Plan Post-op Postoperative Procedures: Procedures Operation Date: 04/24/20 17:00 Actual Procedures Side Surgeon p Exploratory Laparotomy GEN, LYSIS OF ADHESIONS Not Applicable Christiano Marques MD Postoperative status: doing well Postoperative status narrative: Little slow to open up. Hematocrit a little low. Postoperative plan narrative: Suspect mild anemia is just from fluid shifts and probably will be fine once he mobilizes his 3rd space. Sugars have been very difficult to control. I have added back is metformin. He is getting a low dose of long-acting insulin and as needed insulin instilled his sugars are in the mid 200s. He says that is typical whenever he is sick. Quality VTE Deep Vein Thrombosis/Pulmonary Embolism Present on Admission: No
[2020-04-27] MEDS: INSULIN GLARGINE 100 UNIT/ML 3ML PEN 15 UNIT SUBCUT (21:36)
[2020-04-28] MEDS: SODIUM CHLORIDE 0.9% 1,000 ML 150 ML IV (02:47)
[2020-04-28 03:00] VITALS: O2SAT 98
[2020-04-28 05:47] VITALS: BP 137/74; PULSE 69; RESP 16; TEMP 36.9; O2SAT 96
--- NOTE | 2020-04-28 06:30 | PC.NURSE ---
Pt doing well. Denies pain/nausea Passing Gas. +Bowel tones. States he had a small BM on evening shift. Midline incision with khai VANDANA, well approximated, no drainage. Not red. IVF running as ordered CBG 222 Tolerating clear liquid diet
[2020-04-28 08:00] VITALS: BP 148/85; PULSE 70; RESP 18; TEMP 36.6; O2SAT 100; O2SAT 96
--- NOTE | 2020-04-28 08:12 | PM.PNPO.1 ---
Subjective Subjective Date Patient Seen: 04/28/20 Time Patient Seen: 08:12 Interval history: No acute overnight events. Tolerating clear liquid diet no nausea vomiting passing gas. Ambulating well. Exam Vital Signs (past 8 hours): - 04/28/20 03:00 04/28/20 05:47 Temperature 98.4 F Pulse Rate 69 Respiratory Rate 16 Blood Pressure 137/74 Pulse Oximetry 98 96 Oxygen Delivery Method Room Air Oxygen Flow Rate 0 Narrative Exam Narrative: General adult male alert oriented no acute distress Abdomen soft nontender midline incision clean dry intact with khai. Objective Labs Result Diagrams: 04/27/20 04:40 04/27/20 04:40 Assessment & Plan Post-op Postoperative Procedures: Procedures Operation Date: 04/24/20 17:00 Actual Procedures Side Surgeon p Exploratory Laparotomy GEN, LYSIS OF ADHESIONS Not Applicable Christiano Marques MD Postoperative status narrative: 45-year-old man postoperative day 4 after exploratory laparotomy lysis of adhesions for small-bowel obstruction. He is overall doing well making appropriate recovery from the operation. -advanced to diabetic diet. -DC IV fluids. -SCDs and prophylactic Lovenox. -potential discharge later this evening versus tomorrow. Quality VTE Deep Vein Thrombosis/Pulmonary Embolism Present on Admission: No
[2020-04-28] MEDS: ENOXAPARIN 40 MG/0.4 ML SYRINGE SUBCUT (08:47)
[2020-04-28] MEDS: PANTOPRAZOLE 40 MG VIAL 20 MG IV (08:47)
[2020-04-28] MEDS: METFORMIN HCL 500 MG TABLET PO ×2 (09:00→17:36)
[2020-04-28] MEDS: INSULIN ASPART 100 UNIT/ML INSULN PEN SUBCUT ×3 (09:01→17:38)
[2020-04-28 12:00] VITALS: BP 147/80; PULSE 66; RESP 18; TEMP 36.4; O2SAT 96; O2SAT 99
--- NOTE | 2020-04-28 13:52 | PC.NURSE ---
Day shift note: 1245: Received patient from PACU, on RA, awake, alert, and calm. VSS and afebrile. SCD's placed upon arrival. IVF initiated. Oriented to room, environment, and plan of care.
--- NOTE | 2020-04-28 14:52 | PC.NURSE ---
Day shift note: Tolerated ADA diet, no C/O Nausea or vomiting. + flatus. Ambulating in room, and hallway multiple times this shift. Discharge instructions given to patient, discussed importance of F/U with Dr. Marques in 1 week, activity and weight restrictions, s/sx of infection, wound care, and diet. Verbalized understanding of instructions. Awaiting for Sister to get off work for a discharge time.
[2020-04-28 16:00] VITALS: O2SAT 97
--- NOTE | 2020-04-29 14:08 | PM.DS.1 ---
History of Present Illness History of Present Illness Chief complaint: lower right abd pain 6/10 x4 days Narrative: This is a 44-year-old male seen in evaluation for for small-bowel obstruction. 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 He recovered from the operation uneventfully and then to over the course of the last 2 days he developed nausea vomiting abdominal bloating. He present to the emergency room today afebrile vital signs within normal limits white blood cell count 7, normal lactate, procalcitonin 0.9. CT of the abdomen pelvis was performed that demonstrates a small-bowel obstruction with a transition point in the left lower quadrant no free air or free fluid. Medical history is significant for insulin dependent diabetes. Discharge Providers Provider Date of admission: 04/24/20 14:08 Discharge Date: 04/29/20 Primary care physician: ZULEYKA Jorgensen Consults: 04/25/20 08:09 Consult to Physical Therapy Evaluate & Treat Comment: Physician Instructions: Evaluate and Treat Discharge provider: Christiano Marques MD Summary Hospital Course Discharge Diagnosis: Small-bowel obstruction Hospital Course: Patient was taken to the operating room underwent an exploratory laparotomy and lysis of adhesions 04/24. He is found have a adhesive small-bowel obstruction with viable bowel in the right lower quadrant. Postoperatively he had return of bowel function is nasogastric tube was removed site was advanced. On the date of discharge 04/29/2020 he is doing well is tolerating regular diet is afebrile with well controlled abdominal pain having bowel movements and passed flatus. Status at Discharge Cognitive/behavioral status at discharge: oriented Functional status at discharge: independent ambulation Overall status at discharge: patient is back to baseline Time Spent with Patient Time spent: Greater than 30 minutes Exam Vital Signs (past 8 hours): Oxygen Delivery Method Room Air Oxygen Flow Rate 0 Narrative Exam Narrative: General adult male alert oriented no acute distress Abdomen soft mildly tender at the incision which is clean dry intact with khai in place Extremities warm well perfused Objective Labs Result Diagrams: 04/27/20 04:40 04/27/20 04:40 Discharge Plan Discharge Plan Patient Disposition: Home Discharge orders & Medications Prescriptions: New docusate sodium [Colace] 100 mg capsule 100 mg PO BID Qty: 30 RF: 0 oxycodone 5 mg tablet 5 mg PO Q6H PRN (Reason: pain) Qty: 30 RF: 0 acetaminophen [Tylenol] 325 mg capsule 650 mg PO QID PRN (Reason: pain) Qty: 60 RF: 0 Continued simvastatin 10 mg tablet 10 mg PO BEDTIME Qty: 90 RF: 1 metformin 500 mg tablet 500 mg PO BID Qty: 180 RF: 1 Lantus Solostar U-100 Insulin 100 unit/mL (3 mL) insulin pen 30 unit SUBCUT DAILY 90 Days Qty: 27 RF: 1 insulin aspart U-100 [Novolog U-100 Insulin aspart] 100 unit/mL solution 5 - 10 unit SUBCUT TID 90 Days Qty: 30 RF: 1 Follow up/Referrals: Aubrie Greene ARNP [Primary Care Provider] - Christiano Marques MD [Physician] - Diet/Activity/Treatments Activity: No lifting >20 lbs x 6 weeks. Walking only for exercise for 4 weeks[address] while taking narcotics. Skin/Wound/Dressing Care Report to your healthcare provider any signs of infection, such as:: chills, fever, increased pain, unusual drainage and unusual redness Visit Report/Discharge Packet Instructions: [facility]: Wound Care Visit Report Forms: Patient Portal/API, Stroke Signs & Symptoms Discharge Data Primary Care Provider: Aubrie Greene Discharges patient from system. Discharge Date/Time: 04/28/20 17:56 Quality VTE Deep Vein Thrombosis/Pulmonary Embolism Present on Admission: No
== END 2020-04-28 17:56 | disposition home or self-care (01) | DRG 224 ==
LOC: ED 13:58 → AC 14:10
PROVIDERS: Admitting Provider Surgery; Emergency Provider Emergency Medicine; PCP Nurse Practitioner; Referring Provider Emergency Medicine; Visit Provider Surgery
PROC: 0DNH0ZZ Release Cecum, Open Approach (ICD-10-PCS; CPT 49000; principal; 2020-04-24 17:00)
DX: K56.50 Intestinal adhesions [bands], unspecified as to partial versus complete obstruction (principal); K65.8 Other peritonitis; E11.9 Type 2 diabetes mellitus without complications; Z79.4 Long term (current) use of insulin
CPT/HCPCS: 36415; 44005; 71045; 74177; 74250; 80048; 80053; 82962; 83605; 83690; 83735; 84100; 84145; 85025; 85610; 85730; 87040; 87635; 93005; 94762; 96361; 96374; 96375; 97116; 97161; 99222; 99284; C9113; J0330; J1170; J1650; J2175; J2250; J2270; J2405; J2543; J2704; J3010; Q9967

== ENCOUNTER → 2020-05-08 10:41 | Outpatient (CLI) | payer OTHER, MEDICAID, SELFPAY ==
[2020-04-24 15:16] VITALS: BMI 24.3
== END ==
PROVIDERS: PCP Nurse Practitioner; Referring Provider Surgery; Visit Provider Family Medicine
DX: S31.605A Unspecified open wound of abdominal wall, periumbilic region with penetration into peritoneal cavity, initial encounter (principal); T81.31XA Disruption of external operation (surgical) wound, not elsewhere classified, initial encounter; E11.65 Type 2 diabetes mellitus with hyperglycemia; L08.9 Local infection of the skin and subcutaneous tissue, unspecified
CPT/HCPCS: 11042; 87070; 87075; 87077; 87147; 87186; 87205; 99203; 99213

== ENCOUNTER → 2020-05-13 10:54 | Outpatient (CLI) | payer OTHER, MEDICAID, SELFPAY ==
[2020-04-24 15:16] VITALS: BMI 24.3
== END ==
PROVIDERS: PCP Nurse Practitioner; Referring Provider Surgery; Visit Provider Family Medicine
DX: S31.605A Unspecified open wound of abdominal wall, periumbilic region with penetration into peritoneal cavity, initial encounter (principal); T81.31XA Disruption of external operation (surgical) wound, not elsewhere classified, initial encounter; E11.65 Type 2 diabetes mellitus with hyperglycemia; L08.9 Local infection of the skin and subcutaneous tissue, unspecified; B95.4 Other streptococcus as the cause of diseases classified elsewhere
CPT/HCPCS: 11042; 97605; 99214

== ENCOUNTER → 2020-05-15 09:29 | Outpatient (CLI) | payer OTHER, MEDICAID, SELFPAY ==
[2020-04-24 15:16] VITALS: BMI 24.3
== END ==
PROVIDERS: PCP Nurse Practitioner; Referring Provider Nurse Practitioner; Visit Provider Family Medicine
DX: T81.31XA Disruption of external operation (surgical) wound, not elsewhere classified, initial encounter (principal); S31.102A Unspecified open wound of abdominal wall, epigastric region without penetration into peritoneal cavity, initial encounter
CPT/HCPCS: 97605

== ENCOUNTER → 2020-05-19 11:32 | Outpatient (CLI) | payer OTHER, MEDICAID, SELFPAY ==
[2020-04-24 15:16] VITALS: BMI 24.3
== END ==
PROVIDERS: PCP Nurse Practitioner; Referring Provider Surgery; Visit Provider Family Medicine
DX: S31.605A Unspecified open wound of abdominal wall, periumbilic region with penetration into peritoneal cavity, initial encounter (principal); T81.31XA Disruption of external operation (surgical) wound, not elsewhere classified, initial encounter; E11.65 Type 2 diabetes mellitus with hyperglycemia; L08.9 Local infection of the skin and subcutaneous tissue, unspecified; B95.4 Other streptococcus as the cause of diseases classified elsewhere
CPT/HCPCS: 11042; 87070; 87075; 87186; 87205; 99213

== ENCOUNTER → 2020-05-22 09:06 | Outpatient (CLI) | payer OTHER, MEDICAID, SELFPAY ==
[2020-04-24 15:16] VITALS: BMI 24.3
[2020-05-22 10:37] LABS: Add Manual Diff / Slide Review NO; Basophils Absolute Auto 0 /uL (0-100); Eosinophils Absolute Auto 200 /uL (0-450); Hematocrit 40.8 % (41-53); Hemoglobin 13.9 g/dL (13.5-17.5); Lymphocytes Absolute Auto 1500 /uL (1100-4500); Lymphocytes Percent Auto 32.8 % (25-40); Mean Corpuscular HGB Conc 34.1 % (30-36); Mean Corpuscular Hemoglobin 30.3 PG (26-34); Mean Corpuscular Volume 88.7 fL (80-100); Monocytes Absolute Auto 300 /uL (0-900); Monocytes Percent Auto 6.6 % (3-14); Neutrophils Absolute Auto 2500 /uL (1500-7000); Neutrophils Percent Auto 55.6 % (50-75); Platelet Count 254 X10^3/uL (150-400); Red Cell Distribution Width 13.9 % (11.6-14.8); White Blood Cell Count 4.5 X10^3/uL (4.5-11.0)
[2020-05-22 10:51] LABS: Alanine Aminotransferase 15 IU/L (<50); Albumin 4.1 g/dL (3.5-5.0); Albumin Globulin Ratio 1.5 (1.0-2.8); Alkaline Phosphatase 75 U/L (38-126); Aspartate Aminotransferase 21 IU/L (17-59); BUN Creatinine Ratio 35.5 (6-22); Bilirubin Total 0.6 mg/dL (0.2-1.3); Blood Urea Nitrogen 22 mg/dL (9-20); Calcium 9.5 mg/dL (8.4-10.2); Carbon Dioxide 29 mmol/L (22-32); Chloride 96 mmol/L (98-107); Cholesterol 171 mg/dL (140-199); Estimated Glomerular Filt Rate > 60.0 mL/min (>60); Globulin 2.8 g/dL (1.7-4.1); Glucose 364 mg/dL (70-100); HDL Cholesterol 40 mg/dL (40-60); HEMOLYSIS < 15 (0-50); LDL Cholesterol Calculated 105 mg/dL (<100); Potassium 5.2 mmol/L (3.4-5.1); Sodium 134 mmol/L (137-145); Total Protein 6.9 g/dL (6.3-8.2); Triglycerides 129 mg/dL (35-150)
[2020-05-22 11:00] LABS: Creatinine Urine Random 54.9 mg/dL
[2020-05-22 11:02] LABS: Microalbumin Urine Random 1.1 mg/dL (0-1.6)
[2020-05-22 11:05] LABS: Free T3, Triiodothyronine Free 3.05 pg/mL (2.77-5.27); Free T4, Direct Thyroxine 0.99 ng/dL (0.78-2.19)
[2020-05-22 11:19] LABS: Thyroid Stimulating Hormone 1.75 uIU/mL (0.47-4.68)
== END ==
PROVIDERS: PCP Nurse Practitioner; Referring Provider Nurse Practitioner; Visit Provider Nurse Practitioner
DX: E11.9 Type 2 diabetes mellitus without complications (principal); E78.2 Mixed hyperlipidemia; Z79.4 Long term (current) use of insulin
CPT/HCPCS: 36415; 80053; 80061; 82043; 82570; 83036; 84439; 84443; 84481; 85025

== ENCOUNTER → 2020-05-22 12:00 | Outpatient (CLI) | payer OTHER, MEDICAID, SELFPAY ==
[2020-04-24 15:16] VITALS: BMI 24.3
== END ==
PROVIDERS: PCP Nurse Practitioner; Referring Provider Nurse Practitioner; Visit Provider Family Medicine
DX: E11.9 Type 2 diabetes mellitus without complications (principal); E78.2 Mixed hyperlipidemia; Z79.4 Long term (current) use of insulin; T81.31XA Disruption of external operation (surgical) wound, not elsewhere classified, initial encounter; S31.102A Unspecified open wound of abdominal wall, epigastric region without penetration into peritoneal cavity, initial encounter
CPT/HCPCS: 36415; 80053; 80061; 82043; 82570; 83036; 84439; 84443; 84481; 85025; 97605

== ENCOUNTER → 2020-05-26 15:06 | Outpatient (CLI) | payer OTHER, MEDICAID, SELFPAY ==
[2020-04-24 15:16] VITALS: BMI 24.3
== END ==
PROVIDERS: PCP Nurse Practitioner; Referring Provider Nurse Practitioner; Visit Provider Family Medicine
DX: S31.605A Unspecified open wound of abdominal wall, periumbilic region with penetration into peritoneal cavity, initial encounter (principal); T81.31XA Disruption of external operation (surgical) wound, not elsewhere classified, initial encounter; E11.65 Type 2 diabetes mellitus with hyperglycemia; L08.9 Local infection of the skin and subcutaneous tissue, unspecified; B96.1 Klebsiella pneumoniae [K. pneumoniae] as the cause of diseases classified elsewhere
CPT/HCPCS: 97605; 99214

== ENCOUNTER → 2020-05-30 10:49 | Outpatient (CLI) | payer OTHER, MEDICAID, SELFPAY ==
[2020-04-24 15:16] VITALS: BMI 24.3
== END ==
PROVIDERS: PCP Nurse Practitioner; Referring Provider Nurse Practitioner; Visit Provider Family Medicine
DX: T81.31XA Disruption of external operation (surgical) wound, not elsewhere classified, initial encounter (principal); S31.102A Unspecified open wound of abdominal wall, epigastric region without penetration into peritoneal cavity, initial encounter
CPT/HCPCS: 97605

== ENCOUNTER → 2020-06-03 11:16 | Outpatient (CLI) | payer OTHER, MEDICAID, SELFPAY ==
[2020-04-24 15:16] VITALS: BMI 24.3
== END ==
PROVIDERS: PCP Nurse Practitioner; Referring Provider Nurse Practitioner; Visit Provider Family Medicine
DX: S31.605A Unspecified open wound of abdominal wall, periumbilic region with penetration into peritoneal cavity, initial encounter (principal); T81.31XA Disruption of external operation (surgical) wound, not elsewhere classified, initial encounter; E11.65 Type 2 diabetes mellitus with hyperglycemia; L08.9 Local infection of the skin and subcutaneous tissue, unspecified; B96.1 Klebsiella pneumoniae [K. pneumoniae] as the cause of diseases classified elsewhere
CPT/HCPCS: 11042; 87070; 87075; 87077; 87186; 87205

== ENCOUNTER → 2020-06-06 12:05 | Outpatient (CLI) | payer OTHER, MEDICAID, SELFPAY ==
[2020-04-24 15:16] VITALS: BMI 24.3
== END ==
PROVIDERS: PCP Nurse Practitioner; Referring Provider Nurse Practitioner; Visit Provider Family Medicine
DX: T81.31XA Disruption of external operation (surgical) wound, not elsewhere classified, initial encounter (principal); S31.102A Unspecified open wound of abdominal wall, epigastric region without penetration into peritoneal cavity, initial encounter
CPT/HCPCS: 99212

== ENCOUNTER → 2020-06-13 10:15 | Outpatient (CLI) | payer OTHER, MEDICAID, SELFPAY ==
[2020-04-24 15:16] VITALS: BMI 24.3
== END ==
PROVIDERS: PCP Nurse Practitioner; Referring Provider Surgery; Visit Provider Family Medicine
DX: S31.605A Unspecified open wound of abdominal wall, periumbilic region with penetration into peritoneal cavity, initial encounter (principal); T81.31XA Disruption of external operation (surgical) wound, not elsewhere classified, initial encounter; L08.9 Local infection of the skin and subcutaneous tissue, unspecified; B95.7 Other staphylococcus as the cause of diseases classified elsewhere; E11.9 Type 2 diabetes mellitus without complications
CPT/HCPCS: 17250; 99214

== ENCOUNTER → 2020-06-16 15:01 | Outpatient (ROUT) | payer OTHER, MEDICAID, SELFPAY ==
[2020-04-24 15:16] VITALS: BMI 24.3
== END ==
PROVIDERS: PCP Nurse Practitioner; Visit Provider Family Medicine
DX: S31.109A Unspecified open wound of abdominal wall, unspecified quadrant without penetration into peritoneal cavity, initial encounter (principal)
CPT/HCPCS: 87070; 87205

== ENCOUNTER → 2020-06-17 11:05 | Outpatient (CLI) | payer OTHER, MEDICAID, SELFPAY ==
[2020-04-24 15:16] VITALS: BMI 24.3
== END ==
PROVIDERS: PCP Nurse Practitioner; Referring Provider Nurse Practitioner; Visit Provider Family Medicine
DX: S31.605A Unspecified open wound of abdominal wall, periumbilic region with penetration into peritoneal cavity, initial encounter (principal); T81.31XA Disruption of external operation (surgical) wound, not elsewhere classified, initial encounter; L08.9 Local infection of the skin and subcutaneous tissue, unspecified; B95.7 Other staphylococcus as the cause of diseases classified elsewhere; E11.9 Type 2 diabetes mellitus without complications
CPT/HCPCS: 11042; 87070; 87075; 87077; 87186; 87205

== ENCOUNTER → 2020-06-25 10:41 | Outpatient (CLI) | payer OTHER, MEDICAID, SELFPAY ==
[2020-04-24 15:16] VITALS: BMI 24.3
== END ==
PROVIDERS: PCP Nurse Practitioner; Referring Provider Nurse Practitioner; Visit Provider Family Medicine
DX: S31.605A Unspecified open wound of abdominal wall, periumbilic region with penetration into peritoneal cavity, initial encounter (principal); T81.31XA Disruption of external operation (surgical) wound, not elsewhere classified, initial encounter; E11.9 Type 2 diabetes mellitus without complications
CPT/HCPCS: 11042

== ENCOUNTER → 2020-07-02 09:02 | Outpatient (CLI) | payer OTHER, MEDICAID, SELFPAY ==
[2020-04-24 15:16] VITALS: BMI 24.3
== END ==
PROVIDERS: PCP Nurse Practitioner; Referring Provider Nurse Practitioner; Visit Provider Family Medicine
DX: S31.605A Unspecified open wound of abdominal wall, periumbilic region with penetration into peritoneal cavity, initial encounter (principal); T81.31XA Disruption of external operation (surgical) wound, not elsewhere classified, initial encounter; E11.9 Type 2 diabetes mellitus without complications; L08.9 Local infection of the skin and subcutaneous tissue, unspecified
CPT/HCPCS: 11042; 87070; 87075; 87077; 87186; 87205; 99213

== ENCOUNTER → 2020-07-09 10:12 | Outpatient (CLI) | payer OTHER, MEDICAID, SELFPAY ==
[2020-04-24 15:16] VITALS: BMI 24.3
== END ==
PROVIDERS: PCP Nurse Practitioner; Referring Provider Nurse Practitioner; Visit Provider Family Medicine
DX: S31.105A Unspecified open wound of abdominal wall, periumbilic region without penetration into peritoneal cavity, initial encounter (principal); T81.31XA Disruption of external operation (surgical) wound, not elsewhere classified, initial encounter; E11.9 Type 2 diabetes mellitus without complications; L08.9 Local infection of the skin and subcutaneous tissue, unspecified; B95.4 Other streptococcus as the cause of diseases classified elsewhere; E78.2 Mixed hyperlipidemia; Z79.4 Long term (current) use of insulin
CPT/HCPCS: 36415; 80053; 80061; 83036; 99213; 99214

== ENCOUNTER → 2020-07-09 10:13 | Outpatient (CLI) | payer OTHER, MEDICAID, SELFPAY ==
[2020-04-24 15:16] VITALS: BMI 24.3
[2020-07-09 11:19] LABS: Hemoglobin A1C% w Est Avg Glu 8.1 % (4.0-6.0)
[2020-07-09 11:50] LABS: Alanine Aminotransferase 16 IU/L (<50); Albumin 4.2 g/dL (3.5-5.0); Albumin Globulin Ratio 1.6 (1.0-2.8); Alkaline Phosphatase 72 U/L (38-126); Aspartate Aminotransferase 20 IU/L (17-59); Bilirubin Total 0.6 mg/dL (0.2-1.3); Blood Urea Nitrogen 19 mg/dL (9-20); Calcium 9.4 mg/dL (8.4-10.2); Carbon Dioxide 29 mmol/L (22-32); Chloride 102 mmol/L (98-107); Cholesterol 197 mg/dL (140-199); Estimated Glomerular Filt Rate > 60.0 mL/min (>60); Globulin 2.7 g/dL (1.7-4.1); Glucose 79 mg/dL (70-100); HDL Cholesterol 41 mg/dL (40-60); HEMOLYSIS < 15 (0-50); LDL Cholesterol Calculated 131 mg/dL (<100); Potassium 3.9 mmol/L (3.4-5.1); Sodium 139 mmol/L (137-145); Total Protein 6.9 g/dL (6.3-8.2); Triglycerides 123 mg/dL (35-150)
== END ==
PROVIDERS: PCP Nurse Practitioner; Referring Provider Nurse Practitioner; Visit Provider Nurse Practitioner
DX: E11.9 Type 2 diabetes mellitus without complications (principal); E78.5 Hyperlipidemia, unspecified; Z79.4 Long term (current) use of insulin
CPT/HCPCS: 36415; 80053; 80061; 83036

== ENCOUNTER → 2020-07-16 07:24 | Outpatient (CLI) | payer OTHER, MEDICAID, SELFPAY ==
[2020-04-24 15:16] VITALS: BMI 24.3
[2020-07-16 08:30] LABS: Hemoglobin A1C% w Est Avg Glu 8.1 % (4.0-6.0)
[2020-07-16 08:46] LABS: Alanine Aminotransferase 17 IU/L (<50); Albumin 4.6 g/dL (3.5-5.0); Albumin Globulin Ratio 1.5 (1.0-2.8); Alkaline Phosphatase 67 U/L (38-126); Aspartate Aminotransferase 23 IU/L (17-59); BUN Creatinine Ratio 45.2 (6-22); Bilirubin Total 0.5 mg/dL (0.2-1.3); Blood Urea Nitrogen 33 mg/dL (9-20); Calcium 9.4 mg/dL (8.4-10.2); Carbon Dioxide 30 mmol/L (22-32); Chloride 99 mmol/L (98-107); Cholesterol 194 mg/dL (140-199); Estimated Glomerular Filt Rate > 60.0 mL/min (>60); Glucose 392 mg/dL (70-100); HDL Cholesterol 44 mg/dL (40-60); HEMOLYSIS 22 (0-50); LDL Cholesterol Calculated 108 mg/dL (<100); Potassium 4.3 mmol/L (3.4-5.1); Sodium 137 mmol/L (137-145); Total Protein 7.6 g/dL (6.3-8.2); Triglycerides 208 mg/dL (35-150)
[2020-07-16 10:33] LABS: Microalbumi Creatinin Ratio Ur 17.5 ug/mg CR (<30)
== END ==
PROVIDERS: PCP Nurse Practitioner; Referring Provider Nurse Practitioner; Visit Provider Nurse Practitioner
DX: E11.9 Type 2 diabetes mellitus without complications (principal); E78.2 Mixed hyperlipidemia; Z79.4 Long term (current) use of insulin
CPT/HCPCS: 36415; 80053; 80061; 82043; 82570; 83036

== ENCOUNTER → 2020-07-17 09:37 | Outpatient (CLI) | payer OTHER, MEDICAID, SELFPAY ==
[2020-04-24 15:16] VITALS: BMI 24.3
== END ==
PROVIDERS: PCP Nurse Practitioner; Referring Provider Surgery; Visit Provider Family Medicine
DX: S31.105A Unspecified open wound of abdominal wall, periumbilic region without penetration into peritoneal cavity, initial encounter (principal); T81.31XA Disruption of external operation (surgical) wound, not elsewhere classified, initial encounter; E11.9 Type 2 diabetes mellitus without complications; L08.9 Local infection of the skin and subcutaneous tissue, unspecified; B95.4 Other streptococcus as the cause of diseases classified elsewhere; Z79.2 Long term (current) use of antibiotics
CPT/HCPCS: 11042; 99214

== ENCOUNTER → 2020-07-24 13:35 | Outpatient (CLI) | payer OTHER, MEDICAID, SELFPAY ==
[2020-04-24 15:16] VITALS: BMI 24.3
== END ==
PROVIDERS: PCP Nurse Practitioner; Referring Provider Nurse Practitioner; Visit Provider Family Medicine
DX: S31.105A Unspecified open wound of abdominal wall, periumbilic region without penetration into peritoneal cavity, initial encounter (principal); T81.31XA Disruption of external operation (surgical) wound, not elsewhere classified, initial encounter; E11.9 Type 2 diabetes mellitus without complications; L08.9 Local infection of the skin and subcutaneous tissue, unspecified; B95.4 Other streptococcus as the cause of diseases classified elsewhere; Z79.2 Long term (current) use of antibiotics
CPT/HCPCS: 11042; 99213

== ENCOUNTER → 2020-07-31 14:03 | Outpatient (CLI) | payer OTHER, MEDICAID, SELFPAY ==
[2020-04-24 15:16] VITALS: BMI 24.3
== END ==
PROVIDERS: PCP Nurse Practitioner; Referring Provider Nurse Practitioner; Visit Provider Family Medicine
DX: S31.105A Unspecified open wound of abdominal wall, periumbilic region without penetration into peritoneal cavity, initial encounter (principal); T81.31XA Disruption of external operation (surgical) wound, not elsewhere classified, initial encounter; E11.9 Type 2 diabetes mellitus without complications; Z79.2 Long term (current) use of antibiotics; L08.9 Local infection of the skin and subcutaneous tissue, unspecified; B95.4 Other streptococcus as the cause of diseases classified elsewhere
CPT/HCPCS: 99213

== ENCOUNTER → 2020-08-07 16:15 | Outpatient (CLI) | payer OTHER, MEDICAID, SELFPAY ==
[2020-04-24 15:16] VITALS: BMI 24.3
== END ==
PROVIDERS: PCP Nurse Practitioner; Referring Provider Nurse Practitioner; Visit Provider Family Medicine
DX: Z79.2 Long term (current) use of antibiotics (principal)
CPT/HCPCS: 99212; 99213

== ENCOUNTER → 2020-10-01 11:08 | Outpatient (CLI) | payer OTHER, MEDICAID, SELFPAY ==
[2020-04-24 15:16] VITALS: BMI 24.3
[2020-10-01 13:08] LABS: Alanine Aminotransferase 22 IU/L (<50); Albumin 4.8 g/dL (3.5-5.0); Albumin Globulin Ratio 1.8 (1.0-2.8); Alkaline Phosphatase 88 U/L (38-126); Aspartate Aminotransferase 21 IU/L (17-59); BUN Creatinine Ratio 32.1 (6-22); Bilirubin Total 0.9 mg/dL (0.2-1.3); Blood Urea Nitrogen 27 mg/dL (9-20); Calcium 9.7 mg/dL (8.4-10.2); Carbon Dioxide 23 mmol/L (22-32); Chloride 98 mmol/L (98-107); Cholesterol 259 mg/dL (140-199); Estimated Glomerular Filt Rate > 60.0 mL/min (>60); Globulin 2.7 g/dL (1.7-4.1); Glucose 416 mg/dL (70-100); HDL Cholesterol 32 mg/dL (40-60); HEMOLYSIS < 15 (0-50); Potassium 4.8 mmol/L (3.4-5.1); Sodium 135 mmol/L (137-145); Total Protein 7.5 g/dL (6.3-8.2); Triglycerides 403 mg/dL (35-150)
== END ==
PROVIDERS: PCP Nurse Practitioner; Referring Provider Nurse Practitioner; Visit Provider Nurse Practitioner
DX: E11.65 Type 2 diabetes mellitus with hyperglycemia (principal); E11.9 Type 2 diabetes mellitus without complications; E78.2 Mixed hyperlipidemia; Z79.4 Long term (current) use of insulin; Z79.899 Other long term (current) drug therapy
CPT/HCPCS: 36415; 80053; 80061; 83036

== ENCOUNTER 2020-12-26 18:07 | Inpatient (IN) | payer OTHER, MEDICAID, SELFPAY ==
[2020-04-24 15:16] VITALS: BMI 24.3
[2020-12-26] VITALS (7 sets, daily range): BP systolic 103–139; BP diastolic 56–73; PULSE 76–101; RESP 18–21; TEMP 36.3–37; O2SAT 93–98; BMI 27.8
--- NOTE | 2020-12-26 18:11 | ED_ITS ---
HPI - Abdominal Pain General Chief Complaint: Abdominal Pain Stated Complaint: right side abd pain for couple days. Time Seen by Provider: 12/26/20 18:10 Source: patient and EMS Mode of arrival: EMS Limitations: no limitations History of Present Illness HPI narrative: 45 year old male with complaint of diarrhea for 2 days, hernia that is midline ventral for approximately a month and abdominal pain that began this evening. Patient denies any fevers. He did start developing shakes, he relates this to having his short-acting insulin and not having eaten recently. Patient states he does not have any nausea or vomiting. He had several episodes of loose diarrhea like stools the last 2 days. He had a small constipated ?rabbit pellet stool? that was difficult to have earlier today. He denies any melena or hematochezia. Patient denies any dysuria, urgency or frequency. He states that he has a history of bowel obstruction, and had necrotic tissue taken out of his abdomen. At that time they thought he had appendicitis but that was not what was removed. Patient is an insulin-dependent diabetic he also takes a statin. He denies any other surgeries. No known drug allergies. Denies tobacco, occasional alcohol. No illicit. Related Data Home Medications Medication Instructions Recorded Confirmed insulin glargine [Lantus Solostar 60 unit SUBCUT DAILY 12/26/20 U-100 Insulin] Previous Rx's Medication Instructions Recorded acetaminophen [Tylenol] 650 mg PO QID PRN #60 cap 04/28/20 blood sugar diagnostic #300 each 05/21/20 blood-glucose sensor #3 each 05/21/20 insulin syringe-needle U-100 1 mL #300 each 07/08/20 29 gauge x 1/2 pen needle, diabetic 31 gauge x #100 each 07/08/20 3/16 simvastatin 10 mg tablet 10 mg PO BEDTIME #90 tab 07/09/20 blood-glucose transmitter #1 each 09/29/20 blood-glucose meter,continuous #1 each 12/01/20 insulin aspart U-100 100 unit/mL 5 - 10 unit SUBCUT TID 90 Days #30 12/15/20 subcutaneous solution ml Allergies Allergy/AdvReac Type Severity Reaction Status Date / Time No Known Drug Allergies Allergy Verified 12/26/20 18:11 Review of Systems Review of Systems ROS Unobtainable: All systems reviewed & are unremarkable except as noted in HPI and below Patient History Medical History (Updated 12/26/20 @ 21:33 by [facility] Abdominal hernia History of small bowel obstruction Insulin dependent diabetes mellitus Surgical History (Updated 12/26/20 @ 21:32 by JEFFRY Engel) History of abdominal surgery Family History (Updated 12/27/20 @ 03:56 by [facility] Grandmother Heart attack Stroke Mother Blind Social History household members: family Smoking Status: Never smoker Smoking Status: Never smoker alcohol intake frequency: holidays/special occasions only Substance Use Type: does not use Exam Narrative Exam Narrative: GEN: well nourished, well appearing male, alert and oriented x 3, patient appears to be in mild distress. HEENT: Atraumatic, pupils are equal round reactive to light, extraocular movements are intact, nares are clear, patient has cerumen impaction on the right, unable to visualize TM. Patient also has cerumen on the left. There is no conjunctival pallor. Throat is clear without any exudates, erythema, tonsillar enlargement or uvular deviation HEART: Regular rate and rhythm without murmur, clicks, rubs. LUNGS:Lungs clear to auscultation, no wheezes, rales, crackles, chest moves symmetrically ABD:bowel sounds normal, distended, soft, positive for generalized tenderness, no guarding, rebound, rigidity, no masses noted, no hepatosplenomegaly, patient does have small ventral hernia that is soft but is tender at the midline superior edge of his incision. :No CVA tenderness MSCL: Non-tender, full range of motion, normal gait NEURO:CN 2-12 intact, sensation normal, patient does have a generalized shaking SKIN: No rash, skin changes are noted. Initial Vital Signs Initial Vital Signs: Vital Signs Temperature 98.6 F 12/26/20 18:08 Pulse Rate 76 12/26/20 18:08 Respiratory Rate 18 12/26/20 18:08 Blood Pressure 121/70 12/26/20 18:08 Pulse Oximetry 97 12/26/20 18:08 Scores GCS [place] coma scale eye opening: Spontaneous [place] coma scale verbal response: Orientated [place] coma scale motor response: Obey commands [place] coma scale total score: 15 Course Orders Ordered: Acetaminophen (Acetaminophen 325 Mg Tablet) 650 mg PO Q4HR PRN PRN Reason: Fever/Mild Pain (1-3) Al Hydrox/Mg Hydrox/Simethicone (Mag Hydrox/Alum/Simeth 30 Ml Udc) 30 ml PO Q6HR PRN PRN Reason: Dyspepsia Dextrose (Dextrose 50 % In Water 25 Gm/50 Ml Syringe) 25 gm IV PRN PRN PRN Reason: Hypoglycemia Last Admin: 12/26/20 21:52 Dose: 25 gm Documented by: SHIVA Enoxaparin Sodium (Enoxaparin 40 Mg/0.4 Ml Syringe) 40 mg SUBCUT DAILY TRUMAN Metronidazole (Flagyl) 500 mg in 100 mls @ 100 mls/hr IV Q8H TRUMAN Ceftriaxone Sodium/Dextrose (Rocephin) 2 gm in 50 mls @ 100 mls/hr IV Q24H TRUMAN Dextrose/Sodium Chloride (Dextrose 5%-0.9% Ns) 1,000 mls @ 150 mls/hr IV CONT TRUMAN Last Infusion: 12/27/20 03:40 Dose: 150 mls/hr Documented by: Infusion: 12/27/20 01:21 Dose: 0 mls/hr Documented by: Admin: 12/26/20 22:07 Dose: 150 mls/hr Documented by: KYM Influenza Virus Vaccine (Influenza Vaccine 0.5 Ml Syringe) 0.5 ml IM .ONCE ONE Stop: 12/27/20 09:01 Insulin Aspart (Insulin Aspart 100 Unit/Ml Insuln Pen) 0 unit SUBCUT ACHS TRUMAN; Protocol Last Admin: 12/26/20 21:55 Dose: Not Given Documented by: SHIVA Morphine Sulfate (Morphine 2 Mg/Ml Inj) 2 mg IV Q4HR PRN PRN Reason: Pain, Moderate (4-6) Naloxone HCl (Naloxone 0.4 Mg/Ml Vial) 0.2 mg IV Q2MIN PRN PRN Reason: Opiate Reversal Ondansetron HCl (Ondansetron 4 Mg/2 Ml Inj) 4 mg IV Q8HR PRN PRN Reason: Nausea And Vomiting Simvastatin (Simvastatin 20 Mg Tablet) 10 mg PO BEDTIME TRUMAN Discontinued Medications Acetaminophen (Acetaminophen 325 Mg Tablet) 975 mg PO NOW ONE Stop: 12/27/20 01:44 Last Admin: 12/27/20 02:10 Dose: 975 mg Documented by: TRES Glucagon (Glucagon,Human Recombinant 1 Mg/Ml Vial) 5 mg IV NOW ONE Stop: 12/26/20 21:51 Last Admin: 12/26/20 21:59 Dose: Not Given Documented by: SHIVA Sodium Chloride (Normal Saline 0.9%) 1,000 mls @ 1,000 mls/hr IV BOLUS ONE Stop: 12/26/20 19:27 Last Infusion: 12/26/20 21:02 Dose: 0 mls/hr Documented by: Admin: 12/26/20 18:54 Dose: 1,000 mls/hr Documented by: LEONELA Ceftriaxone Sodium/Dextrose (Rocephin) 1 gm in 50 mls @ 100 mls/hr IV NOW ONE Stop: 12/26/20 20:17 Last Infusion: 12/26/20 20:24 Dose: 0 mls/hr Documented by: Admin: 12/26/20 19:54 Dose: 100 mls/hr Documented by: BISI Metronidazole (Flagyl) 500 mg in 100 mls @ 100 mls/hr IV NOW ONE Stop: 12/26/20 20:46 Last Infusion: 12/26/20 21:02 Dose: 0 mls/hr Documented by: Admin: 12/26/20 20:29 Dose: 100 mls/hr Documented by: BISI Lactated Ringer's (Lactated Ringers) 1,000 mls @ 100 mls/hr IV CONT TRUMAN Last Admin: 12/27/20 02:27 Dose: Not Given Documented by: TRES Dextrose (Dextrose 5% Water) 1,000 mls @ 150 mls/hr IV CONT TRUMAN Magnesium Sulfate (Magnesium Sulfate) 2 gm in 50 mls @ 25 mls/hr IV NOW ONE Stop: 12/27/20 02:15 Last Infusion: 12/27/20 03:36 Dose: 0 mls/hr Documented by: TRES Cosigned by: CHRISTIANO Admin: 12/27/20 01:12 Dose: 25 mls/hr Documented by: TRES Cosigned by: ELINA Insulin Glargine (Insulin Glargine 100 Unit/Ml 3ml Pen) 60 unit SUBCUT [address] [facility] Last Admin: 12/26/20 21:55 Dose: Not Given Documented by: SHIVA Morphine Sulfate (Morphine 4 Mg/Ml Inj) 4 mg IV NOW ONE Stop: 12/26/20 18:36 Last Admin: 12/26/20 18:54 Dose: 4 mg Documented by: LEONELA Reevaluation(s) Reevaluation #1: patient is feeling much better on re-examination. Reviewed his labs, imaging and current findings. Suspected enterocolitis but appendix is noted to be abnormal. Suspected that this is related to surrounding inflammation and not especially the source but there is potential that he does have appendicitis. We did discuss the general surgeries thoughts about his current situation in the recommendations. Patient aware for plan for observation and monitoring with serial exams. Time: 19:45 Consultations Consultation #1: Dr. Gardner would not take patient to the OR at this time with the enteric colitis associated with his appendix changes. He would be somewhat suspicious for Crohn's and patient would likely benefit long-term from evaluation by Gastroenterology. He would recommend treating with antibiotics such as a broad strict him Rocephin and Flagyl and stool studies. We discussed if it would possibly be appropriate to keep him for observation, antibiotics and repeat evaluations. He would be happy to follow with the patient. Dr. Gardner was recontacted after discussion with hospitalist and updated that he was accepted or observation for consultation this morning. Time: 19:48 Consultation #2: URIEL Mathis, patient accepts for observation. Reviewed todays findings, patient recommendations for general surgery. lactate is pending but all other labs are resulted. Time: 20:25 Vital Signs Vital signs: Vital Signs - 8 hr 12/26/20 18:08 12/26/20 19:04 12/26/20 19:05 Temperature 98.6 F Pulse Rate 76 92 H 92 H Respiratory Rate 18 Blood Pressure 121/70 125/61 Pulse Oximetry 97 97 98 12/26/20 19:30 Temperature Pulse Rate 91 H Respiratory Rate 18 Blood Pressure 120/56 L Pulse Oximetry 94 MDM - Abdominal Pain Lab Data Attestation: I reviewed the patient's lab results. Result diagrams: 12/26/20 18:05 12/27/20 04:55 Labs: Lab Results 12/26/20 12/26/20 12/26/20 Range/Units 18:05 18:05 18:05 WBC 7.7 (4.5-11.0) X10^3/uL RBC 5.53 (4.5-5.9) X10^6/uL Hgb 16.3 (13.5-17.5) g/dL Hct 47.8 (41-53) % MCV 86.4 (80-100) fL MCH 29.6 (26-34) PG MCHC 34.2 (30-36) % RDW 14.3 (11.6-14.8) % Plt Count 206 (150-400) X10^3/uL Neut % (Auto) 56.0 (50-75) % Lymph % (Auto) 37.6 (25-40) % Newberry % (Auto) 4.6 (3-14) % Eos % (Auto) 1.3 L (2-4) % Baso % (Auto) 0.5 (0-2) % Neut # (Auto) 4300 (8040-2187) /uL Lymph # (Auto) 2900 (3862-0884) /uL Newberry # (Auto) 400 (0-900) /uL Eos # (Auto) 100 (0-450) /uL Baso # (Auto) 0 (0-100) /uL PT 11.2 (10.1-12.7) SECONDS INR 1.0 (0.9-1.3) APTT 26 L D (26.4-36.2) SECONDS Sodium 141 (137-145) mmol/L Potassium 3.5 (3.4-5.1) mmol/L Chloride 100 (98-107) mmol/L Carbon Dioxide 30 (22-32) mmol/L BUN 14 (9-20) mg/dL Creatinine 0.79 (0.66-1.25) mg/dL Estimated GFR > 60.0 (>60) mL/min BUN/Creatinine Ratio 17.7 (6-22) Glucose 131 H (70-100) mg/dL Lactate (0.7-2.1) mmol/L Calcium 9.5 (8.4-10.2) mg/dL Total Bilirubin 0.7 (0.2-1.3) mg/dL AST 21 (17-59) IU/L ALT 17 (<50) IU/L Alkaline Phosphatase 59 (38-126) U/L Total Protein 6.8 (6.3-8.2) g/dL Albumin 4.3 (3.5-5.0) g/dL Globulin 2.5 (1.7-4.1) g/dL Albumin/Globulin Ratio 1.7 (1.0-2.8) Lipase 23 (23-300) U/L Procalcitonin (<0.5) ng/mL SARS-CoV-2 (PCR) (Negative) 12/26/20 12/26/20 12/26/20 Range/Units 18:55 18:56 18:56 WBC (4.5-11.0) X10^3/uL RBC (4.5-5.9) X10^6/uL Hgb (13.5-17.5) g/dL Hct (41-53) % MCV (80-100) fL MCH (26-34) PG MCHC (30-36) % RDW (11.6-14.8) % Plt Count (150-400) X10^3/uL Neut % (Auto) (50-75) % Lymph % (Auto) (25-40) % Newberry % (Auto) (3-14) % Eos % (Auto) (2-4) % Baso % (Auto) (0-2) % Neut # (Auto) (1856-1146) /uL Lymph # (Auto) (8153-4180) /uL Newberry # (Auto) (0-900) /uL Eos # (Auto) (0-450) /uL Baso # (Auto) (0-100) /uL PT (10.1-12.7) SECONDS INR (0.9-1.3) APTT (26.4-36.2) SECONDS Sodium (137-145) mmol/L Potassium (3.4-5.1) mmol/L Chloride (98-107) mmol/L Carbon Dioxide (22-32) mmol/L BUN (9-20) mg/dL Creatinine (0.66-1.25) mg/dL Estimated GFR (>60) mL/min BUN/Creatinine Ratio (6-22) Glucose (70-100) mg/dL Lactate 3.5 H (0.7-2.1) mmol/L Calcium (8.4-10.2) mg/dL Total Bilirubin (0.2-1.3) mg/dL AST (17-59) IU/L ALT (<50) IU/L Alkaline Phosphatase (38-126) U/L Total Protein (6.3-8.2) g/dL Albumin (3.5-5.0) g/dL Globulin (1.7-4.1) g/dL Albumin/Globulin Ratio (1.0-2.8) Lipase (23-300) U/L Procalcitonin 0.04 (<0.5) ng/mL SARS-CoV-2 (PCR) Negative (Negative) Point of care testing: Point of Care Testing Glucose POC [address] scan - abdomen/pelvis: Radiologist's Impression: Chart Viewer Diagnostics DATE TYPE STATUS REF RANGE/AUTHOR Hx Today 18:28 FadumoGavino 04/24/20 14:34 Jeffy Huerta 04/24/20 14:12 Joby Farrar 04/24/20 13:00 Joby Farrar 09/04/19 13:26 FarrarJoby Delmar Torresua Stephane 45, M1975 REG ER, Main ED R12 187.96cm 98.43kg BMI: 27.9kg/m? Abdominal Pain Search Chart No Data to Display Total Unconfirmed ONSET Today 19:05 Sanjvi Torres 45 M [address] [id number] Scan ReportSigned Patient: Sanjiv Torres MMR#: [id number]: [id number]:[id number]/Sex: 45 / MDate of Service: 12/26/20Loc: EDAccession Number: [id number] Procedure: CT abdomen pelvis w con Ordering Provider: Rebekha Watson D.O. PROCEDURE: CT ABDOMEN PELVIS W CON INDICATIONS: diarrhea x2d, abd pain, hernia, hx bowel obstruction TECHNIQUE: After the administration of intravenous contrast, 5 mm thick sections acquired from the diaphragm to the symphysis. 5 mm coronal and sagittal reformats were acquired. For radiation dose reduction, the following was used: automated exposure control, adjustment of mA and/or kV according to patient size. COMPARISON: [facility], CT, CT ABDOMEN PELVIS W CON, 04/24/2020, 12:42. FINDINGS: Image quality: Excellent. ABDOMEN: Lung bases: There is mild atelectasis or scarring in the lung bases. Heart size is normal. There is a small hiatal hernia. Solid organs: Evaluation of the liver demonstrates no focal hepatic lesions. The gallbladder appears within normal limits without calcified gallstones. Biliary system is non-dilated. Pancreas enhances normally. No peripancreatic fat stranding or fluid collections. No pancreatic duct dilatation. The spleen is normal in size. No adrenal nodules. Kidneys demonstrate no hydronephrosis. Peritoneum and bowel: There is prominent gastric distention with mild wall thickening in the gastric antrum. Multiple segments of bowel wall thickening with associated fat stranding are demonstrated in the lower abdomen and pelvis involving the distal small bowel as well as the ascending and sigmoid colon. There is associated fat stranding and a small amount of free fluid compatible with a peritonitis. Mild segmental dilatation of a few small bowel loops is demonstrated in the lower abdomen, measuring up to 3.1 cm with scattered air-fluid levels suggestive of a functional obstruction or ileus. The appendix is thick-walled, measuring up to 1.1 cm in diameter with a small amount of intraluminal fluid. There are surgical sutures along the cecum reportedly from prior resection of an epiploic appendage. A small amount of free fluid is present in the pelvis. No intraperitoneal free air. Nodes and vessels: No retroperitoneal or mesenteric adenopathy by size criteria. Aorta and inferior vena cava are normal in size. Miscellaneous: No ventral hernias. PELVIS: Genitourinary: There is mild concentric bladder wall thickening. Miscellaneous: No inguinal hernias or adenopathy. Bones: No suspicious bony lesions. No vertebral body compression fractures. IMPRESSION: 1. Segmental bowel wall thickening involving multiple loops of distal small bowel as well as the ascending colon and sigmoid colon likely representing an infectious or inflammatory enterocolitis. This includes possible inflammatory bowel disease. 2. Mild associated upstream dilatation of small-bowel loops in the lower abdomen likely represents a functional partial obstruction or ileus. 3. Extensive fat stranding in the lower abdomen and pelvis with a small amount of fluid compatible with a peritonitis. 4. Appendiceal wall thickening and enhancement is nonspecific but appears si milar to the prior study and is suggestive of secondary reactive changes secondary to the regional peritonitis. No fluid distension. Findings discussed with Dr. Watson on 12/26/2020 at 6:53 p.m.. Dictated by: Gavino Thorne M.D. on 12/26/2020 at 19:06 Approved by: Gavino Thorne M.D. on 12/26/2020 at 19:17 [facility] Narrative Medical decision making narrative: This is a 45-year-old male comes emergency department with complaint of diarrhea for the last several days and abdominal pain which he describes is acutely onset today. Patient is quite shaky his apartment. His glucose was in the 100 range so this is thought to be less likely cause although he did take his short-acting insulin and has not actually eating today. Patient was given a small amount of juice. He also had his kidney treated with morphine and is feeling significantly better afterwards. His CT shows changes consistent with enteric colitis but also concerning for appendicitis. The appendix is throughout the area of inflammation and so this may be incidental swelling and signs of infection secondary to enteric colitis. Patient's labs showed elevated lactate of 3.5, have a leukocytosis or leftward shift. His calcitonin is negative. Patient is ketone positive. Covid swab is negative. Patient started on antibiotis and recommendations were given by Dr. Gardner for Rocephin/Flagyl He is happy to see patient but plan for admission t o medicine. He did discuss that there was concern for Crohn's or ulcerative colitis. Patient has also had multiple surgeries in the past. He does not feel patient is appropriate for surgery at this time with there concurrent findings on CT. And he feels may benefit from GI follow up in the future. Patient accepted by URIEL Mathis. Discharge Plan Departure Patient Disposition: Admitted as Observation Clinical Impression: Enterocolitis, Acute appendicitis, Acidosis, lactic Admit Date/Time: 12/26/20 20:25 Admit Provider: Val Mathis
[2020-12-26 18:25] LABS: Prothrombin Time 11.2 SECONDS (10.1-12.7)
[2020-12-26 18:27] LABS: PTT Partial Thromboplastin Tim 26 SECONDS (26.4-36.2)
--- NOTE | 2020-12-26 18:28 | DI.CT.S_ITS ---
PROCEDURE: CT ABDOMEN PELVIS W CON INDICATIONS: diarrhea x2d, abd pain, hernia, hx bowel obstruction TECHNIQUE: After the administration of intravenous contrast, 5 mm thick sections acquired from the diaphragm to the symphysis. 5 mm coronal and sagittal reformats were acquired. For radiation dose reduction, the following was used: automated exposure control, adjustment of mA and/or kV according to patient size. COMPARISON: [facility], CT, CT ABDOMEN PELVIS W CON, 04/24/2020, 12:42. FINDINGS: Image quality: Excellent. ABDOMEN: Lung bases: There is mild atelectasis or scarring in the lung bases. Heart size is normal. There is a small hiatal hernia. Solid organs: Evaluation of the liver demonstrates no focal hepatic lesions. The gallbladder appears within normal limits without calcified gallstones. Biliary system is non-dilated. Pancreas enhances normally. No peripancreatic fat stranding or fluid collections. No pancreatic duct dilatation. The spleen is normal in size. No adrenal nodules. Kidneys demonstrate no hydronephrosis. Peritoneum and bowel: There is prominent gastric distention with mild wall thickening in the gastric antrum. Multiple segments of bowel wall thickening with associated fat stranding are demonstrated in the lower abdomen and pelvis involving the distal small bowel as well as the ascending and sigmoid colon. There is associated fat stranding and a small amount of free fluid compatible with a peritonitis. Mild segmental dilatation of a few small bowel loops is demonstrated in the lower abdomen, measuring up to 3.1 cm with scattered air-fluid levels suggestive of a functional obstruction or ileus. The appendix is thick-walled, measuring up to 1.1 cm in diameter with a small amount of intraluminal fluid. There are surgical sutures along the cecum reportedly from prior resection of an epiploic appendage. A small amount of free fluid is present in the pelvis. No intraperitoneal free air. Nodes and vessels: No retroperitoneal or mesenteric adenopathy by size criteria. Aorta and inferior vena cava are normal in size. Miscellaneous: No ventral hernias. PELVIS: Genitourinary: There is mild concentric bladder wall thickening. Miscellaneous: No inguinal hernias or adenopathy. Bones: No suspicious bony lesions. No vertebral body compression fractures. IMPRESSION: 1. Segmental bowel wall thickening involving multiple loops of distal small bowel as well as the ascending colon and sigmoid colon likely representing an infectious or inflammatory enterocolitis. This includes possible inflammatory bowel disease. 2. Mild associated upstream dilatation of small-bowel loops in the lower abdomen likely represents a functional partial obstruction or ileus. 3. Extensive fat stranding in the lower abdomen and pelvis with a small amount of fluid compatible with a peritonitis. 4. Appendiceal wall thickening and enhancement is nonspecific but appears similar to the prior study and is suggestive of secondary reactive changes secondary to the regional peritonitis. No fluid distension. Findings discussed with Dr. Watson on 12/26/2020 at 6:53 p.m.. Dictated by: Gavino Thorne M.D. on 12/26/2020 at 19:06 Approved by: Gavino Thorne M.D. on 12/26/2020 at 19:17
[2020-12-26 18:29] LABS: Alanine Aminotransferase 17 IU/L (<50); Albumin 4.3 g/dL (3.5-5.0); Albumin Globulin Ratio 1.7 (1.0-2.8); Alkaline Phosphatase 59 U/L (38-126); Aspartate Aminotransferase 21 IU/L (17-59); BUN Creatinine Ratio 17.7 (6-22); Bilirubin Total 0.7 mg/dL (0.2-1.3); Blood Urea Nitrogen 14 mg/dL (9-20); Calcium 9.5 mg/dL (8.4-10.2); Carbon Dioxide 30 mmol/L (22-32); Chloride 100 mmol/L (98-107); Estimated Glomerular Filt Rate > 60.0 mL/min (>60); Globulin 2.5 g/dL (1.7-4.1); Glucose 131 mg/dL (70-100); HEMOLYSIS < 15 (0-50); Lipase 23 U/L (23-300); Potassium 3.5 mmol/L (3.4-5.1); Sodium 141 mmol/L (137-145); Total Protein 6.8 g/dL (6.3-8.2)
[2020-12-26 18:34] LABS: Add Manual Diff / Slide Review NO; Basophils Absolute Auto 0 /uL (0-100); Basophils Percent Auto 0.5 % (0-2); Eosinophils Absolute Auto 100 /uL (0-450); Eosinophils Percent Auto 1.3 % (2-4); Hematocrit 47.8 % (41-53); Hemoglobin 16.3 g/dL (13.5-17.5); Lymphocytes Absolute Auto 2900 /uL (1100-4500); Lymphocytes Percent Auto 37.6 % (25-40); Mean Corpuscular HGB Conc 34.2 % (30-36); Mean Corpuscular Hemoglobin 29.6 PG (26-34); Mean Corpuscular Volume 86.4 fL (80-100); Monocytes Absolute Auto 400 /uL (0-900); Monocytes Percent Auto 4.6 % (3-14); Neutrophils Absolute Auto 4300 /uL (1500-7000); Platelet Count 206 X10^3/uL (150-400); Red Blood Cell Count 5.53 X10^6/uL (4.5-5.9); Red Cell Distribution Width 14.3 % (11.6-14.8); White Blood Cell Count 7.7 X10^3/uL (4.5-11.0)
[2020-12-26] MEDS: SODIUM CHLORIDE 0.9% 1,000 ML 1000 ML IV (18:54)
[2020-12-26] MEDS: MORPHINE 4 MG/ML INJ IV (18:54)
[2020-12-26 19:34] LABS: Lactate (Lactic Acid) 3.5 mmol/L (0.7-2.1)
[2020-12-26 19:52] LABS: Procalcitonin 0.04 ng/mL (<0.5)
[2020-12-26] MEDS: CEFTRIAXONE 1 GM/50 ML FROZ.PIGGY IV (19:54)
[2020-12-26 19:59] LABS: COVID19 - ADMIT (NP swab/PCR) Negative (Negative)
[2020-12-26] MEDS: metroNIDAZOLE 500 MG/100 ML PIGGYBACK 100 MG IV (20:29)
[2020-12-26 21:06] LABS: Reflexed Lactate in 2 Hours Y
--- NOTE | 2020-12-26 21:23 | P.HP_ITS ---
History of Present Illness History of Present Illness Date Patient Seen: 12/26/20 Time Patient Seen: 20:52 Chief complaint: right side abd pain for couple days. Narrative: Patient is a 45-year-old male Sanjiv Torres who presented to the ED with a chief compliant of acute onset of abdominal pain that began this evening following diarrhea for 2 days. Patient reports 5-6 diarrhea a day for the last 2 days, he resulted to wearing a diaper. Patient notes that he does not have a sick day plan for his diabetes/insulin. And his only fluid intake has been water and has not supplemented his nutrition to replace electrolytes or sugars. He notes that he took his last meal insulin this afternoon prior to coming to the emergency room but has not taken his Lantus this evening. He reports small hard ?rabbit pellet stool? that was difficult to pass earlier today. Patient denies any fevers, nausea, vomiting, melena, hematochezia, dysuria, urgency, frequency, chest pain, shortness of breath, or worsening pain with deep breathing. Patient came into the ED because he states that he developed sharp intense upper & lower right abdominal pain with diffuse lower left abdominal pain, sharp & throbbing, constant and is exacerbated by movement and any touching of his abdomen, his pain improved with 4 mg of morphine IV in the ED pain level at this time is 2-3/10. As I did the patient's physical exam he began to develop severe shaking and diaphoresis all over which had similarly occurred in the ED as well during physical exam. Patient is hemodynamically stable and appears in no distress. Patient's blood sugar was 131 per lab in the ED, when he arrived on the floor his Accu-Chek BS was 53, patient was given 25 dextrose and D5 normal [id number] was hung. Patient received no insulin in ED and I held his p.m. Lantus dose. Patient has a history of a Phlegmon of infarcting tenia epiplocia surgery 09/04/[address] Aponte [facility], laparotomy and lysis of adhesions for small-bowel obstruction surgery on 04/24/[address] Marques [facility]. (patient notes this abdominal pain is similar to his abdominal pain that led to that surgery), patient developed a postop spontaneous bloody drainage and clot, then a draining ruptured hematoma f rom the midline incision requiring a wound VAC and wound care from March 2020 to July 2020. His wound was positive for Klebsiella, group B strep Viridians, and later Gram-negative bacilli. He developed approximately 1 month ago a midline ventral hernia. 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 No known drug allergies. Denies tobacco, occasional alcohol. No illicit. Dr. Watson consulted with Dr. Gardner by phone and he recommended the patient be admitted for observation started on Rocephin and Flagyl and that he would consult in the morning. Patient's vitals upon admit temp 98.6?, BP 120/56, HR 91, R 18, O2 saturation 94% on room air. Patient's CBC and CMP in ED were all within normal limits with the exception of a glucose of 131 and PTT of 26, lipase and procalcitonin were within normal limits lactate was 3.5. ABD/Pelvis CT:Segmental bowel wall thickening involving multiple loops of distal small bowel as well as the ascending colon and sigmoid colon likely representing an infectious or inflammatory enterocolitis. This includes possible inflammatory bowel disease. Mild associated upstream dilatation of small-bowel loops in the lower abdomen likely represents a functional partial obstruction or ileus. Extensive fat stranding in the lower abdomen and pelvis with a small amount of fluid compatible with a peritonitis. Appendiceal wall thickening and enhancement is nonspecific but appears similar to the prior study and is suggest lori of secondary reactive changes secondary to the regional peritonitis. No fluid distension. 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 Safety & Behavioral: Feels Safe in Current Yes Environment Been Physically Hurt or No Threatened By a Person Tobacco & Substance use: Smoking Status Never smoker alcohol intake frequency holiday/special occasion Substance Use Type does not use Meds Home Medications and Allergies Home Medications Medication Instructions Recorded Confirmed Type acetaminophen [Tylenol] 650 mg PO QID PRN #60 cap 04/28/20 12/26/20 Rx blood sugar diagnostic #300 each 05/21/20 12/26/20 Rx blood-glucose sensor #3 each 05/21/20 12/26/20 Rx insulin syringe-needle U-100 1 mL #300 each 07/08/20 12/26/20 Rx 29 gauge x 1/2 pen needle, diabetic 31 gauge x #100 each 07/08/20 12/26/20 Rx 3/16 simvastatin 10 mg tablet 10 mg PO BEDTIME #90 tab 07/09/20 12/26/20 Rx blood-glucose transmitter #1 each 09/29/20 12/26/20 Rx blood-glucose meter,continuous #1 each 12/01/20 12/26/20 Rx insulin aspart U-100 100 unit/mL 5 - 10 unit SUBCUT TID 90 Days #30 12/15/20 12/26/20 Rx subcutaneous solution ml insulin glargine [Lantus Solostar 60 unit SUBCUT DAILY 12/26/20 History U-100 Insulin] Allergies Allergy/AdvReac Type Severity Reaction Status Date / Time No Known Drug Allergies Allergy Verified 12/26/20 18:11 Review of Systems Review of Systems ROS: Yes All systems reviewed with the patient and are negative except as otherwise documented Constitutional Constitutional: Reports body ache(s), Reports fatigue and Reports poor appetite Eyes Eyes: Reports system reviewed and no additional complaints, except as documented ENT Ears, Nose, Mouth, and Throat: Yes hearing loss (Due to cerumen impaction in the right ear, and moderate cerumen buildup Lt ) Cardiovascular Cardiovascular: Reports system reviewed and no additional complaints, except as documented Respiratory Respiratory: Reports system reviewed and no additional complaints, except as documented Gastrointestinal Gastrointestinal: Reports abdominal pain and Reports loose stools Genitourinary Genitourinary: Reports system reviewed and no additional complaints, except as documented Musculoskeletal Musculoskeletal: Reports system reviewed and no additional complaints, except as documented Neurologic Neurologic: Reports system reviewed and no additional complaints, except as documented Endocrine Endocrine: Reports fatigue Hematologic/Lymphatic Hematologic/Lymphatic: Reports system reviewed and no additional complaints, except as documented Exam Vital Signs (past 8 hours): - 12/26/20 18:08 12/26/20 19:04 12/26/20 19:05 Temperature 98.6 F Pulse Rate 76 92 H 92 H Respiratory Rate 18 Blood Pressure 121/70 125/61 Pulse Oximetry 97 97 98 12/26/20 19:30 12/26/20 20:00 12/26/20 20:30 Temperature Pulse Rate 91 H 92 H 101 H Respiratory Rate 18 21 20 Blood Pressure 120/56 L 139/63 103/57 L Pulse Oximetry 94 93 94 Oxygen Delivery Method Room Air Narrative Exam Narrative: General: Patient is a well-developed, well-nourished male in no distress at this time, patient developed all over body shakes and diaphoresis during physical exam which after I finished my exam resolved within a few minutes, I had his blood sugar checked and it was approximately 101. HEENT: Normocephalic, atraumatic, extraocular muscles intact, oral pharynx is clear and mucous membranes are moist. Neck is supple and symmetric, trachea is midline, no adenopathy, no thyroid enlargement, nontender, no masses palpated. Negative for JVD Chest: Normal AP diameter and contour without kyphoscoliosis, no nasal flaring, retractions, or tachypneic labored Lungs: Auscultation of all lung silva are clear without adventitious sounds, wheezes, rhonchi, or rales. Cardio: S1 & S2 with regular rate and rhythm without murmur, rubs, or gallops, no carotid bruit, no cardiac pulsations present. Abdomen: Slight distension, upon initial inspection with the stethoscope patient had rebound tenderness further examination was negative for rebound tenderness, patient's pain was greatest in the right lower abdomen radiating to the right upper abd &side, pain diffusely distributed along lower abdomen to the left lower abdomen of less intensity, suprapubic tenderness, positive guarding, again negative true rebound, negative for organomegaly, or masses. Bowel sounds are present in all 4 quadrants hyperactive in the upper and lower right quadrants, hypoactive in the left quadrants, no CVA tenderness negative psoas, negative obturator sign, negative Lara sign, no pulsatile mass. Musculoskeletal: Muscle strength and tone are equal within normal limits, no deformity, crepitus, effusions, cyanosis, clubbing or edema present. Full range of motion intact radial and pedal pulses are normal. Skin: Warm dry and intact without rashes, ulcerations or petechiae. Patient developed temporary diaphoresis during exam which then quickly resolved within minutes to finish a exam. Neuro: Alert and orientated x3, strength is +5/5 in all extremities, sensation to touch intact, no gross deficits noted of cranial nerves. Psych: Patient has a well-kept appearance, appropriate affect, mental status attitude thought context and judgment are appropriate for age. Objective Labs Result Diagrams: 12/26/20 18:05 12/26/20 21:02 Labs: Laboratory Results - last 24 hr 12/26/20 12/26/20 12/26/20 18:05 18:05 18:05 WBC 7.7 RBC 5.53 Hgb 16.3 Hct 47.8 MCV 86.4 MCH 29.6 MCHC 34.2 RDW 14.3 Plt Count 206 Neut % (Auto) 56.0 Lymph % (Auto) 37.6 Brewster % (Auto) 4.6 Eos % (Auto) 1.3 L Baso % (Auto) 0.5 Neut # (Auto) 4300 Lymph # (Auto) 2900 Brewster # (Auto) 400 Eos # (Auto) 100 Baso # (Auto) 0 PT 11.2 INR 1.0 APTT 26 L D Sodium 141 Potassium 3.5 Chloride 100 Carbon Dioxide 30 BUN 14 Creatinine 0.79 Estimated GFR > 60.0 BUN/Creatinine Ratio 17.7 Glucose 131 H Lactate Calcium 9.5 Total Bilirubin 0.7 AST 21 ALT 17 Alkaline Phosphatase 59 Total Protein 6.8 Albumin 4.3 Globulin 2.5 Albumin/Globulin Ratio 1.7 Lipase 23 Procalcitonin SARS-CoV-2 (PCR) 12/26/20 12/26/20 12/26/20 18:55 18:56 18:56 WBC RBC Hgb Hct MCV MCH MCHC RDW Plt Count Neut % (Auto) Lymph % (Auto) Brewster % (Auto) Eos % (Auto) Baso % (Auto) Neut # (Auto) Lymph # (Auto) Brewster # (Auto) Eos # (Auto) Baso # (Auto) PT INR APTT Sodium Potassium Chloride Carbon Dioxide BUN Creatinine Estimated GFR BUN/Creatinine Ratio Glucose Lactate 3.5 H Calcium Total Bilirubin AST ALT Alkaline Phosphatase Total Protein Albumin Globulin Albumin/Globulin Ratio Lipase Procalcitonin 0.04 SARS-CoV-2 (PCR) Negative Assessment & Plan Assessment & Plan narrative: This patient requires acute care inpatient hospital management for Right upper/lower and left lower abdominal pain with diarrhea in the setting of insulin-dependent diabetes. after failing outpatient management. The patient is at much higher risk for medical and surgical compli cations because of insulin-dependent diabetes and history of a Phlegmon of infarcting tenia epiplocia surgery 09/04/[address] Aponte [facility], laparotomy and lysis of adhesions for small-bowel obstruction surgery on 04/24/[address] Marques [facility]. (patient notes this abdominal pain is similar to his abdominal pain that led to that surgery), patient developed a postop spontaneous bloody drainage and clot, then a draining ruptured hematoma from the midline incision requiring a wound VAC and wound care from March 2020 to July 2020. Wound cultures positive for Klebsiella, group B strep Viridians, and later Gram-negative bacilli. These factors increase the difficulty and complexity of medical and surgical interventions and increases the chances of poor outcomes such as morbidity and mortality and place the patient at risk for risk factors such as AAA rupture, bowel rupture, perforation, ischemia, ascending cholangitis, retroperitoneal hematoma, infectious enterocolitis, sarcoidosis, acute gastroenteritis, acute appendicitis. 1. Abdominal pain (Right upper/Lower Quad is the greatest intensity of pain, left lower quadrant abdomen lowest intensity), acute, present on admission, resulting and secondary to patient's previous abdominal surgeries. Patient is hemodynamically stable and in no distress at this time. Suspect infectious process with possible functional obstruction. -patient does have a stable acute abdomen, Dr. Gardner was consulted in ED by phone per Dr. Watson and agreed to consult on the patient tomorrow -modified Morales scale/for acute appendicitis: 3, patient's with a score of 0- 3 are unlikely to have appendicitis and should be evaluated for other possible diagnosis. vitals upon admit temp 98.6?, BP 120/56, HR 91, R 18, O2 saturation 94% on room air. Patient's CBC and CMP in ED were all within normal limits with the exception of a glucose of 131 and PTT of 26, lipase and procalcitonin were within normal limits lactate was 3.5. Repeat Lactate 3.2. ABD/Pelvis CT:Segmental bowel wall thickening involving multiple loops of distal small bowel as well as the ascending colon and sigmoid colon likely representing an infectious or inflammatory enterocolitis. This includes possible inflammatory bowel disease. Mild associated upstream dilatation of small-bowel loops in the lower abdomen likely represents a functional partial obstruction or ileus. Extensive fat stranding in the lower abdomen and pelvis with a small amount of fluid compatible with a peritonitis. Appendiceal wall thickening and enhancement is nonspecific but appears similar to the prior study and is suggestive of secondary reactive changes secondary to the regional peritonitis. No fluid distension. Rule out: infectious enterocolitis, sarcoidosis, acute gastroenteritis, peritonitis, adrenal insufficiency, acute appendicitis, irritable bowel syndrome, Crohn's disease -monitor for Risk factors: AAA rupture, bowel rupture, perforation, ischemia, ascending cholangitis, retroperitoneal hematoma -patient admitted to the medical floor, vital signs q.4 hours, intake and output monitored Q shift, weight measure daily, diet:NPO until evaluation by Dr. Gardner in the morning. Dr. Gardner consult ordered. -IV fluid:D% NS @100cc/hr -medications and IV fluids provided in the emergency room & imaging -labs ordered TSH, ferritin, iron profile, Cortisol, t-transgulutan, CRP, vitamin-D, vitamin B12, PT, PTT, lactic acid. Daily: CMP -medications, diagnostic ordered -consults ordered Dr. Gardner. -prevention vaccine recommended seasonal flu, COVID vaccine 2. Lactic acidosis, acute, present on admission, likely caused by patient's diarrhea secondary to insulin-dependent diabetes type 1.5 putting the patient at risk for DKA -#1 lactic acid 3.3, #2 lactic acid 3.2 -continue to monitor CMP & Lactic acid in am 2. Insulin-dependent diabetes type 1.5, acute on chronic, present on admission, uncontrolled - hemoglobin A1c 10.4 %. -Patient's blood sugar was 131 per lab in the ED, when he arrived on the floor his Accu-Chek BS was 53, patient was given 25 dextrose and D5 normal [id number] was hung. Patient received no insulin in ED and I held his p.m. Lantus dose. -patient admitted under diabetes protocol initial blood sugars were Q 15 minutes until stabilize than blood sugar checks q.4 hours, patient's blood sugars to be managed with low-dose sliding scale NovoLog-patient agrees with plan of care -holding patient's Lantus until blood sugars stabilize -discussed with patient the need to have a sick day medication plan- will provide patient with education handout 3. Hypo magnesium, acute, present on admission, likely secondary to dehydration from diarrhea - mag cris provided -repeat magnesium level q.day 4. Hyperlipidemia, chronic, control unknown, not present on admission -continue patient's simvastatin Code status: Full Surrogate/plan of care:Sister Angela SPAULDING PCR:Negative VTE prophylaxis:Lovenox 40 & SCD's Scores GCS Harvey coma scale eye opening: Spontaneous Nadia coma scale verbal response: Orientated Harvey coma scale motor response: Obey commands Nadia coma scale total score: 15
[2020-12-26 21:24] LABS: HEMOLYSIS 17 (0-50); Potassium 3.6 mmol/L (3.4-5.1)
[2020-12-26 21:27] LABS: Magnesium 1.4 mg/dL (1.6-2.3)
[2020-12-26 21:33] LABS: Lactate 2HR (Lactic Acid Rflx) 3.2 mmol/L (0.7-2.1)
[2020-12-26 21:46] LABS: Hemoglobin A1C% w Est Avg Glu 10.4 % (4.0-6.0)
[2020-12-26] MEDS: DEXTROSE 50 % IN WATER 25 GM/50 ML SYRINGE IV (21:52)
--- NOTE | 2020-12-26 21:55 | PC.NURSE ---
Pt with blood sugar 53. [facility] hospitalist informed and pt given protocol dextrose as per emar. IVF changed from LR to D5NS. Pt is awake and conversant.
[2020-12-26 22:06] LABS: Cortisol PM (After 5PM) 21.4 ug/dL (1.7-14.1)
[2020-12-26] MEDS: DEXTROSE 5%-0.9% NS 1,000 ML 150 ML IV (22:07)
--- NOTE | 2020-12-26 22:12 | PC.NURSE ---
Admission assessment completed by evening resident services coordinator, Vickie. Pt's blood sugar checked by [employer] for 53. Pt is diaphoretic and slightly shaky, but remains alert and awake and cognitively intact. Pt was given dextrose iv as per protocol. ZULEYKA Mathis made aware and in to see patient. D5NS @150 cc/hr infusing as ordered to right ac site without difficulty. Pt states abdominal pain improved over admission 2-12/03 with spikes up to 4 or 5. Pt reports right abdominal quadrants are the more tender. Oral care provided as pt NPO and pt was informed. Blood sugar rechecked for 111. Diaphoresis has resolved.
[2020-12-27] VITALS (14 sets, daily range): BP systolic 108–136; BP diastolic 66–79; PULSE 86–93; RESP 14–20; TEMP 36.3–37.6; O2SAT 94–98
[2020-12-27] MEDS: MAGNESIUM SULFATE 2 GM/50 ML PIGGYBACK IV (01:12)
[2020-12-27] MEDS: ACETAMINOPHEN 325 MG TABLET 975 MG PO (02:10)
[2020-12-27 05:34] LABS: Bacteria Urine None Seen; RBC Urine None Seen (0-5/HPF); WBC Urine None Seen (0-5/HPF)
[2020-12-27 05:35] LABS: Appearance Urine UA CLEAR; Bilirubin Urine UA NEGATIVE (NEGATIVE); Color Urine UA YELLOW; Glucose Urine UA 1+ g/dL (Negative); Ketones Urine UA NEGATIVE (NEGATIVE); Leukocyte Esterase Urine UA NEGATIVE (NEGATIVE); Nitrite Urine UA NEGATIVE (Negative); Occult Blood Urine UA NEGATIVE (Negative); Protein Urine UA NEGATIVE (Negative); Urobilinogen Urine UA 0.2 E.U./dL (0.2)
[2020-12-27 05:40] LABS: INR 1.1 (0.9-1.3); Prothrombin Time 12.6 SECONDS (10.1-12.7)
[2020-12-27 05:41] LABS: HEMOLYSIS < 15 (0-50)
[2020-12-27 05:43] LABS: HEMOLYSIS < 15 (0-50); PTT Partial Thromboplastin Tim 27 SECONDS (26.4-36.2)
[2020-12-27 05:45] LABS: Magnesium 1.9 mg/dL (1.6-2.3)
[2020-12-27 05:45] LABS: Culture Indicated Urine Cult Not Indicated; Mucus Urine 1+ (Negative)
[2020-12-27 05:46] LABS: BUN Creatinine Ratio 18.5 (6-22); Blood Urea Nitrogen 12 mg/dL (9-20); Calcium 8.2 mg/dL (8.4-10.2); Carbon Dioxide 29 mmol/L (22-32); Chloride 99 mmol/L (98-107); Cholesterol 155 mg/dL (140-199); Estimated Glomerular Filt Rate > 60.0 mL/min (>60); Glucose 245 mg/dL (70-100); HDL Cholesterol 33 mg/dL (40-60); LDL Cholesterol Calculated 102 mg/dL (<100); Sodium 134 mmol/L (137-145); Triglycerides 98 mg/dL (35-150)
[2020-12-27 05:48] LABS: Lactate (Lactic Acid) 1.8 mmol/L (0.7-2.1)
[2020-12-27 05:58] LABS: Total Iron Binding Capacity 235 ug/dL (261-462); Transferrin 187 mg/dL (206-381)
[2020-12-27 06:20] LABS: TSH w/ Reflex to FT4 0.41 uIU/mL (0.47-4.68)
[2020-12-27 06:21] LABS: Ferritin 97 ng/mL (18-464)
[2020-12-27 06:29] LABS: Vitamin D 25 Hydroxy (D3) 18.8 ng/mL (30.0-100.0)
[2020-12-27 06:38] LABS: Vitamin B12 Reflex MMA if <400 379 pg/mL (239-931)
[2020-12-27] MEDS: DEXTROSE 5%-0.9% NS 1,000 ML 150 ML IV ×2 (07:09→19:56)
[2020-12-27 07:12] LABS: Free T4, Direct Thyroxine 0.88 ng/dL (0.78-2.19)
[2020-12-27] MEDS: metroNIDAZOLE 500 MG/100 ML PIGGYBACK 100 MG IV ×2 (09:51→17:40)
[2020-12-27] MEDS: ENOXAPARIN 40 MG/0.4 ML SYRINGE SUBCUT (09:51)
[2020-12-27] MEDS: INFLUENZA VACCINE 0.5 ML SYRINGE IM (09:52)
[2020-12-27] MEDS: INSULIN ASPART 100 UNIT/ML INSULN PEN SUBCUT ×4 (09:53→20:41)
--- NOTE | 2020-12-27 11:25 | P.PN_ITS ---
Subjective Subjective Date Patient Seen: 12/27/20 Time Patient Seen: 11:26 Interval history: Sanjiv Torres is a 43-year-old male with history of uncontrolled likely type 2 diabetes, insulin dependent, hyperlipidemia and recent complex surgical history including an inflamed epiploic appendage which was later complicated by a small bowel obstruction who was admitted for abdominal pain of uncertain etiology. His CT scan shows bowel wall thickening involving multiple loops of distal small bowel as well as ascending and sigmoid colon, some sort of mild partial obstruction, and extensive fat stranding in the lower abdomen consistent with peritonitis, and appendiceal wall thickening and enhancement that is stated is nonspecific. Patient states that this presentation is very similar to his previous one where he was found to have an epiploic appendage. His abdominal pain has improved today with initial conservative management including antibiotic therapy with ceftriaxone and Flagyl, and NPO status. Will await surgical consultation for further recommendations. Exam Vital Signs (past 8 hours): - 12/27/20 04:32 12/27/20 05:00 12/27/20 09:00 Temperature 98.3 F 97.3 F L Pulse Rate 92 H 88 Respiratory Rate 18 14 Blood Pressure 121/66 110/66 Pulse Oximetry 97 94 94 12/27/20 11:18 Temperature Pulse Rate Respiratory Rate Blood Pressure Pulse Oximetry 98 Oxygen Delivery Method Room Air Oxygen Flow Rate 0 Narrative Exam Narrative: GENERAL APPEARANCE: Well developed, well nourished, in no acute distress, but does appear mildly uncomfortable with movement. SKIN: Inspection of the skin reveals no rashes, ulcerations or petechiae. HEENT: Normocephalic atraumatic, extraocular muscles are intact, oropharynx is clear and mucous membranes are moist, neck is supple without adenopathy NECK: Supple and symmetric. There was no thyroid enlargement, and no tenderness, or masses were felt. CHEST: Normal AP diameter and normal contour without any kyphoscoliosis. LUNGS: Auscultation of the lungs revealed no wheezes, rhonchi, or rales. CARDIOVASCULAR: There was a regular rate and rhythm without any murmurs, gallops, rubs. Peripheral pulses were 2+ and symmetric. ABDOMEN: Soft, with some distension, diffuse abdominal tenderness but more prominent in the right lower quadrant. There is no guarding. MUSCULOSKELETAL: There was no tenderness or effusions noted. Muscle strength and tone were normal. EXTREMITIES: No cyanosis, clubbing or edema. NEUROLOGIC: Alert and oriented x 3. Normal affect. Strength is +5/5 in the Upper Extremities and Lower Extremities Bilaterally. Objective Imaging CT scan - abdomen: Radiologist's impression: PROCEDURE: CT ABDOMEN PELVIS W CON INDICATIONS: diarrhea x2d, abd pain, hernia, hx bowel obstruction TECHNIQUE: After the administration of intravenous contrast, 5 mm thick sections acquired from the diaphragm to the symphysis. 5 mm coronal and sagittal reformats were acquired. For radiation dose reduction, the following was used: automated exposure control, adjustment of mA and/or kV according to patient size. COMPARISON: [facility], CT, CT ABDOMEN PELVIS W CON, 04/24/2020, 12:42. FINDINGS: Image quality: Excellent. ABDOMEN: Lung bases: There is mild atelectasis or scarring in the lung bases. Heart size is normal. There is a small hiatal hernia. Solid organs: Evaluation of the liver demonstrates no focal hepatic lesions. The gallbladder appears within normal limits without calcified gallstones. Biliary system is non-dilated. Pancreas enhances normally. No peripancreatic fat stranding or fluid collections. No pancreatic duct dilatation. The spleen is normal in size. No adrenal nodules. Kidneys demonstrate no hydronephrosis. Peritoneum and bowel: There is prominent gastric distention with mild wall thickening in the gastric antrum. Multiple segments of bowel wall thickening with associated fat stranding are demonstrated in the lower abdomen and pelvis involving the distal small bowel as well as the ascending and sigmoid colon. There is associated fat stranding and a small amount of free fluid compatible with a peritonitis. Mild segmental dilatation of a few small bowel loops is demonstrated in the lower abdomen, measuring up to 3.1 cm with scattered air-fluid levels suggestive of a functional obstruction or ileus. The appendix is thick-walled, measuring up to 1.1 cm in diameter with a small amount of intraluminal fluid. There are surgical sutures along the cecum reportedly from prior resection of an epiploic appendage. A small amount of free fluid is present in the pelvis. No intraperitoneal free air. Nodes and vessels: No retroperitoneal or mesenteric adenopathy by size criteria. Aorta and inferior vena cava are normal in size. Miscellaneous: No ventral hernias. PELVIS: Genitourinary: There is mild concentric bladder wall thickening. Miscellaneous: No inguinal hernias or adenopathy. Bones: No suspicious bony lesions. No vertebral body compression fractures. IMPRESSION: 1. Segmental bowel wall thickening involving multiple loops of distal small bowel as well as the ascending colon and sigmoid colon likely representing an infectious or inflammatory enterocolitis. This includes possible inflammatory bowel disease. 2. Mild associated upstream dilatation of small-bowel loops in the lower abdomen likely represents a functional partial obstruction or ileus. 3. Extensive fat stranding in the lower abdomen and pelvis with a small amount of fluid compatible with a peritonitis. 4. Appendiceal wall thickening and enhancement is nonspecific but appears similar to the prior study and is suggestive of secondary reactive changes secondary to the regional peritonitis. No fluid distension. Findings discussed with Dr. Watson on 12/26/2020 at 6:53 p.m.. Labs Result Diagrams: 12/26/20 18:05 12/27/20 04:55 Labs: Laboratory Results - last 24 hr 12/26/20 12/26/20 12/26/20 18:05 18:05 18:05 WBC 7.7 RBC 5.53 Hgb 16.3 Hct 47.8 MCV 86.4 MCH 29.6 MCHC 34.2 RDW 14.3 Plt Count 206 Neut % (Auto) 56.0 Lymph % (Auto) 37.6 [place] % (Auto) 4.6 Eos % (Auto) 1.3 L Baso % (Auto) 0.5 Neut # (Auto) 4300 Lymph # (Auto) 2900 [place] # (Auto) 400 Eos # (Auto) 100 Baso # (Auto) 0 PT 11.2 INR 1.0 APTT 26 L D Sodium 141 Potassium 3.5 Chloride 100 Carbon Dioxide 30 BUN 14 Creatinine 0.79 Estimated GFR > 60.0 BUN/Creatinine Ratio 17.7 Glucose 131 H Hemoglobin A1c Lactate Calcium 9.5 Magnesium TIBC Transferrin Ferritin Total Bilirubin 0.7 AST 21 ALT 17 Alkaline Phosphatase 59 Total Protein 6.8 Albumin 4.3 Globulin 2.5 Albumin/Globulin Ratio 1.7 Triglycerides Cholesterol LDL Cholesterol, Calc HDL Cholesterol Lipase 23 Vitamin B12 25-OH Vitamin D Total Procalcitonin TSH Free T4 Cortisol PM Sample Urine Color Urine Appearance Urine pH Ur Specific [place] Urine Protein Urine Glucose (UA) Urine Ketones Urine Occult Blood Urine Nitrate Urine Bilirubin Urine Urobilinogen Ur Leukocyte Esterase Urine RBC Urine WBC Urine Bacteria Urine Mucus Ur Culture Indicated? SARS-CoV-2 (PCR) 12/26/20 12/26/20 12/26/20 18:55 18:56 18:56 WBC RBC Hgb Hct MCV MCH MCHC RDW Plt Count Neut % (Auto) Lymph % (Auto) [place] % (Auto) Eos % (Auto) Baso % (Auto) Neut # (Auto) Lymph # (Auto) [place] # (Auto) Eos # (Auto) Baso # (Auto) PT INR APTT Sodium Potassium Chloride Carbon Dioxide BUN Creatinine Estimated GFR BUN/Creatinine Ratio Glucose Hemoglobin A1c Lactate 3.5 H Calcium Magnesium TIBC Transferrin Ferritin Total Bilirubin AST ALT Alkaline Phosphatase Total Protein Albumin Globulin Albumin/Globulin Ratio Triglycerides Cholesterol LDL Cholesterol, Calc HDL Cholesterol Lipase Vitamin B12 25-OH Vitamin D Total Procalcitonin 0.04 TSH Free T4 Cortisol PM Sample Urine Color Urine Appearance Urine pH Ur Specific [place] Urine Protein Urine Glucose (UA) Urine Ketones Urine Occult Blood Urine Nitrate Urine Bilirubin Urine Urobilinogen Ur Leukocyte Esterase Urine RBC Urine WBC Urine Bacteria Urine Mucus Ur Culture Indicated? SARS-CoV-2 (PCR) Negative 12/26/20 12/26/20 12/26/20 21:02 21:02 21:02 WBC RBC Hgb Hct MCV MCH MCHC RDW Plt Count Neut % (Auto) Lymph % (Auto) [place] % (Auto) Eos % (Auto) Baso % (Auto) Neut # (Auto) Lymph # (Auto) [place] # (Auto) Eos # (Auto) Baso # (Auto) PT INR APTT Sodium Potassium 3.6 Chloride Carbon Dioxide BUN Creatinine Estimated GFR BUN/Creatinine Ratio Glucose Hemoglobin A1c 10.4 H Lactate Calcium Magnesium 1.4 L TIBC Transferrin Ferritin Total Bilirubin AST ALT Alkaline Phosphatase Total Protein Albumin Globulin Albumin/Globulin Ratio Triglycerides Cholesterol LDL Cholesterol, Calc HDL Cholesterol Lipase Vitamin B12 25-OH Vitamin D Total Procalcitonin TSH Free T4 Cortisol PM Sample Urine Color Urine Appearance Urine pH Ur Specific [place] Urine Protein Urine Glucose (UA) Urine Ketones Urine Occult Blood Urine Nitrate Urine Bilirubin Urine Urobilinogen Ur Leukocyte Esterase Urine RBC Urine WBC Urine Bacteria Urine Mucus Ur Culture Indicated? SARS-CoV-2 (PCR) 12/26/20 12/26/20 12/27/20 21:02 21:12 04:55 WBC RBC Hgb Hct MCV MCH MCHC RDW Plt Count Neut % (Auto) Lymph % (Auto) [place] % (Auto) Eos % (Auto) Baso % (Auto) Neut # (Auto) Lymph # (Auto) [place] # (Auto) Eos # (Auto) Baso # (Auto) PT 12.6 INR 1.1 APTT 27 Sodium Potassium Chloride Carbon Dioxide BUN Creatinine Estimated GFR BUN/Creatinine Ratio Glucose Hemoglobin A1c Lactate 3.2 H Calcium Magnesium TIBC Transferrin Ferritin Total Bilirubin AST ALT Alkaline Phosphatase Total Protein Albumin Globulin Albumin/Globulin Ratio Triglycerides Cholesterol LDL Cholesterol, Calc HDL Cholesterol Lipase Vitamin B12 25-OH Vitamin D Total Procalcitonin TSH Free T4 Cortisol PM Sample 21.4 H Urine Color Urine Appearance Urine pH Ur Specific [place] Urine Protein Urine Glucose (UA) Urine Ketones Urine Occult Blood Urine Nitrate Urine Bilirubin Urine Urobilinogen Ur Leukocyte Esterase Urine RBC Urine WBC Urine Bacteria Urine Mucus Ur Culture Indicated? SARS-CoV-2 (PCR) 12/27/20 12/27/20 12/27/20 04:55 04:55 04:55 WBC RBC Hgb Hct MCV MCH MCHC RDW Plt Count Neut % (Auto) Lymph % (Auto) [place] % (Auto) Eos % (Auto) Baso % (Auto) Neut # (Auto) Lymph # (Auto) [place] # (Auto) Eos # (Auto) Baso # (Auto) PT INR APTT Sodium 134 L Potassium 4.0 Chloride 99 Carbon Dioxide 29 BUN 12 Creatinine 0.65 L Estimated GFR > 60.0 BUN/Creatinine Ratio 18.5 Glucose 245 H D Hemoglobin A1c Lactate Calcium 8.2 L Magnesium TIBC 235 L Transferrin 187 L Ferritin 97 Total Bilirubin AST ALT Alkaline Phosphatase Total Protein Albumin Globulin Albumin/Globulin Ratio Triglycerides 98 Cholesterol 155 LDL Cholesterol, Calc 102 H HDL Cholesterol 33 L Lipase Vitamin B12 379 25-OH Vitamin D Total 18.8 L Procalcitonin TSH 0.41 L Free T4 0.88 Cortisol PM Sample Urine Color Urine Appearance Urine pH Ur Specific [place] Urine Protein Urine Glucose (UA) Urine Ketones Urine Occult Blood Urine Nitrate Urine Bilirubin Urine Urobilinogen Ur Leukocyte Esterase Urine RBC Urine WBC Urine Bacteria Urine Mucus Ur Culture Indicated? SARS-CoV-2 (PCR) 12/27/20 12/27/20 12/27/20 04:55 04:55 05:30 WBC RBC Hgb Hct MCV MCH MCHC RDW Plt Count Neut % (Auto) Lymph % (Auto) [place] % (Auto) Eos % (Auto) Baso % (Auto) Neut # (Auto) Lymph # (Auto) [place] # (Auto) Eos # (Auto) Baso # (Auto) PT INR APTT Sodium Potassium Chloride Carbon Dioxide BUN Creatinine Estimated GFR BUN/Creatinine Ratio Glucose Hemoglobin A1c Lactate 1.8 Calcium Magnesium 1.9 TIBC Transferrin Ferritin Total Bilirubin AST ALT Alkaline Phosphatase Total Protein Albumin Globulin Albumin/Globulin Ratio Triglycerides Cholesterol LDL Cholesterol, Calc HDL Cholesterol Lipase Vitamin B12 25-OH Vitamin D Total Procalcitonin TSH Free T4 Cortisol PM Sample Urine Color Yellow Urine Appearance Clear Urine pH 5.0 Ur Specific [place] 1.010 Urine Protein Negative Urine Glucose (UA) 1+ H Urine Ketones Negative Urine Occult Blood Negative Urine Nitrate Negative Urine Bilirubin Negative Urine Urobilinogen 0.2 Ur Leukocyte Esterase Negative Urine RBC None seen Urine WBC None seen Urine Bacteria None seen Urine Mucus 1+ H Ur Culture Indicated? Cult not indicated SARS-CoV-2 (PCR) [facility] Medical History (Updated 12/26/20 @ 21:33 by DARIANA Engel-GEO) Abdominal hernia History of small bowel obstruction Insulin dependent diabetes mellitus Surgical History (Updated 12/26/20 @ 21:32 by JEFFRY Engel) History of abdominal surgery Family History (Updated 12/27/20 @ 03:56 by JEFFRY Engel) Grandmother Heart attack Stroke Mother Blind Social History household members: family Smoking Status: Never smoker Assessment & Plan Assessment & Plan narrative: Sanjiv Torres is a 43-year-old male with history of uncontrolled likely type 2 diabetes, insulin dependent, hyperlipidemia and recent complex surgical history including an inflamed epiploic appendage which was later complicated by a small bowel obstruction who was admitted for abdominal pain of uncertain etiology. CT scan shows a variety of potential causes including possibly infectious or inflammatory enterocolitis, peritonitis, or appendicitis 1. Abdominal pain, acute, present on admission -His CT scan shows bowel wall thickening involving multiple loops of distal small bowel as well as ascending and sigmoid colon, some sort of mild partial obstruction, and extensive fat stranding in the lower abdomen consistent with peritonitis, and appendiceal wall thickening and enhancement that is stated as nonspecific. -he is without leukocytosis or fever since admission. -Etiology is not entirely clear at this time. Potential causes include possibly infectious or inflammatory/autoimmune enterocolitis, peritonitis, or appendicitis. However, his symptoms are improving with initial conservative therapy including bowel rest, ceftriaxone, and Flagyl. Will continue his antibiotics and NPO status pending surgery consultation. -GI panel has been ordered. 2. Lactic acidosis, acute, present on admission, likely caused by dehydration secondary to patient's diarrhea secondary to above intra-abdominal pathology -initial lactate was elevated at 3.5, has now improved to 1.8 with fluid resuscitation. Will stop trending lactate at this time. 3. 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 -patient takes Lantus 60 units nightly at home. He had episodes of hypoglycemia as he did take his Lantus but was not eating. His glucose has improved to 245. Will resume Lantus at 10 units twice daily while NPO, and adjust as needed to avoid the possibility of DKA. -continue correctional short-acting insulin 4. Hypo magnesium, acute, present on admission, likely secondary to dehydration from diarrhea -magnesium repleted given this was 1.4 on admission. Now improved to 1.9. 5. Hyperlipidemia, chronic, control unknown, not present on admission -continue patient's simvastatin when tolerating PO intake Code status: Full Surrogate/plan of care:Sister Angela SPAULDING PCR:Negative VTE prophylaxis:Lovenox, but hold pending surgical evaluation.
--- NOTE | 2020-12-27 12:15 | P.CONS_ITS ---
History of Present Illness Consult details Date Patient Seen: 12/27/20 Time Patient Seen: 12:16 Chief complaint: right side abd pain for couple days. Reason for consult: Abdominal pain Requesting provider: Rebekah Watson Narrative: The patient is a gentleman who has happened ectomy quad incision about 2 years ago. It was removed at the time was inflamed/necrotic epiploica. He was admitted last March and underwent exploration for small bowel obstruction. He had a long midline incision made and apparently had an adhesiolysis. Postoperatively he says he developed blood clot in the wound and he has a hernia in his upper incision. He developed fairly sudden onset of pain in his abdomen yesterday that was not dissimilar to the pain he had with his bowel obstruction. He had had 2 days of diarrhea prior to the onset of this pain and in fact had a bowel movement just prior to it occurring. He has not had a bowel movements and yesterday nor passed flatus since yesterday. He has not been vomiting and he is not anorexic. The pain this morning is much better than the pain he had yesterday. Meds Home Medications and Allergies Home Medications Medication Instructions Recorded Confirmed Type acetaminophen [Tylenol] 650 mg PO QID PRN #60 cap 04/28/20 12/26/20 Rx blood sugar diagnostic #300 each 05/21/20 12/26/20 Rx blood-glucose sensor #3 each 05/21/20 12/26/20 Rx insulin syringe-needle U-100 1 mL #300 each 07/08/20 12/26/20 Rx 29 gauge x 1/2 pen needle, diabetic 31 gauge x #100 each 07/08/20 12/26/20 Rx 3/16 simvastatin 10 mg tablet 10 mg PO BEDTIME #90 tab 07/09/20 12/26/20 Rx blood-glucose transmitter #1 each 09/29/20 12/26/20 Rx blood-glucose meter,continuous #1 each 12/01/20 12/26/20 Rx insulin aspart U-100 100 unit/mL 5 - 10 unit SUBCUT TID 90 Days #30 12/15/2011/16 Rx subcutaneous solution ml insulin glargine [Lantus Solostar 60 unit SUBCUT DAILY 12/26/20 12/27/20 History U-100 Insulin] Allergies Allergy/AdvReac Type Severity Reaction Status Date / Time No Known Drug Allergies Allergy Verified 12/26/20 18:11 Review of Systems Review of Systems Narrative: No chest pain. No heart issues. No cough or cold. No asthma. COVID negative. He is a diabetic. His sugar was low yesterday and he was begun on D5 overnight. Takes medicine for elevated lipids. No seizures or blackouts. Exam Vital Signs (past 8 hours): - 12/27/20 04:32 12/27/20 05:00 12/27/20 09:00 Temperature 98.3 F 97.3 F L Pulse Rate 92 H 88 Respiratory Rate 18 14 Blood Pressure 121/66 110/66 Pulse Oximetry 97 94 94 12/27/20 11:18 Temperature Pulse Rate Respiratory Rate Blood Pressure Pulse Oximetry 98 Oxygen Delivery Method Room Air Oxygen Flow Rate 0 Narrative Exam Narrative: Cooperative gentleman in no apparent distress. His eyes are nonicteric. Lungs are clear to auscultation no rales or rhonchi could percussion heart regular rate and rhythm no murmur gallop no heave lift or thrill abdomen is hyperactive bowel sounds. Normal pitch. Mildly protuberant. Patient has a long midline scar in right lower quadrant scar. This scar above the umbilicus is brought and there appears to be a hernia probably occupying the whole upper abdomen. Either that or he has very attenuated fascia and has a large diastasis. Patient has a soft upper abdomen. Lower abdomen is tender to palpation. No guarding. Patient is alert and oriented x3. Speech rate and content are appropriate. Affect is appropriate. Objective Imaging CT scan - abdomen: My impression: Reviewed CT and report. Patient appears to have a large diastasis enteritis upper abdomen. I am not sure there is a fascial defect. There are inflammatory changes in the mesentery. There are surgical changes in the right lower quadrant. There are some areas of small bowel thickening. Stomach is distended. No real evidence of bowel obstruction however Labs Result Diagrams: 12/26/20 18:05 12/27/20 04:55 Labs: Laboratory Results - last 24 hr 12/26/20 12/26/20 12/26/20 18:05 18:05 18:05 WBC 7.7 RBC 5.53 Hgb 16.3 Hct 47.8 MCV 86.4 MCH 29.6 MCHC 34.2 RDW 14.3 Plt Count 206 Neut % (Auto) 56.0 Lymph % (Auto) 37.6 [place] % (Auto) 4.6 Eos % (Auto) 1.3 L Baso % (Auto) 0.5 Neut # (Auto) 4300 Lymph # (Auto) 2900 [place] # (Auto) 400 Eos # (Auto) 100 Baso # (Auto) 0 PT 11.2 INR 1.0 APTT 26 L D Sodium 141 Potassium 3.5 Chloride 100 Carbon Dioxide 30 BUN 14 Creatinine 0.79 Estimated GFR > 60.0 BUN/Creatinine Ratio 17.7 Glucose 131 H Hemoglobin A1c Lactate Calcium 9.5 Magnesium TIBC Transferrin Ferritin Total Bilirubin 0.7 AST 21 ALT 17 Alkaline Phosphatase 59 Total Protein 6.8 Albumin 4.3 Globulin 2.5 Albumin/Globulin Ratio 1.7 Triglycerides Cholesterol LDL Cholesterol, Calc HDL Cholesterol Lipase 23 Vitamin B12 25-OH Vitamin D Total Procalcitonin TSH Free T4 Cortisol PM Sample Urine Color Urine Appearance Urine pH Ur Specific [place] Urine Protein Urine Glucose (UA) Urine Ketones Urine Occult Blood Urine Nitrate Urine Bilirubin Urine Urobilinogen Ur Leukocyte Esterase Urine RBC Urine WBC Urine Bacteria Urine Mucus Ur Culture Indicated? SARS-CoV-2 (PCR) 12/26/20 12/26/20 12/26/20 18:55 18:56 18:56 WBC RBC Hgb Hct MCV MCH MCHC RDW Plt Count Neut % (Auto) Lymph % (Auto) [place] % (Auto) Eos % (Auto) Baso % (Auto) Neut # (Auto) Lymph # (Auto) [place] # (Auto) Eos # (Auto) Baso # (Auto) PT INR APTT Sodium Potassium Chloride Carbon Dioxide BUN Creatinine Estimated GFR BUN/Creatinine Ratio Glucose Hemoglobin A1c Lactate 3.5 H Calcium Magnesium TIBC Transferrin Ferritin Total Bilirubin AST ALT Alkaline Phosphatase Total Protein Albumin Globulin Albumin/Globulin Ratio Triglycerides Cholesterol LDL Cholesterol, Calc HDL Cholesterol Lipase Vitamin B12 25-OH Vitamin D Total Procalcitonin 0.04 TSH Free T4 Cortisol PM Sample Urine Color Urine Appearance Urine pH Ur Specific [place] Urine Protein Urine Glucose (UA) Urine Ketones Urine Occult Blood Urine Nitrate Urine Bilirubin Urine Urobilinogen Ur Leukocyte Esterase Urine RBC Urine WBC Urine Bacteria Urine Mucus Ur Culture Indicated? SARS-CoV-2 (PCR) Negative 12/26/20 12/26/20 12/26/20 21:02 21:02 21:02 WBC RBC Hgb Hct MCV MCH MCHC RDW Plt Count Neut % (Auto) Lymph % (Auto) [place] % (Auto) Eos % (Auto) Baso % (Auto) Neut # (Auto) Lymph # (Auto) [place] # (Auto) Eos # (Auto) Baso # (Auto) PT INR APTT Sodium Potassium 3.6 Chloride Carbon Dioxide BUN Creatinine Estimated GFR BUN/Creatinine Ratio Glucose Hemoglobin A1c 10.4 H Lactate Calcium Magnesium 1.4 L TIBC Transferrin Ferritin Total Bilirubin AST ALT Alkaline Phosphatase Total Protein Albumin Globulin Albumin/Globulin Ratio Triglycerides Cholesterol LDL Cholesterol, Calc HDL Cholesterol Lipase Vitamin B12 25-OH Vitamin D Total Procalcitonin TSH Free T4 Cortisol PM Sample Urine Color Urine Appearance Urine pH Ur Specific [place] Urine Protein Urine Glucose (UA) Urine Ketones Urine Occult Blood Urine Nitrate Urine Bilirubin Urine Urobilinogen Ur Leukocyte Esterase Urine RBC Urine WBC Urine Bacteria Urine Mucus Ur Culture Indicated? SARS-CoV-2 (PCR) 12/26/20 12/26/20 12/27/20 21:02 21:12 04:55 WBC RBC Hgb Hct MCV MCH MCHC RDW Plt Count Neut % (Auto) Lymph % (Auto) [place] % (Auto) Eos % (Auto) Baso % (Auto) Neut # (Auto) Lymph # (Auto) [place] # (Auto) Eos # (Auto) Baso # (Auto) PT 12.6 INR 1.1 APTT 27 Sodium Potassium Chloride Carbon Dioxide BUN Creatinine Estimated GFR BUN/Creatinine Ratio Glucose Hemoglobin A1c Lactate 3.2 H Calcium Magnesium TIBC Transferrin Ferritin Total Bilirubin AST ALT Alkaline Phosphatase Total Protein Albumin Globulin Albumin/Globulin Ratio Triglycerides Cholesterol LDL Cholesterol, Calc HDL Cholesterol Lipase Vitamin B12 25-OH Vitamin D Total Procalcitonin TSH Free T4 Cortisol PM Sample 21.4 H Urine Color Urine Appearance Urine pH Ur Specific [place] Urine Protein Urine Glucose (UA) Urine Ketones Urine Occult Blood Urine Nitrate Urine Bilirubin Urine Urobilinogen Ur Leukocyte Esterase Urine RBC Urine WBC Urine Bacteria Urine Mucus Ur Culture Indicated? SARS-CoV-2 (PCR) 12/27/20 12/27/20 12/27/20 04:55 04:55 04:55 WBC RBC Hgb Hct MCV MCH MCHC RDW Plt Count Neut % (Auto) Lymph % (Auto) [place] % (Auto) Eos % (Auto) Baso % (Auto) Neut # (Auto) Lymph # (Auto) [place] # (Auto) Eos # (Auto) Baso # (Auto) PT INR APTT Sodium 134 L Potassium 4.0 Chloride 99 Carbon Dioxide 29 BUN 12 Creatinine 0.65 L Estimated GFR > 60.0 BUN/Creatinine Ratio 18.5 Glucose 245 H D Hemoglobin A1c Lactate Calcium 8.2 L Magnesium TIBC 235 L Transferrin 187 L Ferritin 97 Total Bilirubin AST ALT Alkaline Phosphatase Total Protein Albumin Globulin Albumin/Globulin Ratio Triglycerides 98 Cholesterol 155 LDL Cholesterol, Calc 102 H HDL Cholesterol 33 L Lipase Vitamin B12 379 25-OH Vitamin D Total 18.8 L Procalcitonin TSH 0.41 L Free T4 0.88 Cortisol PM Sample Urine Color Urine Appearance Urine pH Ur Specific [place] Urine Protein Urine Glucose (UA) Urine Ketones Urine Occult Blood Urine Nitrate Urine Bilirubin Urine Urobilinogen Ur Leukocyte Esterase Urine RBC Urine WBC Urine Bacteria Urine Mucus Ur Culture Indicated? SARS-CoV-2 (PCR) 12/27/20 12/27/20 12/27/20 04:55 04:55 05:30 WBC RBC Hgb Hct MCV MCH MCHC RDW Plt Count Neut % (Auto) Lymph % (Auto) [place] % (Auto) Eos % (Auto) Baso % (Auto) Neut # (Auto) Lymph # (Auto) [place] # (Auto) Eos # (Auto) Baso # (Auto) PT INR APTT Sodium Potassium Chloride Carbon Dioxide BUN Creatinine Estimated GFR BUN/Creatinine Ratio Glucose Hemoglobin A1c Lactate 1.8 Calcium Magnesium 1.9 TIBC Transferrin Ferritin Total Bilirubin AST ALT Alkaline Phosphatase Total Protein Albumin Globulin Albumin/Globulin Ratio Triglycerides Cholesterol LDL Cholesterol, Calc HDL Cholesterol Lipase Vitamin B12 25-OH Vitamin D Total Procalcitonin TSH Free T4 Cortisol PM Sample Urine Color Yellow Urine Appearance Clear Urine pH 5.0 Ur Specific [place] 1.010 Urine Protein Negative Urine Glucose (UA) 1+ H Urine Ketones Negative Urine Occult Blood Negative Urine Nitrate Negative Urine Bilirubin Negative Urine Urobilinogen 0.2 Ur Leukocyte Esterase Negative Urine RBC None seen Urine WBC None seen Urine Bacteria None seen Urine Mucus 1+ H Ur Culture Indicated? Cult not indicated SARS-CoV-2 (PCR) Assessment & Plan Assessment & Plan narrative: Cause of patient's pain is not clear. This did not seem to be bacterial infection related based on a normal CBC and differential. His procalcitonin is normal. Urine shows no signs of infection. His glucose was actually low instead of high. It is not quite clear to me what is causing his symptomatology. I do not really see evidence of bowel obstruction. It is possible he has colitis. It is also possible he has gastroenteritis of some form which might cause inconsistent thickening of his small bowel and large bowel. It would be ideal if we can get stool but he has not had any bowel movements since arriving. I would continue the broad-spectrum antibiotics which are already ordered. Encourage the patient to ambulate. Control is glucose which is being done. Will follow with you. At this time I do not believe he needs surgical intervention based on either his history physical exam or laboratory and x-ray evaluation.
[2020-12-27] MEDS: INSULIN GLARGINE 100 UNIT/ML 3ML PEN 10 UNIT SUBCUT ×2 (12:30→20:41)
--- NOTE | 2020-12-27 15:13 | CM.IDA ---
Addendum entered by SANJUANA Lanier 12/28/20 13:03: Met w/patient this morning, introduced role. Patient lives w/his sister, her bf and their one yo dtr, gma has recently moved in to assist w/childcare for 1 yo. Patient feels his home environment is working well. Patient understands he might be here an additional 24-72 hrs for IVF, IV abx and conservative management for abd pain, non surgical at this time. Patient expects no needs when medically cleared for home, will follow closely. ASHLEY Original Note: Initial DCP Assessment Note Patient is a 45 yo male, resident of [place]. Patient presents w/days of abd pain and diarrhea x2 days. PMH includes insulin dependent diabetes, abd hernia and h/o SBO PCP: Aubrie Greene Payer: [employer] Reviewed chart. Unable to complete bedside assessment d/t caseload demands. Dr Gardner has consulted and has recommended continuing broad spectrum abx and encourage ambulation, no surgery indicated at this time. According to chart review, patient expected to return home once medically cleared, no needs expected from this [employer]. Will follow closely in case any DC needs or concerns arise. ASHLEY
--- NOTE | 2020-12-27 15:53 | PC.NURSE ---
Pt reports mild pain to abdomen; BTs hypoactive; IV fluids infusing; LS clear; patient encouraged to deep breath; SBA to bathroom; Tele SR BBB; call light within reach
[2020-12-27] MEDS: ACETAMINOPHEN 325 MG TABLET 650 MG PO (16:19)
[2020-12-27] MEDS: CEFTRIAXONE 2 GM/50 ML FROZ.PIGGY IV (20:43)
[2020-12-27] MEDS: SIMVASTATIN 20 MG TABLET 10 MG PO (20:43)
[2020-12-27] MEDS: MORPHINE 4 MG/ML INJ IV (20:49)
[2020-12-28] VITALS (10 sets, daily range): BP systolic 120–149; BP diastolic 69–82; PULSE 91–99; RESP 14–18; TEMP 36.8–37.2; O2SAT 94–97
[2020-12-28] MEDS: metroNIDAZOLE 500 MG/100 ML PIGGYBACK 100 MG IV ×3 (00:13→16:33)
[2020-12-28 05:35] LABS: Add Manual Diff / Slide Review NO; Basophils Absolute Auto 0 /uL (0-100); Basophils Percent Auto 0.4 % (0-2); Eosinophils Absolute Auto 100 /uL (0-450); Eosinophils Percent Auto 0.9 % (2-4); Hematocrit 39.4 % (41-53); Hemoglobin 13.3 g/dL (13.5-17.5); Lymphocytes Absolute Auto 1000 /uL (1100-4500); Lymphocytes Percent Auto 14.7 % (25-40); Mean Corpuscular HGB Conc 33.9 % (30-36); Mean Corpuscular Hemoglobin 29.6 PG (26-34); Mean Corpuscular Volume 87.3 fL (80-100); Monocytes Absolute Auto 600 /uL (0-900); Monocytes Percent Auto 8.4 % (3-14); Neutrophils Absolute Auto 5300 /uL (1500-7000); Neutrophils Percent Auto 75.6 % (50-75); Platelet Count 160 X10^3/uL (150-400); Red Blood Cell Count 4.51 X10^6/uL (4.5-5.9); Red Cell Distribution Width 14.4 % (11.6-14.8); White Blood Cell Count 7.1 X10^3/uL (4.5-11.0)
[2020-12-28 05:47] LABS: BUN Creatinine Ratio 11.3 (6-22); Blood Urea Nitrogen 8 mg/dL (9-20); Carbon Dioxide 28 mmol/L (22-32); Chloride 102 mmol/L (98-107); Estimated Glomerular Filt Rate > 60.0 mL/min (>60); Glucose 199 mg/dL (70-100); HEMOLYSIS < 15 (0-50); Potassium 4.2 mmol/L (3.4-5.1); Sodium 134 mmol/L (137-145)
[2020-12-28] MEDS: DEXTROSE 5%-0.9% NS 1,000 ML 150 ML IV (07:15)
[2020-12-28] MEDS: MORPHINE 4 MG/ML INJ IV ×3 (07:33→16:41)
[2020-12-28] MEDS: INSULIN ASPART 100 UNIT/ML INSULN PEN SUBCUT ×4 (08:13→20:48)
[2020-12-28] MEDS: INSULIN GLARGINE 100 UNIT/ML 3ML PEN 10 UNIT SUBCUT (08:15)
--- NOTE | 2020-12-28 09:47 | PM.PN.1 ---
Subjective Subjective Date Patient Seen: 12/28/20 Time Patient Seen: 09:47 Interval history: Patient reports that pain and distension are persistent, although slightly better. He says he continues to pass gas, and denies nausea/vomiting. He says he has no appetite due to the pain. Exam Vital Signs (past 8 hours): - 12/28/20 04:00 12/28/20 08:00 Temperature 98.5 F 98.7 F Pulse Rate 99 H 99 H Respiratory Rate 18 14 Blood Pressure 125/73 138/69 Pulse Oximetry 95 94 Oxygen Delivery Method Room Air Oxygen Flow Rate 0 Narrative Exam Narrative: GENERAL: Alert, comfortable. Appears stated age. Answers questions promptly and appropriately. Vital signs noted. HENT: Normocephalic, atraumatic. Hearing intact. EYES: Conjunctiva pink, sclera white, no periorbital swelling. CARDIOVASCULAR: Regular rate. No pedal edema. RESPIRATORY: Non-tachypneic, breathing comfortably on room air. GASTROINTESTINAL: Abdomen soft, mildly distended, well-healed vertical midline incisional scar, with nontender hernia defect at the superior aspect. Moderately tender to palpation in all quadrants, greatest in the right lower quadrant. MUSCULOSKELETAL: Equal tone and mass bilaterally. SKIN: Warm, dry, soft, appropriate color for ethnicity. No other lesions, rashes, or wounds. NEURO: Alert and Oriented X 3. No gross sensory deficits, or cognitive issues. PSYCH: Appropriate affect and mood. Objective Imaging CT scan - abdomen: Radiologist's impression: [address] [id number] Scan ReportSigned Patient: Sanjiv Torres [facility]#: [id number]: [id number]:[id number]/Sex: 45 / MDate of Service: 12/26/20Loc: EDAccession Number: [id number] Procedure: CT abdomen pelvis w con Ordering Provider: Rebekah Watson D.O. PROCEDURE: CT ABDOMEN PELVIS W CON INDICATIONS: diarrhea x2d, abd pain, hernia, hx bowel obstruction TECHNIQUE: After the administration of intravenous contrast, 5 mm thick sections acquired from the diaphragm to the symphysis. 5 mm coronal and sagittal reformats were acquired. For radiation dose reduction, the following was used: automated exposure control, adjustment of mA and/or kV according to patient size. COMPARISON: [facility], CT, CT ABDOMEN PELVIS W CON, 04/24/2020, 12:42. FINDINGS: Image quality: Excellent. ABDOMEN: Lung bases: There is mild atelectasis or scarring in the lung bases. Heart size is normal. There is a small hiatal hernia. Solid organs: Evaluation of the liver demonstrates no focal hepatic lesions. The gallbladder appears within normal limits without calcified gallstones. Biliary system is non-dilated. Pancreas enhances normally. No peripancreatic fat stranding or fluid collections. No pancreatic duct dilatation. The spleen is normal in size. No adrenal nodules. Kidneys demonstrate no hydronephrosis. Peritoneum and bowel: There is prominent gastric distention with mild wall thickening in the gastric antrum. Multiple segments of bowel wall thickening with associated fat stranding are demonstrated in the lower abdomen and pelvis involving the distal small bowel as well as the ascending and sigmoid colon. There is associated fat stranding and a small amount of free fluid compatible with a peritonitis. Mild segmental dilatation of a few small bowel loops is demonstrated in the lower abdomen, measuring up to 3.1 cm with scattered air-fluid levels suggestive of a functional obstruction or ileus. The appendix is thick-walled, measuring up to 1.1 cm in diameter with a small amount of intraluminal fluid. There are surgical sutures along the cecum reportedly from prior resection of an epiploic appendage. A small amount of free fluid is present in the pelvis. No intraperitoneal free air. Nodes and vessels: No retroperitoneal or mesenteric adenopathy by size criteria. Aorta and inferior vena cava are normal in size. Miscellaneous: No ventral hernias. PELVIS: Genitourinary: There is mild concentric bladder wall thickening. Miscellaneous: No inguinal hernias or adenopathy. Bones: No suspicious bony lesions. No vertebral body compression fractures. IMPRESSION: 1. Segmental bowel wall thickening involving multiple loops of distal small bowel as well as the ascending colon and sigmoid colon likely representing an infectious or inflammatory enterocolitis. This includes possible inflammatory bowel disease. 2. Mild associated upstream dilatation of small-bowel loops in the lower abdomen likely represents a functional partial obstruction or ileus. 3. Extensive fat stranding in the lower abdomen and pelvis with a small amount of fluid compatible with a peritonitis. 4. Appendiceal wall thickening and enhancement is nonspecific but appears similar to the prior study and is suggestive of secondary reactive changes secondary to the regional peritonitis. No fluid distension. Findings discussed with Dr. Watson on 12/26/2020 at 6:53 p.m.. Dictated by: Gavino Thorne M.D. on 12/26/2020 at 19:06 Approved by: Gavino Thorne M.D. on 12/26/2020 at 19:17 Labs Result Diagrams: 12/28/20 05:12 12/28/20 05:12 Labs: Laboratory Results - last 24 hr 12/28/20 12/28/20 12/28/20 05:12 05:12 05:12 WBC 7.1 RBC 4.51 Hgb 13.3 L Hct 39.4 L MCV 87.3 MCH 29.6 MCHC 33.9 RDW 14.4 Plt Count 160 Neut % (Auto) 75.6 H Lymph % (Auto) 14.7 L D [place] % (Auto) 8.4 Eos % (Auto) 0.9 L Baso % (Auto) 0.4 Neut # (Auto) 5300 Lymph # (Auto) 1000 L [place] # (Auto) 600 Eos # (Auto) 100 Baso # (Auto) 0 Sodium 134 L Potassium 4.2 Chloride 102 Carbon Dioxide 28 BUN 8 L Creatinine 0.71 Estimated GFR > 60.0 BUN/Creatinine Ratio 11.3 Glucose 199 H Calcium 8.0 L Magnesium 2.0 PFSH Medical History Abdominal hernia History of small bowel obstruction Insulin dependent diabetes mellitus Surgical History History of abdominal surgery Family History Grandmother Heart attack Stroke Mother Blind Social History household members: family Smoking Status: Never smoker Assessment & Plan Assessment and plan (1) Enterocolitis: Status: Acute (2) Peritonitis: Status: Acute (3) Abdominal hernia: Qualifiers: Hernia type: unspecified Obstruction and gangrene presence: without obstruction or gangrene Recurrence: not specified as recurrent Qualified Code(s): K46.9 - Unspecified abdominal hernia without obstruction or gangrene Status: Acute (4) IDDM (insulin dependent diabetes mellitus): Status: Chronic Assessment & Plan narrative: This is a 45-year-old man with history of removal of an inflamed cecal epiploica, and subsequent laparotomy for SBO and lysis of adhesions. He comes in with similar symptoms to what he has had on his past to episodes, him with a CT scan which is indicative of multiple possible etiologies of his abdominal pain. His lab picture is not strongly indicative of any infection, with normal procalcitonin, and normal white count. He is on antibiotics for possible appendicitis, possible colitis. I recommend adding anti-inflammatory for possible appendagitis. He also needs a GI workup for IBD. He does not have a significant history of chronic diarrhea, chronic GI bleed, or family history of autoimmune disease. However, he has never had a colonoscopy, and he has some concerning findings on his CT scan for possible patchy inflammatory changes. Plan: Non surgical at this point Continue IV abx, antiinflammatory (toradol) Ambulate as tolerated advance to clears as tolerated Quality VTE Deep Vein Thrombosis/Pulmonary Embolism Present on Admission: No
--- NOTE | 2020-12-28 10:05 | P.PN_ITS ---
Subjective Subjective Date Patient Seen: 12/28/20 Time Patient Seen: 10:06 Interval history: Sanjiv Torres is a 43-year-old male with history of uncontrolled likely type 2 diabetes, insulin dependent, hyperlipidemia and recent complex surgical history including an inflamed epiploic appendage which was later complicated by a small bowel obstruction who was admitted for abdominal pain of uncertain etiology. His CT scan shows bowel wall thickening involving multiple loops of distal small bowel as well as ascending and sigmoid colon, some sort of mild partial obstruction, and extensive fat stranding in the lower abdomen consistent with peritonitis, and appendiceal wall thickening and enhancement that is stated is nonspecific. His abdominal pain has improved today with initial conservative management including antibiotic therapy with ceftriaxone and Flagyl, and NPO status. Surgery prefers to manage non-operatively at this time with conservative management, they do recommend that he can have clear liquids today and initiation of an NSAID. Patient states he is not hungry today due to pain. Denies any nausea or vomiting. Exam Vital Signs (past 8 hours): - 12/28/20 04:00 12/28/20 08:00 Temperature 98.5 F 98.7 F Pulse Rate 99 H 99 H Respiratory Rate 18 14 Blood Pressure 125/73 138/69 Pulse Oximetry 95 94 Oxygen Delivery Method Room Air Oxygen Flow Rate 0 Narrative Exam Narrative: GENERAL APPEARANCE: Well developed, well nourished, in no acute distress, but does appear mildly uncomfortable with movement. SKIN: Inspection of the skin reveals no rashes, ulcerations or petechiae. HEENT: Normocephalic atraumatic, extraocular muscles are intact, oropharynx is clear and mucous membranes are moist, neck is supple without adenopathy NECK: Supple and symmetric. There was no thyroid enlargement, and no tenderness, or masses were felt. CHEST: Normal AP diameter and normal contour without any kyphoscoliosis. LUNGS: Auscultation of the lungs revealed no wheezes, rhonchi, or rales. CARDIOVASCULAR: There was a regular rate and rhythm without any murmurs, gallops, rubs. Peripheral pulses were 2+ and symmetric. ABDOMEN: Soft, but with some distension, diffuse abdominal tenderness but more prominent in the right lower quadrant slightly improved in other areas today but similar in RLQ. MUSCULOSKELETAL: There was no tenderness or effusions noted. Muscle strength and tone were normal. EXTREMITIES: No cyanosis, clubbing or edema. NEUROLOGIC: Alert and oriented x 3. Normal affect. Strength is +5/5 in the Upper Extremities and Lower Extremities Bilaterally. Objective Labs Result Diagrams: 12/28/20 05:12 12/28/20 05:12 Labs: Laboratory Results - last 24 hr 12/28/20 12/28/20 12/28/20 05:12 05:12 05:12 WBC 7.1 RBC 4.51 Hgb 13.3 L Hct 39.4 L MCV 87.3 MCH 29.6 MCHC 33.9 RDW 14.4 Plt Count 160 Neut % (Auto) 75.6 H Lymph % (Auto) 14.7 L D [place] % (Auto) 8.4 Eos % (Auto) 0.9 L Baso % (Auto) 0.4 Neut # (Auto) 5300 Lymph # (Auto) 1000 L [place] # (Auto) 600 Eos # (Auto) 100 Baso # (Auto) 0 Sodium 134 L Potassium 4.2 Chloride 102 Carbon Dioxide 28 BUN 8 L Creatinine 0.71 Estimated GFR > 60.0 BUN/Creatinine Ratio 11.3 Glucose 199 H Calcium 8.0 L Magnesium 2.0 PFSH Medical History Abdominal hernia History of small bowel obstruction Insulin dependent diabetes mellitus Surgical History History of abdominal surgery Family History Grandmother Heart attack Stroke Mother Blind Social History household members: family Smoking Status: Never smoker Assessment & Plan Assessment & Plan narrative: Sanjiv Torres is a 43-year-old male with history of uncontrolled likely type 2 diabetes, insulin dependent, hyperlipidemia and recent complex surgical history including an inflamed epiploic appendage which was later complicated by a small bowel obstruction who was admitted for abdominal pain of uncertain etiology. CT scan shows a variety of potential caus es including possibly infectious or inflammatory enterocolitis, peritonitis, or appendicitis 1. Abdominal pain, acute, present on admission -His CT scan shows bowel wall thickening involving multiple loops of distal small bowel as well as ascending and sigmoid colon, some sort of mild partial obstruction, and extensive fat stranding in the lower abdomen consistent with peritonitis, and appendiceal wall thickening and enhancement that is stated as nonspecific. -he is without leukocytosis or fever since admission. -Etiology is not entirely clear at this time. Potential causes include possibly infectious or inflammatory/autoimmune enterocolitis, peritonitis, or appendicitis. However, his symptoms are improving with initial conservative therapy including bowel rest, ceftriaxone, and Flagyl. Will continue his antibiotics with plan for 10 days at this point. Start NSAIDs and attempt clear liquids today. -will reduce IV fluids to 50 cc per hour today, change from D5 to NS. -GI panel has been ordered. -appreciate surgery consultation. 2. Lactic acidosis, acute, present on admission, likely caused by dehydration secondary to patient's diarrhea secondary to above intra-abdominal pathology -initial lactate was elevated at 3.5, has now improved to 1.8 with fluid resuscitation. Will stop trending lactate at this time. 3. 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 -patient takes Lantus 60 units nightly at home. He had episodes of hypoglycemia as he did take his Lantus but was not eating. His glucose has improved to 245. D5 was continued initially, will stop today and transition to NS. Initially resumed Lantus at 10 units twice daily while NPO, will increase to 15 BID starting this evening given he is to start Clears, although it is unclear how much he will be able to tolerate. -continue correctional short-acting insulin 4. Hypo magnesium, acute, present on admission, likely secondary to dehydration from diarrhea -magnesium repleted given this was 1.4 on admission. Now improved to 2.0 5. Hyperlipidemia, chronic, control unknown, not present on admission -continue patient's simvastatin when tolerating PO intake Code status: Full Surrogate/plan of care:Sister Angela Torres COVID PCR:Negative VTE prophylaxis:Lovenox, but hold pending surgical evaluation. COVID-19 COVID-19 status: Negative
[2020-12-28] MEDS: SODIUM CHLORIDE 0.9% 1,000 ML 50 ML IV (10:44)
[2020-12-28] MEDS: ENOXAPARIN 40 MG/0.4 ML SYRINGE SUBCUT (10:44)
[2020-12-28 13:07] LABS: C-Reactive Protein Quant 1.6 mg/dL (<1.0)
[2020-12-28 13:08] LABS: Iron 10 ug/dL (49-181); Percent Iron Saturation 4 % (20-50)
[2020-12-28] MEDS: CEFTRIAXONE 2 GM/50 ML FROZ.PIGGY IV (20:47)
[2020-12-28] MEDS: SIMVASTATIN 20 MG TABLET 10 MG PO (20:47)
[2020-12-28] MEDS: INSULIN GLARGINE 100 UNIT/ML 3ML PEN 15 UNIT SUBCUT (20:48)
[2020-12-29] VITALS (10 sets, daily range): BP systolic 122–152; BP diastolic 62–79; PULSE 78–96; RESP 17–18; TEMP 36.5–37.2; O2SAT 95–99
[2020-12-29] MEDS: metroNIDAZOLE 500 MG/100 ML PIGGYBACK 100 MG IV ×3 (01:03→17:01)
[2020-12-29 06:32] LABS: BUN Creatinine Ratio 12.3 (6-22); Blood Urea Nitrogen 7 mg/dL (9-20); Calcium 8.1 mg/dL (8.4-10.2); Carbon Dioxide 27 mmol/L (22-32); Chloride 101 mmol/L (98-107); Estimated Glomerular Filt Rate > 60.0 mL/min (>60); Glucose 177 mg/dL (70-100); HEMOLYSIS < 15 (0-50); Potassium 3.5 mmol/L (3.4-5.1); Sodium 134 mmol/L (137-145)
--- NOTE | 2020-12-29 07:36 | PM.PN.1 ---
Subjective Subjective Date Patient Seen: 12/29/20 Time Patient Seen: 07:51 Interval history: Patient tolerating p.o. clears, denies nausea or vomiting. Left lower quadrant, and upper quadrant abdominal pain improved. Right lower quadrant pain persistent. Exam Vital Signs (past 8 hours): - 12/29/20 00:25 12/29/20 01:00 12/29/20 05:37 Temperature 98.0 F 98.3 F Pulse Rate 96 H 90 Respiratory Rate 18 17 Blood Pressure 138/79 152/78 H Pulse Oximetry 95 95 96 12/29/20 06:53 Temperature Pulse Rate Respiratory Rate Blood Pressure Pulse Oximetry 96 Oxygen Delivery Method Room Air Oxygen Flow Rate 0 Narrative Exam Narrative: GENERAL: Alert, comfortable. Appears stated age. Answers questions promptly and appropriately. Vital signs noted. HENT: Normocephalic, atraumatic. Hearing intact. EYES: Conjunctiva pink, sclera white, no periorbital swelling. CARDIOVASCULAR: Regular rate. No pedal edema. RESPIRATORY: Non-tachypneic, breathing comfortably on room air. GASTROINTESTINAL: Abdomen soft, mildly distended, well-healed vertical midline incisional scar, with nontender hernia defect at the superior aspect. Mildly tender to palpation upper and left lower quadrants; moderate TTP in the right lower quadrant. MUSCULOSKELETAL: Equal tone and mass bilaterally. SKIN: Warm, dry, soft, appropriate color for ethnicity. No other lesions, rashes, or wounds. NEURO: Alert and Oriented X 3. No gross sensory deficits, or cognitive issues. PSYCH: Appropriate affect and mood. Objective Labs Result Diagrams: 12/28/20 05:12 12/29/20 05:42 Labs: Laboratory Results - last 24 hr 12/26/20 12/27/20 12/29/20 21:02 04:55 05:42 Sodium 134 L Potassium 3.5 Chloride 101 Carbon Dioxide 27 BUN 7 L Creatinine 0.57 L Estimated GFR > 60.0 BUN/Creatinine Ratio 12.3 Glucose 177 H Calcium 8.1 L Magnesium Iron 10 L TIBC 235 L % Saturation 4 L Transferrin 187 L C-Reactive Protein 1.6 H TSH 0.41 L Free T4 0.88 12/29/20 05:42 Sodium Potassium Chloride Carbon Dioxide BUN Creatinine Estimated GFR BUN/Creatinine Ratio Glucose Calcium Magnesium 2.0 Iron TIBC % Saturation Transferrin C-Reactive Protein TSH Free T4 PFSH Medical History Abdominal hernia History of small bowel obstruction Insulin dependent diabetes mellitus Surgical History History of abdominal surgery Family History Grandmother Heart attack Stroke Mother Blind Social History household members: family Smoking Status: Never smoker Assessment & Plan Assessment and plan (1) Enterocolitis: Status: Acute (2) Peritonitis: Status: Acute (3) Abdominal hernia: Qualifiers: Hernia type: unspecified Obstruction and gangrene presence: without obstruction or gangrene Recurrence: not specified as recurrent Qualified Code(s): K46.9 - Unspecified abdominal hernia without obstruction or gangrene Status: Acute (4) IDDM (insulin dependent diabetes mellitus): Status: Chronic Assessment & Plan narrative: This is a 45-year-old man with history of removal of an inflamed cecal epiploica, and subsequent laparotomy for SBO and lysis of adhesions. He comes in with similar symptoms to what he has had on his past to episodes, him with a CT scan which is indicative of multiple possible etiologies of his abdominal pain. His lab picture is not strongly indicative of any infection, with normal procalcitonin, and normal white count (repeat CBC and procalcitonin pending today). He is on antibiotics for possible appendicitis, possible colitis. I recommended adding anti-inflammatory for possible appendagitis. He also needs a GI workup for IBD. He does not have a significant history of chronic diarrhea, chronic GI bleed, or family history of autoimmune disease. However, he has never had a colonoscopy, and he has some concerning findings on his CT scan for possible patchy inflammatory changes. Slight improvement over yesterday's exam. Plan: Non surgical at this point Continue IV abx, antiinflammatory (toradol) Ambulate 20 minute TID or more advance diet as tolerated dispo on oral abx pending labs and exam continue to improve COVID-19 COVID-19 status: Negative Result date/Date tested (Pos, Neg/Pending): 12/26/20 Time Spent With Patient Time with patient: 15-24 minutes Quality VTE Deep Vein Thrombosis/Pulmonary Embolism Present on Admission: No
[2020-12-29 07:42] LABS: Basophils Absolute Auto 100 /uL (0-100); Eosinophils Absolute Auto 200 /uL (0-450); Hemoglobin 13.7 g/dL (13.5-17.5); Lymphocytes Absolute Auto 1700 /uL (1100-4500); Red Blood Cell Count 4.69 X10^6/uL (4.5-5.9)
[2020-12-29 07:49] LABS: Basophils Percent Auto 0.6 % (0-2); Eosinophils Percent Auto 1.9 % (2-4); Hematocrit 40.6 % (41-53); Lymphocytes Percent Auto 17.7 % (25-40); Mean Corpuscular HGB Conc 33.8 % (30-36); Mean Corpuscular Hemoglobin 29.3 PG (26-34); Mean Corpuscular Volume 86.6 fL (80-100); Monocytes Absolute Auto 900 /uL (0-900); Neutrophils Absolute Auto 6600 /uL (1500-7000); Neutrophils Percent Auto 69.8 % (50-75); Red Cell Distribution Width 13.8 % (11.6-14.8); White Blood Cell Count 9.5 X10^3/uL (4.5-11.0)
[2020-12-29 07:51] LABS: Add Manual Diff / Slide Review SLIDE REVIEW
[2020-12-29 08:07] LABS: Procalcitonin 0.61 ng/mL (<0.5)
[2020-12-29 08:17] LABS: Platelet Count 151 X10^3/uL (150-400); Platelet Estimate Adequate on smear; RBC Morphology Normal Morphology
[2020-12-29] MEDS: INSULIN ASPART 100 UNIT/ML INSULN PEN SUBCUT ×4 (08:29→20:37)
[2020-12-29] MEDS: ENOXAPARIN 40 MG/0.4 ML SYRINGE SUBCUT (08:31)
[2020-12-29] MEDS: INSULIN GLARGINE 100 UNIT/ML 3ML PEN 15 UNIT SUBCUT (08:32)
[2020-12-29] MEDS: MORPHINE 4 MG/ML INJ IV (08:33)
[2020-12-29] MEDS: KETOROLAC 30 MG/ML VIAL 15 MG IV ×3 (10:04→20:43)
--- NOTE | 2020-12-29 10:49 | PC.NURSE ---
Addendum entered by Lisha Diaz R.N. 12/29/20 13:43: Patient up to shower independently, IV site covered, tele removed. Patient denied increase in pain with shower. Back to bed. Tele on, IV NS infusing at 50cc/hr. Original Note: Patient A/O x 4, ambulating in the halls independently. C/O pain in abdomen with palpitation and when lying on R side. Abdomen soft, BT active x 4. No stool at this time. Patient on RA, 98-99%. lungs CTA. HR WNL, pulses equal. Patient denies SOB, N/V, dizziness or lightheadedness. Tolerating clear liquid diet, order has been advanced for lunch. NS @ 50cc/hr infusing in L FA, intermittent IV abx, patient tolerating. No complaints or concerns at this time.
--- NOTE | 2020-12-29 11:32 | P.PN_ITS ---
Subjective Subjective Date Patient Seen: 12/29/20 Time Patient Seen: 11:32 Interval history: Sanjiv Torres is a 43-year-old male with history of uncontrolled likely type 2 diabetes, insulin dependent, hyperlipidemia and recent complex surgical history including an inflamed epiploic appendage which was later complicated by a small bowel obstruction who was admitted for abdominal pain of uncertain etiology. His CT scan showed bowel wall thickening involving multiple loops of distal small bowel as well as ascending and sigmoid colon, some sort of mild partial obstruction, and extensive fat stranding in the lower abdomen consistent with peritonitis, and appendiceal wall thickening and enhancement that is stated is nonspecific. His abdominal pain has improved today with initial conservative management including antibiotic therapy with ceftriaxone and Flagyl, and he was tolerating clears today. Surgery prefers to manage non- operatively at this time with conservative management, they do recommend that he can advance diet and he was started on toradol today. States he is hungry, he was able to ambulate despite his persistent RLQ pain and denies any nausea or vomiting. Procalcitonin has increased slightly, and though no leukocytosis his WBC is rising. Surgery recommends CT imaging tomorrow if labs continue to worsen. Exam Vital Signs (past 8 hours): - 12/29/20 05:37 12/29/20 06:53 12/29/20 08:00 Temperature 98.3 F 98.2 F Pulse Rate 90 93 H Respiratory Rate 17 18 Blood Pressure 152/78 H 138/73 Pulse Oximetry 96 96 95 12/29/20 10:00 Temperature Pulse Rate Respiratory Rate Blood Pressure Pulse Oximetry 99 Oxygen Delivery Method Room Air Oxygen Flow Rate 0 Narrative Exam Narrative: GENERAL APPEARANCE: Well developed, well nourished, in no acute distress. He ambulated throughout the hallway, in some discomfort but generally mild. SKIN: Inspection of the skin reveals no rashes, ulcerations or petechiae. HEENT: Normocephalic atraumatic, extraocular muscles are intact, oropharynx is clear and mucous membranes are moist, neck is supple without adenopathy NECK: Supple and symmetric. There was no thyroid enlargement, and no tenderness, or masses were felt. CHEST: Normal AP diameter and normal contour without any kyphoscoliosis. LUNGS: Auscultation of the lungs revealed no wheezes, rhonchi, or rales. CARDIOVASCULAR: There was a regular rate and rhythm without any murmurs, gallops, rubs. Peripheral pulses were 2+ and symmetric. ABDOMEN: Soft, but with some distension, diffuse abdominal tenderness but more prominent in the right lower quadrant slightly improved in other areas today but similar in RLQ. MUSCULOSKELETAL: There was no tenderness or effusions noted. Muscle strength and tone were normal. EXTREMITIES: No cyanosis, clubbing or edema. NEUROLOGIC: Alert and oriented x 3. Normal affect. Strength is +5/5 in the Upper Extremities and Lower Extremities Bilaterally. Objective Labs Result Diagrams: 12/29/20 07:25 12/29/20 05:42 Labs: Laboratory Results - last 24 hr 12/26/20 12/27/20 12/29/20 21:02 04:55 05:42 WBC RBC Hgb Hct MCV MCH MCHC RDW Plt Count Neut % (Auto) Lymph % (Auto) [place] % (Auto) Eos % (Auto) Baso % (Auto) Neut # (Auto) Lymph # (Auto) [place] # (Auto) Eos # (Auto) Baso # (Auto) Platelet Estimate RBC Morphology Sodium 134 L Potassium 3.5 Chloride 101 Carbon Dioxide 27 BUN 7 L Creatinine 0.57 L Estimated GFR > 60.0 BUN/Creatinine Ratio 12.3 Glucose 177 H Calcium 8.1 L Magnesium Iron 10 L TIBC 235 L % Saturation 4 L Transferrin 187 L C-Reactive Protein 1.6 H Procalcitonin TSH 0.41 L Free T4 0.88 12/29/20 12/29/20 12/29/20 05:42 07:25 07:25 WBC 9.5 RBC 4.69 Hgb 13.7 Hct 40.6 L MCV 86.6 MCH 29.3 MCHC 33.8 RDW 13.8 Plt Count 151 Neut % (Auto) 69.8 Lymph % (Auto) 17.7 L [place] % (Auto) 10.0 Eos % (Auto) 1.9 L Baso % (Auto) 0.6 Neut # (Auto) 6600 Lymph # (Auto) 1700 [place] # (Auto) 900 Eos # (Auto) 200 Baso # (Auto) 100 Platelet Estimate Adequate on smear RBC Morphology Normal morphology Sodium Potassium Chloride Carbon Dioxide BUN Creatinine Estimated GFR BUN/Creatinine Ratio Glucose Calcium Magnesium 2.0 Iron TIBC % Saturation Transferrin C-Reactive Protein Procalcitonin 0.61 H TSH Free T4 [facility] Medical History Abdominal hernia History of small bowel obstruction Insulin dependent diabetes mellitus Surgical History History of abdominal surgery Family History Grandmother Heart attack Stroke Mother Blind Social History household members: family Smoking Status: Never smoker Assessment & Plan Assessment & Plan narrative: Sanjiv Torres is a 43-year-old male with history of uncontrolled likely type 2 diabetes, insulin dependent, hyperlipidemia and recent complex surgical history including an inflamed epiploic appendage which was later complicated by a small bowel obstruction who was admitted for abdominal pain of uncertain etiology. CT scan shows a variety of potential causes including possibly infectious or inflammatory enterocolitis, peritonitis, or appendicitis and he is slowly improving clinically with conservative / non- operative management. 1. Abdominal pain, acute, present on admission -His CT scan shows bowel wall thickening involving multiple loops of distal small bowel as well as ascending and sigmoid colon, some sort of mild partial obstruction, and extensive fat stranding in the lower abdomen consistent with peritonitis, and appendiceal wall thickening and enhancement that is stated as nonspecific. -he is without leukocytosis or fever since admission, but WBC has been increasing and procalcitonon increasing now as well. -Etiology is not entirely clear at this time. Potential causes include possibly infectious or inflammatory/autoimmune enterocolitis, peritonitis, or appendicitis or appendigitis again. His symptoms are improving with initial conservative therapy including bowel rest, ceftriaxone, and Flagyl. Will continue his antibiotics with plan for a total of 10 days at this point. Started toradol and advance diet today. -GI panel has been ordered, but no bowel movements since admission. -appreciate surgery consultation. -if labs continue to worsen tomorrow, plan is for CT imaging. If improvement and continued improvement in symptoms he should be able to discharge with GI follow up recommended as an outpatient. 2. Lactic acidosis, acute, present on admission, likely caused by dehydration secondary to patient's diarrhea secondary to above intra-abdominal pathology -initial lactate was elevated at 3.5, has now improved to 1.8 with fluid re suscitation. Will stop trending lactate at this time. 3. 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 -patient takes Lantus 60 units nightly at home. He had episodes of hypoglycemia as he did take his Lantus but was not eating. His glucose has improved. D5 was continued initially, then changed to NS. Will d/c IVF today. Given advancement in diet, will advace slowly with Lantus therapy, to 20 U BID starting this evening to avoid hypogylcemia and his glucose was not horrible this AM at 177. -continue correctional short-acting insulin 4. Hypo magnesium, acute, present on admission, likely secondary to dehydration from diarrhea -magnesium repleted given this was 1.4 on admission. Now improved. 5. Hyperlipidemia, chronic, control unknown, not present on admission -continue patient's simvastatin when tolerating PO intake Code status: Full Surrogate/plan of care:Sister Angela SPAULDING PCR:Negative VTE prophylaxis:Lovenox daily. Quality VTE Deep Vein Thrombosis/Pulmonary Embolism Present on Admission: No
[2020-12-29] MEDS: SODIUM CHLORIDE 0.9% 1,000 ML 50 ML IV (15:06)
[2020-12-29] MEDS: CEFTRIAXONE 2 GM/50 ML FROZ.PIGGY IV (19:58)
[2020-12-29] MEDS: INSULIN GLARGINE 100 UNIT/ML 3ML PEN 20 UNIT SUBCUT (20:36)
[2020-12-29] MEDS: SIMVASTATIN 20 MG TABLET 10 MG PO (20:43)
--- NOTE | 2020-12-29 22:40 | PC.NURSE ---
Pt has had uneventful afternoon. Denies discomfort. Independent in room HL LAC intact/patent. AC CBG =231, HS CBG= 203 S/S coverage given as per orders. Call light w/in reach, pt independent in room Continue w/plan of care.
[2020-12-30] VITALS: BP 151/97; PULSE 81; RESP 16; TEMP 36.2; O2SAT 99
[2020-12-30] MEDS: metroNIDAZOLE 500 MG/100 ML PIGGYBACK 100 MG IV ×2 (00:58→08:36)
[2020-12-30 02:00] VITALS: O2SAT 95
[2020-12-30 02:00] LABS: Methylmalonic Acid,Serum 87 nmol/L (0-378); t-Transglutaminase IgA <2 U/mL (0-3)
[2020-12-30 05:37] LABS: Campylobacter Not Detected (Not Detect); Clostridium difficile toxin AB Not Detected (Not Detect); Enteroaggregative E.coli Not Detected (Not Detect); Plesiomonsa shigelloides Not Detected (Not Detect); Salmonella Not Detected (Not Detect); Vibrio Not Detected (Not Detect); Vibrio cholerae Not Detected (Not Detect); Yersinia enterocolitica Not Detected (Not Detect)
[2020-12-30 05:38] LABS: Adenovirus F 40/41 Not Detected (Not Detect); Astrovirus Not Detected (Not Detect); Cryptosporidium Not Detected (Not Detect); Cyclospora cayetanensis Not Detected (Not Detect); Entamoeba histolytica Not Detected (Not Detect); Enteropathogenic E.coli Not Detected (Not Detect); Enterotoxigenic E.coli It/st Not Detected (Not Detect); Giardia lamblia Not Detected (Not Detect); Norovirus GI/GII Not Detected (Not Detect); Rotavirus A Not Detected (Not Detect); Sapovirus Not Detected (Not Detect); Shiga-like toxin-prod E.coli Not Detected (Not Detect); Shigella/Enteroinvasive E.coli Not Detected (Not Detect)
[2020-12-30 05:40] LABS: Add Manual Diff / Slide Review NO; Basophils Absolute Auto 0 /uL (0-100); Basophils Percent Auto 0.6 % (0-2); Eosinophils Absolute Auto 200 /uL (0-450); Eosinophils Percent Auto 3.6 % (2-4); Hematocrit 36.6 % (41-53); Hemoglobin 12.3 g/dL (13.5-17.5); Lymphocytes Absolute Auto 1000 /uL (1100-4500); Lymphocytes Percent Auto 19.2 % (25-40); Mean Corpuscular HGB Conc 33.5 % (30-36); Mean Corpuscular Hemoglobin 29.2 PG (26-34); Mean Corpuscular Volume 87.1 fL (80-100); Monocytes Absolute Auto 600 /uL (0-900); Monocytes Percent Auto 11.5 % (3-14); Neutrophils Absolute Auto 3200 /uL (1500-7000); Neutrophils Percent Auto 65.1 % (50-75); Platelet Count 173 X10^3/uL (150-400); Red Blood Cell Count 4.21 X10^6/uL (4.5-5.9); Red Cell Distribution Width 13.9 % (11.6-14.8); White Blood Cell Count 4.9 X10^3/uL (4.5-11.0)
[2020-12-30 05:52] LABS: BUN Creatinine Ratio 16.1 (6-22); Blood Urea Nitrogen 10 mg/dL (9-20); Carbon Dioxide 29 mmol/L (22-32); Chloride 100 mmol/L (98-107); Estimated Glomerular Filt Rate > 60.0 mL/min (>60); Glucose 177 mg/dL (70-100); HEMOLYSIS < 15 (0-50); Potassium 3.6 mmol/L (3.4-5.1); Sodium 136 mmol/L (137-145)
[2020-12-30 06:00] VITALS: BP 151/74; PULSE 85; RESP 16; TEMP 36.5; O2SAT 97
[2020-12-30 08:00] VITALS: BP 161/80; PULSE 88; RESP 16; TEMP 36.4; O2SAT 98
[2020-12-30] MEDS: INSULIN GLARGINE 100 UNIT/ML 3ML PEN 20 UNIT SUBCUT (08:24)
[2020-12-30] MEDS: INSULIN ASPART 100 UNIT/ML INSULN PEN SUBCUT ×2 (08:26→12:07)
[2020-12-30] MEDS: ENOXAPARIN 40 MG/0.4 ML SYRINGE SUBCUT (08:36)
[2020-12-30] MEDS: KETOROLAC 30 MG/ML VIAL 15 MG IV (08:38)
--- NOTE | 2020-12-30 08:41 | P.PN_ITS ---
Subjective Subjective Date Patient Seen: 12/30/20 Time Patient Seen: 08:41 Interval history: Tolerating regular diet. Passed gas and stool. Reports pain is much better today. Exam Vital Signs (past 8 hours): - 12/30/20 02:00 12/30/20 06:00 12/30/20 08:00 Temperature 97.7 F 97.6 F Pulse Rate 85 88 Respiratory Rate 16 16 Blood Pressure 151/74 H 161/80 H Pulse Oximetry 95 97 98 Oxygen Delivery Method Room Air Oxygen Flow Rate 0 Narrative Exam Narrative: GENERAL: Alert, comfortable. Appears stated age. Answers questions promptly and appropriately. Vital signs noted. HENT: Normocephalic, atraumatic. Hearing intact. EYES: Conjunctiva pink, sclera white, no periorbital swelling. CARDIOVASCULAR: Regular rate. No pedal edema. RESPIRATORY: Non-tachypneic, breathing comfortably on room air. GASTROINTESTINAL: Abdomen soft, mildly distended, well-healed vertical midline incisional scar, with nontender hernia defect at the superior aspect. Minimal TTP. MUSCULOSKELETAL: Equal tone and mass bilaterally. SKIN: Warm, dry, soft, appropriate color for ethnicity. No other lesions, rashes, or wounds. NEURO: Alert and Oriented X 3. No gross sensory deficits, or cognitive issues. PSYCH: Appropriate affect and mood. Objective Labs Result Diagrams: 12/30/20 05:15 12/30/20 05:15 Labs: Laboratory Results - last 24 hr 12/27/20 12/27/20 12/30/20 04:55 04:55 00:04 WBC RBC Hgb Hct MCV MCH MCHC RDW Plt Count Neut % (Auto) Lymph % (Auto) [place] % (Auto) Eos % (Auto) Baso % (Auto) Neut # (Auto) Lymph # (Auto) [place] # (Auto) Eos # (Auto) Baso # (Auto) Sodium Potassium Chloride Carbon Dioxide BUN Creatinine Estimated GFR BUN/Creatinine Ratio Glucose Calcium Methylmalonic Acid 87 Procalcitonin Stl C. cayetanensis PCR Not detected Stool Rotavirus (PCR) Not detected Stool Adenovirus (PCR) Not detected Stool Astrovirus (PCR) Not detected Stool Cryptosporidium PCR Not detected Stl E.coli Shiga Tox PCR Not detected St Sh/Enteroin Ecoli PCR Not detected Stool E coli O157 PCR Not Reportable Stl Enterotoxigenic E PCR Not detected Stool EPEC (PCR) Not detected Stl E. histolytica PCR Not detected Stool Giardia Lamblia PCR Not detected Stool Sapovirus (PCR) Not detected Stl P. shigelloides PCR Not detected St Y.enterocolitica PCR Not detected Stool Vibrio (PCR) Not detected Stl Vibrio cholerae PCR Not detected Stl Enteroaggr Ecoli PCR Not detected Stl Norovirus GI/GII PCR Not detected Tiss Transglutamin IgG <2 Tiss Transglutamin IgA <2 Campylobacter (PCR) Not detected C. difficile Tox (PCR) Not detected Salmonella (PCR) Not detected Ref Lab Notation Comment 12/30/20 12/30/20 12/30/20 05:15 05:15 05:15 WBC 4.9 RBC 4.21 L Hgb 12.3 L Hct 36.6 L MCV 87.1 MCH 29.2 MCHC 33.5 RDW 13.9 Plt Count 173 Neut % (Auto) 65.1 Lymph % (Auto) 19.2 L [place] % (Auto) 11.5 Eos % (Auto) 3.6 Baso % (Auto) 0.6 Neut # (Auto) 3200 Lymph # (Auto) 1000 L [place] # (Auto) 600 Eos # (Auto) 200 Baso # (Auto) 0 Sodium 136 L Potassium 3.6 Chloride 100 Carbon Dioxide 29 BUN 10 Creatinine 0.62 L Estimated GFR > 60.0 BUN/Creatinine Ratio 16.1 Glucose 177 H Calcium 8.0 L Methylmalonic Acid Procalcitonin 0.40 Stl C. cayetanensis PCR Stool Rotavirus (PCR) Stool Adenovirus (PCR) Stool Astrovirus (PCR) Stool Cryptosporidium PCR Stl E.coli Shiga Tox PCR St Sh/Enteroin Ecoli PCR Stool E coli O157 PCR Stl Enterotoxigenic E PCR Stool EPEC (PCR) Stl E. histolytica PCR Stool Giardia Lamblia PCR Stool Sapovirus (PCR) Stl P. shigelloides PCR St Y.enterocolitica PCR Stool Vibrio (PCR) Stl Vibrio cholerae PCR Stl Enteroaggr Ecoli PCR Stl Norovirus GI/GII PCR Tiss Transglutamin IgG Tiss Transglutamin IgA Campylobacter (PCR) C. difficile Tox (PCR) Salmonella (PCR) Ref Lab Notation [facility] Medical History Abdominal hernia History of small bowel obstruction Insulin dependent diabetes mellitus Surgical History History of abdominal surgery Family History Grandmother Heart attack Stroke Mother Blind Social History household members: family Smoking Status: Never smoker Assessment & Plan Assessment and plan (1) Enterocolitis: Status: Acute (2) Peritonitis: Status: Acute (3) Abdominal hernia: Qualifiers: Hernia type: unspecified Obstruction and gangrene presence: without obstruction or gangrene Recurrence: not specified as recurrent Qualified Code(s): K46.9 - Unspecified abdominal hernia without obstruction or gangrene Status: Acute (4) IDDM (insulin dependent diabetes mellitus): Status: Chronic Assessment & Plan narrative: This is a 45-year-old man with history of removal of an inflamed cecal epiploica, and subsequent laparotomy for SBO and lysis of adhesions. He came in with similar symptoms to what he has had on his past to episodes, with a CT scan which is indicative of multiple possible etiologies of his abdominal pain. His lab picture is not strongly indicative of any infect ion, with normal procalcitonin, and normal white count. He is on antibiotics for possible appendicitis, possible colitis. However, he has never had a colonoscopy, and he has some concerning findings on his CT scan for possible patchy inflammatory changes. Significant improvement. Plan: Non surgical at this point Dispo on oral abx 10-14 day course Follow up with Dr. Marques on 01/07 as scheduled COVID-19 COVID-19 status: Negative Result date/Date tested (Pos, Neg/Pending): 12/26/20 Time Spent With Patient Time with patient: 15-24 minutes Quality VTE Deep Vein Thrombosis/Pulmonary Embolism Present on Admission: No
[2020-12-30 10:00] VITALS: O2SAT 98
[2020-12-30 11:54] VITALS: BP 158/79; PULSE 86; RESP 16; TEMP 36.3; O2SAT 98
--- NOTE | 2020-12-30 13:44 | PC.NURSE ---
Pt discharge education given to pt, discussed- f/u appts, prescribed medications, s/s of stroke, s/s of infection, reasons to seek medical attention. All questions answered, pt expressed understanding. Tele removed, AVIATION SURVIVAL TECHNICIAN informed. IV removed, intact, tolerated well. All belongings packed and sent with pt and sister. Pt left ambulatory to sister's POV at Emergency entrance, escorted by RN.
--- NOTE | 2020-12-30 14:30 | CM.DPC ---
DCP Discharge Home Per Surgeon and Hospitalist, pt medically stable to d/c home on oral abx and anti-inflamatory med with outpt follow up with Surgeon for likely need of outpt colonoscopy. SW met bedside with pt during MDR and he is agreeable with d/c home today and outpt follow up and states that his pain has significantly improved. Pt is not concerned with d/c today and no identified barriers to discharge. Plan: Patient to d/c home today via POV and outpt follow up and no further SW needs at this time. Tricia Edwards, MUSEUM REGISTRAR
--- NOTE | 2020-12-30 21:22 | PM.DS.1 ---
History of Present Illness History of Present Illness Chief complaint: right side abd pain for couple days. Narrative: Per H and P from Val Mathis 12/26/20: 45-year-old male Sanjiv Torres who presented to the ED with a chief compliant of acute onset of abdominal pain that began this evening following diarrhea for 2 days. Patient reports 5-6 diarrhea a day for the last 2 days, he resulted to wearing a diaper. Patient notes that he does not have a sick day plan for his diabetes/insulin. And his only fluid intake has been water and has not supplemented his nutrition to replace electrolytes or sugars. He notes that he took his last meal insulin this afternoon prior to coming to the emergency room but has not taken his Lantus this evening. He reports small hard ?rabbit pellet stool? that was difficult to pass earlier today. Patient denies any fevers, nausea, vomiting, melena, hematochezia, dysuria, urgency, frequency, chest pain, shortness of breath, or worsening pain with deep breathing. Patient came into the ED because he states that he developed sharp intense upper & lower right abdominal pain with diffuse lower left abdominal pain, sharp & throbbing, constant and is exacerbated by movement and any touching of his abdomen, his pain improved with 4 mg of morphine IV in the ED pain level at this time is 2-3/10. As I did the patient's physical exam he began to develop severe shaking and diaphoresis all over which had similarly occurred in the ED as well during physical exam. Patient is hemodynamically stable and appears in no distress. Patient's blood sugar was 131 per lab in the ED, when he arrived on the floor his Accu-Chek BS was 53, patient was given 25 dextrose and D5 normal [id number] was hung. Patient received no insulin in ED and I held his p.m. Lantus dose. Patient has a history of a Phlegmon of infarcting tenia epiplocia surgery 09/04/[address] [facility], laparotomy and lysis of adhesions for small-bowel obstruction surgery on 04/24/[address] [facility]. (patient notes this abdominal pain is similar to his abdominal pain that led to that surgery), patient developed a postop spontaneous bloody drainage and clot, then a draining ruptured hematoma from the midline incision requiring a wound VAC and wound care from March 2020 to July 2020. His wound was positive for Klebsiella, group B strep Viridians, and later Gram-negative bacilli. He developed approximately 1 month ago a midline ventral hernia. 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 No known drug allergies. Denies tobacco, occasional alcohol. No illicit. Dr. Watson consulted with Dr. Gardner by phone and he recommended the patient be admitted for observation started on Rocephin and Flagyl and that he would consult in the morning. Patient's vitals upon admit temp 98.6?, BP 120/56, HR 91, R 18, O2 saturation 94% on room air. Patient's CBC and CMP in ED were all within normal limits with the exception of a glucose of 131 and PTT of 26, lipase and procalcitonin were within normal limits lactate was 3.5. ABD/Pelvis CT:Segmental bowel wall thickening involving multiple loops of distal small bowel as well as the ascending colon and sigmoid colon likely representing an infectious or inflammatory enterocolitis. This includes possible inflammatory bowel disease. Mild associated upstream dilatation of small-bowel loops in the lower abdomen likely represents a functional partial obstruction or ileus. Extensive fat stranding in the lower abdomen and pelvis with a small amount of fluid compatible with a peritonitis. Appendiceal wall thickening and enhancement is nonspecific but appears similar to the prior study and is suggestive of secondary reactive changes secondary to the regional peritonitis. No fluid distension. Discharge Providers Provider Date of admission: 12/26/20 20:25 Discharge Date: 12/30/20 Primary care physician: ZULEYKA Jorgensen Consults: 12/26/20 20:42 Consult to Physician Routine Comment: Consulting Provider: Jeovanny Gardner Reason for consultation: Abd Pain poss APPY/enterocolitis/crohns Has provider been notified: Yes Discharge provider: Donell Crawford MD Summary Hospital Course Discharge Diagnosis: 1. Acute abdominal pain 2. Type 2 DM, insulin dependent 3. Hyperlipidemia 4. Elevated lactate 5. Low magnesium Hospital Course: Mr. Torres was initially admitted with significant abdominal pain. CT scan showed multiple loops of distal small bowel, and colon. Also extensive fat stranding in the lower abdomen and appendiceal wall thickening. He was started on antibiotics and improved. Surgery was consulted, but he was deemed as having no acute need for surgery. He had negative GI stool studies for infection. His etiology of infection remained unclear. It is likely he has appendigitis for which nsaids are recommended for treatment, he was recommended naproxen on discharge. However, can not rule out infection, and he improved on antibiotics so may have a component of appendicitis vs colitis as well. He will continue with 10 more days of antibiotics with cipro and flagyl. Consideration also for possible IBD, and he will follow up with surgery to asses his improvement and possible need for outpatient colonoscopy. He had brief episodes of hypoglycemia due to not eating, and he briefly had an elevated lactate, and low magnesium. But these resolved quickly with repletion and he did not need medication adjustment on discharge. Code status: Full Surrogate/plan of care:Sister Angela SPAULDING PCR:Negative Status at Discharge Cognitive/behavioral status at discharge: oriented Functional status at discharge: independent ambulation Overall status at discharge: patient is progressing back to baseline Time Spent with Patient Time spent: Greater than 30 minutes Exam Vital Signs (past 8 hours): Oxygen Delivery Method Room Air Oxygen Flow Rate 0 Narrative Exam Narrative: GENERAL APPEARANCE: no acute distress. He ambulated throughout the hallway SKIN: no rashes, ulcerations or petechiae. HEENT: Normocephalic atraumatic, extraocular muscles are intact, oropharynx is clear and mucous membranes are moist, neck is supple without adenopathy NECK: Supple and symmetric. There was no thyroid enlargement, and no tenderness, or masses were felt. LUNGS: no wheezes, rhonchi, or rales. CARDIOVASCULAR: regular rate and rhythm without any murmurs, gallops, rubs. Peripheral pulses were 2+ and symmetric. ABDOMEN: Soft, mild RLQ tenderness, greatly improved MUSCULOSKELETAL: There was no tenderness or effusions noted. Muscle strength and tone were normal. EXTREMITIES: No cyanosis, clubbing or edema. NEUROLOGIC: Alert and oriented x 3. Normal affect. Strength is +5/5 in the Upper Extremities and Lower Extremities Bilaterally. Objective Labs Result Diagrams: 12/30/20 05:15 12/30/20 05:15 Labs: Laboratory Results - last 24 hr 12/27/20 12/27/20 12/30/20 04:55 04:55 00:04 WBC RBC Hgb Hct MCV MCH MCHC RDW Plt Count Neut % (Auto) Lymph % (Auto) [place] % (Auto) Eos % (Auto) Baso % (Auto) Neut # (Auto) Lymph # (Auto) [place] # (Auto) Eos # (Auto) Baso # (Auto) Sodium Potassium Chloride Carbon Dioxide BUN Creatinine Estimated GFR BUN/Creatinine Ratio Glucose Calcium Methylmalonic Acid 87 Procalcitonin Stl C. cayetanensis PCR Not detected Stool Rotavirus (PCR) Not detected Stool Adenovirus (PCR) Not detected Stool Astrovirus (PCR) Not detected Stool Cryptosporidium PCR Not detected Stl E.coli Shiga Tox PCR Not detected St Sh/Enteroin Ecoli PCR Not detected Stool E coli O157 PCR Not Reportable Stl Enterotoxigenic E PCR Not detected Stool EPEC (PCR) Not detected Stl E. histolytica PCR Not detected Stool Giardia Lamblia PCR Not detected Stool Sapovirus (PCR) Not detected Stl P. shigelloides PCR Not detected St Y.enterocolitica PCR Not detected Stool Vibrio (PCR) Not detected Stl Vibrio cholerae PCR Not detected Stl Enteroaggr Ecoli PCR Not detected Stl Norovirus GI/GII PCR Not detected Tiss Transglutamin IgG <2 Tiss Transglutamin IgA <2 Campylobacter (PCR) Not detected C. difficile Tox (PCR) Not detected Salmonella (PCR) Not detected Ref Lab Notation Comment 12/30/20 12/30/20 12/30/20 05:15 05:15 05:15 WBC 4.9 RBC 4.21 L Hgb 12.3 L Hct 36.6 L MCV 87.1 MCH 29.2 MCHC 33.5 RDW 13.9 Plt Count 173 Neut % (Auto) 65.1 Lymph % (Auto) 19.2 L [place] % (Auto) 11.5 Eos % (Auto) 3.6 Baso % (Auto) 0.6 Neut # (Auto) 3200 Lymph # (Auto) 1000 L [place] # (Auto) 600 Eos # (Auto) 200 Baso # (Auto) 0 Sodium 136 L Potassium 3.6 Chloride 100 Carbon Dioxide 29 BUN 10 Creatinine 0.62 L Estimated GFR > 60.0 BUN/Creatinine Ratio 16.1 Glucose 177 H Calcium 8.0 L Methylmalonic Acid Procalcitonin 0.40 Stl C. cayetanensis PCR Stool Rotavirus (PCR) Stool Adenovirus (PCR) Stool Astrovirus (PCR) Stool Cryptosporidium PCR Stl E.coli Shiga Tox PCR St Sh/Enteroin Ecoli PCR Stool E coli O157 PCR Stl Enterotoxigenic E PCR Stool EPEC (PCR) Stl E. histolytica PCR Stool Giardia Lamblia PCR Stool Sapovirus (PCR) Stl P. shigelloides PCR St Y.enterocolitica PCR Stool Vibrio (PCR) Stl Vibrio cholerae PCR Stl Enteroaggr Ecoli PCR Stl Norovirus GI/GII PCR Tiss Transglutamin IgG Tiss Transglutamin IgA Campylobacter (PCR) C. difficile Tox (PCR) Salmonella (PCR) Ref Lab Notation [facility] Medical History Abdominal hernia History of small bowel obstruction Insulin dependent diabetes mellitus Surgical History History of abdominal surgery Family History Grandmother Heart attack Stroke Mother Blind Social History household members: family Smoking Status: Never smoker Discharge Plan Discharge Plan Patient Disposition: Home Provider Discharge Comment: Mr. Torres came in with abdominal pain and was found to have evidence of inflammation in his abdomen. He had possible appendigitis, possible colitis, with evidence of peritoneal fluid. He was evaluated by surgery who found he had no surgical indication. He was started on antibiotics and improved. Due to his possible appendigitis he was recommended to take nsaids (like motrin) for a week with food. He is recommended to take 10 more days of antibiotics. He will need surgery follow up for consideration of colonoscopy for further evaluation of cause of his symptoms. Discharge orders & Medications Prescriptions: New levofloxacin 750 mg tablet 750 mg PO DAILY Qty: 10 RF: 0 metronidazole [Flagyl] 500 mg tablet 500 mg PO TID Qty: 30 RF: 0 naproxen 500 mg tablet 500 mg PO BID Qty: 14 RF: 0 Continued (DME) insulin syringe-needle U-100 [Insulin Syringe] 1 mL 29 gauge x 1/2 syringe See Rx Instructions .ROUTE .MEDSUPPLY Qty: 300 RF: 5 (DME) pen needle, diabetic [BD Ultra-Fine Mini Pen Needle] 31 gauge x 3/16 needle See Rx Instructions .ROUTE .MEDSUPPLY Qty: 100 RF: 5 (DME) Dexcom G6 Transmitter Device See Rx Instructions .ROUTE .MEDSUPPLY Qty: 1 RF: 3 (DME) Dexcom G6 Rubber Goods Inspector Tester Misc See Rx Instructions .ROUTE .MEDSUPPLY Qty: 1 RF: 0 insulin aspart U-100 [Novolog U-100 Insulin aspart] 100 unit/mL solution 5 - 10 unit SUBCUT TID 90 Days Qty: 30 RF: 1 simvastatin 10 mg tablet 10 mg PO BEDTIME Qty: 90 RF: 3 (DME) blood sugar diagnostic [Blood Glucose Test] Strip See Rx Instructions .ROUTE .MEDSUPPLY Qty: 300 RF: 3 (DME) Dexcom G6 Sensor Device See Rx Instructions .ROUTE .MEDSUPPLY Qty: 3 RF: 5 acetaminophen [Tylenol] 325 mg capsule 650 mg PO QID PRN (Reason: pain) Qty: 60 RF: 0 Lantus Solostar U-100 Insulin 100 unit/mL (3 mL) insulin pen 60 unit SUBCUT DAILY RF: 0 Follow up/Referrals: Aubrie Greene ARNP [Primary Care Provider] - Visit Report/Discharge Packet Instructions: Naproxen, Metronidazole, Levofloxacin Discharge Data Primary Care Provider: Aubrie Greene Quality VTE Deep Vein Thrombosis/Pulmonary Embolism Present on Admission: No
== END 2020-12-30 13:53 | disposition home or self-care (01) | DRG 254 ==
LOC: ED 20:25 → AC 12-27 13:55
PROVIDERS: Internal Medicine; Nurse Practitioner Adult Health; Specialist; Surgery; Admitting Provider Nurse Practitioner Family; Emergency Provider Emergency Medicine; PCP Nurse Practitioner; Referring Provider Emergency Medicine; Visit Provider Nurse Practitioner Family
DX: K37 Unspecified appendicitis (principal); K52.9 Noninfective gastroenteritis and colitis, unspecified; Z20.822 Contact with and (suspected) exposure to COVID-19; E86.0 Dehydration; E13.9 Other specified diabetes mellitus without complications; Z79.899 Other long term (current) drug therapy; E83.42 Hypomagnesemia; E78.5 Hyperlipidemia, unspecified; R79.89 Other specified abnormal findings of blood chemistry
CPT/HCPCS: 36415; 74177; 80048; 80053; 80061; 81001; 82306; 82533; 82607; 82728; 82962; 83036; 83516; 83540; 83550; 83605; 83690; 83735; 83921; 84132; 84145; 84439; 84443; 85025; 85610; 85730; 86140; 87040; 87507; 87635; 90471; 90656; 96361; 96365; 96367; 96375; 99231; 99232; 99253; 99284; J0696; J1650; J1885; J2270; J3475; Q2038

== ENCOUNTER → 2021-07-06 08:45 | Outpatient (CLI) | payer OTHER, MEDICAID, SELFPAY ==
[2020-12-26 21:20] VITALS: BMI 27.8
[2021-07-06 09:39] LABS: Hemoglobin A1C% w Est Avg Glu 8.7 % (4.0-6.0)
[2021-07-06 10:08] LABS: Creatinine Urine Random 108.7 mg/dL
[2021-07-06 10:11] LABS: Alanine Aminotransferase 17 IU/L (<50); Albumin 4.1 g/dL (3.5-5.0); Albumin Globulin Ratio 1.6 (1.0-2.8); Alkaline Phosphatase 53 U/L (38-126); Aspartate Aminotransferase 19 IU/L (17-59); BUN Creatinine Ratio 30.4 (6-22); Bilirubin Total 0.5 mg/dL (0.2-1.3); Blood Urea Nitrogen 21 mg/dL (9-20); Calcium 9.5 mg/dL (8.4-10.2); Carbon Dioxide 31 mmol/L (22-32); Chloride 101 mmol/L (98-107); Cholesterol 194 mg/dL (140-199); Estimated Glomerular Filt Rate > 60.0 mL/min (>60); Globulin 2.5 g/dL (1.7-4.1); Glucose 185 mg/dL (70-100); HDL Cholesterol 44 mg/dL (40-60); HEMOLYSIS < 15 (0-50); LDL Cholesterol Calculated 124 mg/dL (<100); Potassium 4.7 mmol/L (3.4-5.1); Sodium 138 mmol/L (137-145); Total Protein 6.6 g/dL (6.3-8.2); Triglycerides 129 mg/dL (35-150)
[2021-07-06 10:14] LABS: Microalbumi Creatinin Ratio Ur 34.9 ug/mg CR (<30); Microalbumin Urine Random 3.8 mg/dL (0-1.6)
== END ==
PROVIDERS: PCP Nurse Practitioner; Referring Provider Nurse Practitioner; Visit Provider Nurse Practitioner
DX: E11.9 Type 2 diabetes mellitus without complications (principal); E78.2 Mixed hyperlipidemia; Z79.4 Long term (current) use of insulin; Z79.899 Other long term (current) drug therapy
CPT/HCPCS: 36415; 80053; 80061; 82043; 82570; 83036

== ENCOUNTER → 2021-07-20 08:56 | Outpatient (CLI) | payer OTHER, MEDICAID, SELFPAY ==
[2020-12-26 21:20] VITALS: BMI 27.8
[2021-07-20 15:51] LABS: COVID19 -Nasal RAPID Negative (Negative)
== END ==
PROVIDERS: PCP Nurse Practitioner; Referring Provider Surgery; Visit Provider Surgery
DX: Z20.822 Contact with and (suspected) exposure to COVID-19 (principal); Z01.812 Encounter for preprocedural laboratory examination
CPT/HCPCS: 87635; C9803

== ENCOUNTER 2021-07-21 06:25 | Day surgery (SDC) | payer OTHER, MEDICAID, SELFPAY ==
[2020-12-26 21:20] VITALS: BMI 27.8
[2021-07-17 15:08] VITALS: BMI 29.8
[2021-07-21] VITALS (22 sets, daily range): BP systolic 80–137; BP diastolic 40–91; PULSE 71–97; RESP 10–16; TEMP 36.1–37.4; O2SAT 94–99; BMI 29.8
[2021-07-21] MEDS: LACTATED RINGERS 1,000 ML 42 ML IV ×2 (07:08→08:36)
[2021-07-21] MEDS: ACETAMINOPHEN 325 MG TABLET 975 MG PO (07:12)
[2021-07-21] MEDS: GABAPENTIN 300 MG CAPSULE PO (07:13)
--- NOTE | 2021-07-21 07:35 | PM.PREOP ---
Pre-operative Note Interval Note History & Physical reviewed/Exam performed by Physician: Yes Changes to H&P: No
[2021-07-21] MEDS: CEFAZOLIN 1 GM VIAL 2 GM IV (07:58)
--- NOTE | 2021-07-21 08:08 | SUR.OPER ---
Supine on padded OR bed, head on pillow, arms secured on padded arm boards at <90 degrees abduction, legs uncrossed, safety belt at thigh, tape over blanket over lower legs.
[2021-07-21] MEDS: BUPIVACAINE 0.25% (PF) VIAL 30 ML INJ (08:16)
[2021-07-21] MEDS: SODIUM CHLORIDE IRRIG SOLUTION 1,000 ML, CEFAZOLIN VIAL 1 GM IRR (10:17)
[2021-07-21] MEDS: BUPIVACAINE LIPOSOME 266 MG/20 ML VIAL INJ (10:19)
--- NOTE | 2021-07-21 12:18 | SUR.PHASEI ---
Report received from TYRA Arnold and care assumed.
[2021-07-21] MEDS: OXYCODONE IR 5 MG TABLET PO ×3 (12:34→23:40)
--- NOTE | 2021-07-21 12:39 | SUR.PHASEI ---
Started on incentive spirometer. Able achieve 1800cc.
[2021-07-21] MEDS: INSULIN LISPRO 100 UNIT/ML 3ML VIAL SUBCUT ×2 (12:47→18:04)
--- NOTE | 2021-07-21 12:54 | SUR.PHASEI ---
Darcie at 1200 = 217. Dr Owens notified. 5 units humalog given subq.
--- NOTE | 2021-07-21 13:08 | SUR.PHASEI ---
Small poke hole to left, upper side of aquacell drsg with scant bloody drng. Dr Marques at bedside to assess. No further orders.
--- NOTE | 2021-07-21 13:10 | SUR.PHASEI ---
Pt transported to room 203 by TYRA Mclain and TYRA West. Belongings bag with pt.
[2021-07-21] MEDS: LACTATED RINGERS 1,000 ML 100 ML IV ×2 (13:32→21:49)
--- NOTE | 2021-07-21 16:33 | PM.OP.1 ---
Operative Date/Time/Diagnoses Date of procedure: 07/21/21 Time of procedure: 16:33 Pre-op diagnosis: Incisional hernia Post-op diagnosis: same Procedure & Clinicians Procedure: Extensive lysis of adhesions Open ventral hernia repair Same procedure as scheduled: Yes Indications: 45-year-old man multiple prior abdominal operations developed a large reducable incisional hernia extending from the umbilicus to the xiphoid process. Surgeon: Christiano Marquse Operative Notes Findings: Extensive intra-abdominal adhesions. Incisional defect extending from the xiphoid to the umbilicus with a [place] cheese defect containing small-bowel Specimen(s): none sent Estimated Blood Loss (mL): 30 Procedure in detail: Patient was brought to the operating room placed supine on the table. Bilateral lower extremity compression devices were applied. They received 2 g of Ancef prior to skin incision. Prepped and draped in sterile fashion, ioban was placed. Time-out was performed. A midline incision was made superior to the umbilicus with a knife. The previous midline scar was excised. The subcutaneous tissue was divided to expose the midline fascia. The fascia had a ecuadorean cheese defect extending from the umbilicus to xiphoid. The fascia was grasped elevated and sharply opened. An extensive complete lysis of all visceral adhesions was performed with sharp dissection for approximately 90 minutes. A towel was then placed over the visceral content to protect it out of harms way. The retromuscular space was entered by incising the posterior rectus sheath approximately 1 cm from its edge. The retromuscular plane was developed with care to protect the neurovascular structures. The retrorectus space was developed in the same fashion on the contralateral side. The spaces were then connected superiorly near the xiphoid and inferiorly near the umbilicus. The posterior sheath was then closed with running 2-0 vicryl. I did not have a single sheet of mesh large enough to span the defect and therefore 4 Bard Ventralex mesh pieces of 8 x 4 cm were placed in the retro rectus space such that the entire defect was adequately covered. Each mesh was anchored with interrupted Ethibond in transfascial fashion using the sathya cole device such that the mesh lay under physiologic tension. The individual mesh segments were then linked together using Ethibond suture. A 10 [place] flat drain was placed anterior to the mesh and benhind the anterior sheath brought out through the skin. The anterior sheath/ linea alba was then closed with a running 1. PDS suture. Hemostasis was checked. The subcutaneous tissue was then reapproximated using Vicryl skin closed with running 4-0 Monocryl followed by the application of Dermabond. Patient emerged from anesthesia was extubated and transferred to recovery room in stable condition. Complications: none Post-operative Condition: stable Disposition: observation
[2021-07-21] MEDS: ACETAMINOPHEN 325 MG TABLET 650 MG PO ×2 (18:03→23:39)
[2021-07-21] MEDS: DOCUSATE 100 MG CAPSULE PO (20:07)
[2021-07-21] MEDS: KETOROLAC 30 MG/ML VIAL IV (20:07)
[2021-07-21] MEDS: ONDANSETRON 4 MG/2 ML INJ IV (23:49)
[2021-07-22] VITALS (8 sets, daily range): BP systolic 99–151; BP diastolic 45–80; PULSE 94–101; RESP 14–20; TEMP 36.8–37.2; O2SAT 93–100
[2021-07-22] MEDS: KETOROLAC 30 MG/ML VIAL IV (01:40)
[2021-07-22] MEDS: DOCUSATE 100 MG CAPSULE PO (08:58)
[2021-07-22] MEDS: ACETAMINOPHEN 325 MG TABLET 650 MG PO ×2 (09:00→14:56)
[2021-07-22] MEDS: ENOXAPARIN 40 MG/0.4 ML SYRINGE SUBCUT (09:01)
--- NOTE | 2021-07-22 10:49 | CM.DANOTE ---
DCP: Case received, EMR reviewed and met with patient. Introduced self and role. Was able to obtain information regarding patient's baseline activity status prior to hospitalization. DCP assessment completed with information currently available. Patient is a 45 year old male who admitted yesterday morning to the care of the surgical team PCP: Aubrie GARDINER. Payer: confirmed: [employer]. Patient came to the hospital via private vehicle for surgical procedure. He had open ventral hernia repair. Met with patient in his room. He is alert and oriented. He is independent at his baseline. He resides in [place] with his sister. P: DCP to continue to follow. Patient should be able to go home when he is deemed medically stable. Merari Black RN/Safety Spec Discharge Planning/Care Management CM Discharge Assessment Start: 07/22/21 10:43 Freq: Status: Active Protocol: Document 07/22/21 10:43 (Rec: 07/22/21 10:48 [id number]) Discharge Planning Assessment Assigned Outside Barrel Lathe Operator Merari Black RN/Safety Spec Advance Directives? No History Provided By Patient,Medical Record Prior Living Arrangements House Household Members family Type of transporation used prior to Drives own vehicle admit Independent with ADL's Yes Is patient alert and oriented? Yes Caregiver for Another No Barriers to Discharge No Discharge Plan Home Transportation Arrangement Sister Referrals Initiated None needed Whiteboard Updated in Patient Room with Yes name and ext. # of Outside Barrel Lathe Operator Review Status In Process Next Review Type Continued Stay Review Pre-Anesthesia Assessment Start: 07/17/21 15:08 Freq: Status: Active Protocol: Document 07/17/21 15:08 CAB (Rec: 07/17/21 15:19 CAB [id number]) Pre-Anesthesia Assessment Patient Information Reviewed Via Chart Review Comment COVID screen @ 07/20/21 Primary Care Provider Aubrie Greene Seen Specialist in Last 12 Months Yes Specialist Seen Emergency,General surgeon Comment Recent admit to 12/26/20- Primary Language Belarusian Preferred Language Belarusian Height 6 ft 1 in Weight 226 lb Body Mass Index (BMI) 29.8 Hx Anesthesia Reactions No Hx Family Anesthesia Reaction No Hx Malignant Hyperthermia No Hx Blood Transfusion Reaction No Anesthesia Review Requested No Floor Space Allocator No alcohol intake frequency holidays/special occasions only Smoking Status Never smoker Substance Use Type does not use Pain Present Pain Reported History of Falling (Recent or History of No ) Patient is completely paralyzed or No completely immobile Mental Status Oriented to own ability Is patient on oxygen? No Does patient have TAMAYO/SOB No Hx Sleep Apnea No CPAP/BIPAP use not prescribed Currently Taking a Beta Manohar No Hx Chest Pain No Hx SOB No Hx Syncope or Dizziness No Anti-Coagulant Therapy No Has a Trip Follower No Cardiac Testing No Hx Pacemaker/ICD No Pacemaker Rep Required? No Cardiac Clearance Received Not Applicable Urinary Catheter Present No Hx Urinary Self Catheterization No Diabetes Yes HgbA1C 8.7 Date 07/06/21 Presence of External or Internal Medical No Devices Marital Status Single Lives With family Patient Discharge Plan Description Return Home Do You Have Any Spiritual Beliefs That No May Affect Your HC Choices? Do You Have Any Cultural Practices That No May Affect Your HC Choices? Emergency Contact Name Angela Torres (Sister) Emergency Contact Advance Directives? No Power of Radiologic Therapist No Discharge Planning/Care Management CM Discharge Assessment Start: 07/22/21 10:43 Freq: Status: Active Protocol: Document 07/22/21 10:43 (Rec: 07/22/21 10:48 [id number]) Discharge Planning Assessment Assigned Outside Barrel Lathe Operator Merari Black RN/Safety Spec Advance Directives? No History Provided By Patient,Medical Record Prior Living Arrangements House Household Members family Type of transporation used prior to Drives own vehicle admit Independent with ADL's Yes Is patient alert and oriented? Yes Caregiver for Another No Barriers to Discharge No Discharge Plan Home Transportation Arrangement Sister Referrals Initiated None needed Whiteboard Updated in Patient Room with Yes name and ext. # of Outside Barrel Lathe Operator Review Status In Process Next Review Type Continued Stay Review Pre-Anesthesia Assessment Start: 07/17/21 15:08 Freq: Status: Active Protocol: Document 07/17/21 15:08 CAB (Rec: 07/17/21 15:19 CAB [id number]) Pre-Anesthesia Assessment Patient Information Reviewed Via Chart Review Comment COVID screen @ 07/20/21 Primary Care Provider Aubrie Greene Seen Specialist in Last 12 Months Yes Specialist Seen Emergency,General surgeon Comment Recent admit to 12/26/20- Primary Language Belarusian Preferred Language Belarusian Height 6 ft 1 in Weight 226 lb Body Mass Index (BMI) 29.8 Hx Anesthesia Reactions No Hx Family Anesthesia Reaction No Hx Malignant Hyperthermia No Hx Blood Transfusion Reaction No Anesthesia Review Requested No Floor Space Allocator No alcohol intake frequency holidays/special occasions only Smoking Status Never smoker Substance Use Type does not use Pain Present Pain Reported History of Falling (Recent or History of No ) Patient is completely paralyzed or No completely immobile Mental Status Oriented to own ability Is patient on oxygen? No Does patient have TAMAYO/SOB No Hx Sleep Apnea No CPAP/BIPAP use not prescribed Currently Taking a Beta Manohar No Hx Chest Pain No Hx SOB No Hx Syncope or Dizziness No Anti-Coagulant Therapy No Has a Trip Follower No Cardiac Testing No Hx Pacemaker/ICD No Pacemaker Rep Required? No Cardiac Clearance Received Not Applicable Urinary Catheter Present No Hx Urinary Self Catheterization No Diabetes Yes HgbA1C 8.7 Date 07/06/21 Presence of External or Internal Medical No Devices Marital Status Single Lives With family Patient Discharge Plan Description Return Home Do You Have Any Spiritual Beliefs That No May Affect Your HC Choices? Do You Have Any Cultural Practices That No May Affect Your HC Choices? Emergency Contact Name Angela Torres (Sister) Emergency Contact Advance Directives? No Power of Radiologic Therapist No
[2021-07-22] MEDS: INSULIN LISPRO 100 UNIT/ML 3ML VIAL SUBCUT ×2 (12:55)
--- NOTE | 2021-07-22 15:08 | CM.DPNOTE ---
Addendum entered by Annita Mccartney 07/22/21 17:01: Received call from [employer] transport, they cannot find transportation. Notified nursing to call [employer] with medical voucher. RN/Vickie aware and agreeable. Form for medical necessity signed. KJS Original Note: Faxed form to [employer] transport for [address] bulk picker. Fax conf. received. Gilda Lei CM Asst.
--- NOTE | 2021-07-22 15:58 | PC.NURSE ---
Addendum entered by Whitney Villanueva R.N. 07/22/21 17:50: Significant delay in taxi arriving for pt's discharge to home. [employer] Rider, Vickie, aware and working on this mode of transportation. @ 1750, taxi arrives to transport pt to home. Pt left hospital in stable condition with [employer] escort via wheelchair. Original Note: Pt resting quietly in bed alert and awake. Awaiting notification pt's taxi is available for pt's transport to home. Pt was provided with written and verbal discharge instructions. States no further questions re care of FRANSICO drain @ home. Pt's prescriptions have been transmitted electronically to [facility] and pt was made aware. Pt reports able to be independent in dressing self. No concerns or complaints verbalized.
== END 2021-07-22 17:52 | disposition home or self-care (01) ==
LOC: OR 06:29 → AC 06:30
PROVIDERS: PCP Nurse Practitioner; Referring Provider Surgery; Visit Provider Surgery
PROC: (CPT 49560; principal; 2021-07-21 07:45)
DX: K43.2 Incisional hernia without obstruction or gangrene (principal); K66.0 Peritoneal adhesions (postprocedural) (postinfection); E11.9 Type 2 diabetes mellitus without complications; Z79.4 Long term (current) use of insulin
CPT/HCPCS: 49560; 49568; 82962; 94760; C1781; C9290; J0330; J0690; J1170; J1650; J1815; J1885; J2405; J2704